=== PATIENT | female | born 1955 | race Caucasian/White ===

== ENCOUNTER 2017-05-26 09:28 | Emergency (ER) | payer MEDICARE, MEDICAID ==
--- NOTE | 2017-05-26 10:21 | XRAY Preliminary Report ---
Exam: XR Wrist 4 View LT IMPRESSION: Mild osteoarthritis without evidence of acute fracture. [facility] SITE ID: [id number]
--- NOTE | 2017-05-26 10:24 | XRAY Report ---
EXAM: LEFT WRIST RADIOGRAPHY EXAM DATE: 05/26/2017 10:06 AM. CLINICAL HISTORY: Recent fracture and re-injury. COMPARISON: None. TECHNIQUE: 4 views. FINDINGS: Bones: Normal. No fractures or bone lesions. Joints: Mild osteoarthritic changes noted. No subluxations. Soft Tissues: Normal. No soft tissue swelling. IMPRESSION: Mild osteoarthritis without evidence of acute fracture. [facility] Referring Provider Line: [phone] SITE ID: [id number]
--- NOTE | 2017-05-26 11:08 | ED Physician Documentation ---
PD HPI UPPER EXT INJURY - Stated complaint Stated Complaint: L WRIST PX - Chief complaint Chief Complaint: Ext Problem - History obtained from History obtained from: Patient - History of Present Illness Location: Left, Wrist Type of injury: Other (catching use) Where injury occurred: Home Timing - onset: How many days ago (2) Timing - duration: Days (2) Timing - details: Abrupt onset, Still present Improved by: Rest, Immobilization Worsened by: Moving, Palpating Associated symptoms: No: Weakness, Numbness Contributing factors: No: Anticoagulated Similar symptoms before: Diagnosis (wrist fracture) Recently seen: Emergency Dept - Additonal information Additional information: 62-year-old female was seen in an emergency department in [place] In the middle of March and diagnosed with a hand fracture she was in a cast for about 1 month. She took this cast off about 5 days ago because she got it wet. She was doing well with her pain until yesterday when she went to get into a truck and had to reach to grab something and pulled on her arm hard. She has since had some pain in the wrist itself.She is able to move the wrist and range of motion but with pain and it is stiff. Review of Systems Constitutional: denies: Fever Respiratory: denies: Cough GI: denies: Vomiting Skin: denies: Rash Musculoskeletal: reports: Extremity pain, Joint pain. 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 - Past Surgical History Past Surgical History: Yes /ACCOUNT RESOLUTION EXPERT: 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, Breast implants, Other - Allergies Allergies/Adverse Reactions: Allergies Allergy/AdvReac Type Severity Reaction Status Date / Time codeine Allergy Rash Verified 05/26/17 09:33 Latex, Natural Rubber Allergy Rash Verified 05/26/17 09:33 - Social History Does the pt smoke?: No Smoking Status: Never smoker Does the pt drink ETOH?: Yes Does the pt have substance abuse?: No Substance Use and Type: Marijuana - Immunizations Immunizations are current?: Yes PD ED PE NORMAL - Vitals Vital signs reviewed: Yes (Hypertension) - General General: No acute distress, Well developed/nourished - HEENT HEENT: Atraumatic, PERRL - Respiratory Respiratory: No respiratory distress - Derm Derm: Normal color, Warm and dry, No rash - Extremities Extremities: No deformity, No edema, Other (There is tenderness to the dorsal wrist on the left side. There is tenderness over the anatomic snuffbox and there is restriction to range of motion secondary to stiffness.) - Neuro Neuro: No motor deficit, No sensory deficit - Psych Psych: Normal mood, Normal affect Results - Vitals Vitals: Vital Signs - 24 hr 05/26/17 09:31 Temperature 36 C L Heart Rate 80 Respiratory 16 Rate Blood Pressure 171/78 H O2 Saturation 100 Oxygen O2 Source Room air - Rads (name of study) Left wrist Radiology: Prelim report reviewed (Impression: Mild osteoarthritis without evidence of acute fracture.), Discussed with rads, EMP read indepedently, See rad report PD MEDICAL DECISION MAKING - ED course Complexity details: reviewed results, re-evaluated patient, considered differential, d/w patient, d/w internal consultant (Dr. Bowen reviews films with me and recommends conservative treatment to include range of motion exercises. This is consistent with post cast syndrome.) ED course: 62-year-old female who is fallen and had a cast placed for about 1 month does not have any evidence of fracture on today's films. She does have some pain and stiffness in her wrist and this is consistent with post cast syndrome. The films have been reviewed by myself with both the radiologist and the orthopod. Departure - Departure Disposition: 01 Home, Self Care Clinical Impression: Wrist pain, left Condition: Stable Instructions: ED Sprain Wrist Follow-Up: [facility] [Provider Group] Comments: Today it appears the pain in your wrist is likely due to the recent immobilization of the wrist and we recommend range of motion exercises and orthopedic follow up. Today in the Emergency Department your blood pressure was elevated. This can happen from the stress of the visit itself, from a current illness or circumstance or from uncontrolled hypertension. If you take blood pressure medications take your usual mediations, have your blood pressure re-checked in an appropriate setting and follow up any elevation with your primary care doctor.
[2017-05-26 11:19] VITALS: BP 176/64
== END 2017-05-26 11:19 | disposition home or self-care (01) ==
LOC: ED 09:28
DX: M25.532 Pain in left wrist (principal); Z85.3 Personal history of malignant neoplasm of breast
CPT/HCPCS: 99283

== ENCOUNTER 2017-06-29 05:38 | Outpatient (CLI) | payer MEDICARE, MEDICAID | END 2017-06-29 05:39 | disposition critical access hospital (66) | LOC: EMS 05:38 | PROVIDERS: ATTEND Surgery | DX: R10.9 Unspecified abdominal pain (principal) | CPT/HCPCS: A0425; A0427 ==

== ENCOUNTER 2017-06-29 05:56 | Emergency (ER) | payer MEDICARE, MEDICAID ==
--- NOTE | 2017-06-29 06:01 | ED Physician Documentation ---
PD HPI ABD PAIN - History obtained from History obtained from: Patient - History of Present Illness Timing - onset: How many days ago (4-5 days of persistent mid to left abd pain, worse last night. Not affected by eating but has had less appetite.) Timing - duration: Days (4-5) Timing - details: Gradual onset, Still present, Constant Quality: Aching, Sharp, Pain Location: LUQ, Periumbilical Radiation: Lower back Improved by: No: Eating, Vomiting (had some episodes of dry-heaving the past couple days, per patient.), Position Worsened by: Position, Palpation. No: Eating, Moving, Breathing Associated symptoms: Nausea, Vomiting (just couple times), Loss of appetite. No : Fever, Hematemesis, Diarrhea (loose stool once 2 days ago, otherwise formed), Constipation, Hematochezia, Dysuria, Near syncope / syncope, Weight loss Similar symptoms before: Has not had sx before Recently seen: Not recently seen (had outpt abd U/S for concern of aneurysm, which showed normal exam (this was few months ago).) - Stated complaint Stated Complaint: LLQ PAIN Review of Systems Constitutional: reports: Myalgias. denies: Fever, Chills Nose: denies: Rhinorrhea / runny nose, Congestion Throat: denies: Sore throat Cardiac: denies: Chest pain / pressure, Palpitations Respiratory: denies: Dyspnea, Cough GI: reports: Abdominal Pain, Nausea. denies: Abdominal Swelling, Hematemesis, Bloody / black stool : denies: Dysuria, Frequency, Discharge Skin: denies: Rash, Lesions Neurologic: reports: Generalized weakness. denies: Near syncope, Altered mental status, Headache Endocrine: denies: Weight loss, Easy bruising / bleeding Immunocompromised: denies: Immunocompromised PD PAST MEDICAL HISTORY - Past Medical History Cardiovascular: None Respiratory: None Neuro: None Endocrine/Autoimmune: None - Family History Family history: reports: Non contributory. denies: Aortic aneursym - Allergies Allergies/Adverse Reactions: Allergies Allergy/AdvReac Type Severity Reaction Status Date / Time codeine Allergy Rash Verified 06/29/17 06:07 Latex, Natural Rubber Allergy Rash Verified 06/29/17 06:07 PD ED PE NORMAL - Vitals Vital signs reviewed: Yes - General General: Alert and oriented X 3, No acute distress, Well developed/nourished - HEENT HEENT: Atraumatic, Moist mucous membranes, Pharynx benign - Neck Neck: Supple, no meningeal sign, No adenopathy - Cardiac Cardiac: RRR, No murmur - Respiratory Respiratory: Clear bilaterally - Abdomen Abdomen: Normal bowel sounds, Soft, Non distended, No organomegaly, Other ( tender above umbilicus and LUQ area with some guarding and percussion tenderness. No rebound nor referred tenderness. Bowel sounds slightly decreased. ) - Female Female : Deferred - Rectal Rectal: Deferred - Back Back: No CVA TTP - Derm Derm: Normal color - Extremities Extremities: No deformity, No tenderness to palpate, Normal ROM s pain, No edema , No calf tenderness / cord - Neuro Neuro: Alert and oriented X 3, No motor deficit, Normal speech - Psych Psych: Normal mood, Normal affect - Vitals Vitals: Vital Signs - 24 hr 06/29/17 06/29/17 06/29/17 06:03 07:01 08:01 Temperature 36.3 C L Heart Rate 72 79 85 Respiratory 16 16 20 Rate Blood Pressure 170/74 H 156/60 H 144/54 H O2 Saturation 100 98 100 06/29/17 08:56 Temperature Heart Rate 61 Respiratory 18 Rate Blood Pressure 150/60 H O2 Saturation 98 Oxygen O2 Source Room air - Labs Labs: Laboratory Tests 06/29/17 06/29/17 06/29/17 06:55 06:55 06:55 WBC 6.1 RBC 3.86 L Hgb 12.1 Hct 36.5 L MCV 94.5 MCH 31.4 H MCHC 33.3 RDW 13.1 Plt Count 216 MPV 9.3 Neut # 3.8 Lymph # 1.8 [place] # 0.4 Eos # 0.1 Baso # 0.0 Absolute Nucleated RBC 0.01 Nucleated RBCs 0.1 Sodium 142 Potassium 2.6 L Chloride 114 H Carbon Dioxide 22 Anion Gap 6.0 BUN 17 Creatinine 0.6 Estimated GFR (MDRD) 101 Glucose 71 Calcium 6.8 L Total Bilirubin 0.7 AST 14 ALT 14 Alkaline Phosphatase 54 Total Protein 5.1 L Albumin 3.1 L Globulin 2.0 L Albumin/Globulin Ratio 1.6 Lipase 28 Urine Color Urine Clarity Urine pH Ur Specific [place] Urine Protein Urine Glucose (UA) Urine Ketones Urine Occult Blood Urine Nitrite Urine Bilirubin Urine Urobilinogen Ur Leukocyte Esterase Ur Microscopic Review Urine Culture Comments H. pylori IgG Antibody Negative 06/29/17 09:53 WBC RBC Hgb Hct MCV MCH MCHC RDW Plt Count MPV Neut # Lymph # [place] # Eos # Baso # Absolute Nucleated RBC Nucleated RBCs Sodium Potassium Chloride Carbon Dioxide Anion Gap BUN Creatinine Estimated GFR (MDRD) Glucose Calcium Total Bilirubin AST ALT Alkaline Phosphatase Total Protein Albumin Globulin Albumin/Globulin Ratio Lipase Urine Color YELLOW Urine Clarity CLEAR Urine pH 7.5 Ur Specific [place] 1.010 Urine Protein NEGATIVE Urine Glucose (UA) NEGATIVE Urine Ketones NEGATIVE Urine Occult Blood TRACE-INTA Urine Nitrite NEGATIVE Urine Bilirubin NEGATIVE Urine Urobilinogen 0.2 (NORMAL) Ur Leukocyte Esterase NEGATIVE Ur Microscopic Review NOT INDICATED Urine Culture Comments NOT INDICATED H. pylori IgG Antibody PD MEDICAL DECISION MAKING - ED course Complexity details: reviewed results, considered differential (not linked with eating. Pain steady for few days. Presume diverticular on left. She had had eval for AAA by abd U/S few months ago and that was normal. Will get regular CT abd, labs, urine. ), d/w patient - ED course ED course: Patient is a 62-year-old female signed out to me this morning pending results of her CAT scan. This patient tells me she has had abdominal pain on the left side off and on for 10 years but for the last week it is been a little worse than usual. She really has not had any other symptoms such as nausea, vomiting fever, chills, constipation diarrhea or lower urinary symptoms. There are no gynecologic complaints either. Her lab work showed mild hypokalemia which was replaced in the emergency department. CT scan of the abdomen and pelvis and other lab work is unremarkable. Her urine is checked and is clean. She was given fluid hydration here and I examined her abdomen is completely soft and benign there is mild increased borborygmi. At this point time I will discharge her to home with a small amount of potassium supplementation and Bentyl I will have her follow-up with her physician and return if worse. Disposition: To home Clinical impression: 1. Lower abdominal pain-cause unknown 2. Mild hypokalemia Rosalio LEIJA (Kike Santamaria) Departure - Departure Disposition: 01 Home, Self Care Clinical Impression: Abdominal pain Condition: Good Instructions: ED Abdominal Pain Unkn Cause Follow-Up: Tiana Simons ARNP [Primary Care Provider] - Prescriptions: Dicyclomine [Bentyl] 10 mg PO TID PRN #16 capsule PRN Reason: Abdominal Pain
[2017-06-29] MEDS ORDERED: MAG HYDROX/AL HYDROX/SIMETH 30 ML UDC PO STA (06:28)
[2017-06-29] MEDS ORDERED: FAMOTIDINE 20 MG/50 ML 50 ML IV ONE ×2 (06:28→06:34)
[2017-06-29] MEDS ORDERED: SODIUM CHLORIDE 0.9% 1,000 ML IV ONE (06:29)
[2017-06-29] MEDS ORDERED: MAG HYDROX/AL HYDROX/SIMETH 30 ML UDC ONE (06:35)
[2017-06-29 07:05] LABS: BASOPHILS % (AUTO) 0.5 %; EOSINOPHILS # (AUTO) 0.1 10^3/uL (0.0-0.7); EOSINOPHILS % (AUTO) 1.6 %; HCT - HEMATOCRIT 36.5 % (37.0-47.0); HGB - HEMOGLOBIN 12.1 g/dL (12.0-16.0); LYMPHOCYTES # (AUTO) 1.8 10^3/uL (1.5-3.5); LYMPHOCYTES % (AUTO) 28.9 %; MEAN CORPUSCULAR HEMOGLOBIN 31.4 pg (27.0-31.0); MEAN CORPUSCULAR HGB CONC 33.3 g/dL (32.0-36.0); MEAN CORPUSCULAR VOLUME 94.5 fL (81.0-99.0); MEAN PLATELET VOLUME 9.3 fL (7.9-10.8); MONOCYTES # (AUTO) 0.4 10^3/uL (0.0-1.0); MONOCYTES % (AUTO) 7.3 %; NEUTROPHILS # (AUTO) 3.8 10^3/uL (1.5-6.6); NEUTROPHILS % (AUTO) 61.7 %; NUCLEATED RED BLOOD CELLS AUTO 0.1 /100WBC; RED BLOOD COUNT 3.86 10^6/uL (4.20-5.40); RED CELL DISTRIBUTION WIDTH 13.1 % (12.0-15.0); UNCORRECTED WHITE BLOOD COUNT 6.1 x10^3/uL; WHITE BLOOD COUNT 6.1 x10^3/uL (4.8-10.8)
[2017-06-29 07:18] LABS: ALBUMIN/GLOBULIN RATIO 1.6 (1.0-2.2); BILIRUBIN,TOTAL 0.7 mg/dL (0.2-1.0); CALCIUM 6.8 mg/dL (8.5-10.3); CREATININE 0.6 mg/dL (0.4-1.0); POTASSIUM 2.6 mmol/L (3.5-5.0); TOTAL PROTEIN 5.1 g/dL (6.7-8.2)
[2017-06-29 07:20] LABS: H. PYLORI IGG ANTIBODY Negative (Negative); HPYLORI NEG QC Negative (Negative); HPYLORI POS QC POSITIVE (Positive)
[2017-06-29] MEDS ORDERED: POTASSIUM CHLOR 10 MEQ/100 ML 100 ML IV ONE ×2 (07:27→07:42)
[2017-06-29] MEDS ORDERED: POTASSIUM BICARB 25 MEQ TABLET PO STA (07:27)
[2017-06-29] MEDS ORDERED: POTASSIUM BICARB 25 MEQ TABLET PO ONE (07:42)
[2017-06-29] MEDS ORDERED: ONDANSETRON 4 MG/2 ML VIAL IVP STA (08:00)
[2017-06-29] MEDS ORDERED: ONDANSETRON 4 MG/2 ML VIAL ONE (08:06)
[2017-06-29] MEDS ORDERED: IOPAMIDOL-300 100 ML VIAL IVP ONE (08:30)
--- NOTE | 2017-06-29 09:37 | CT Preliminary Report ---
Exam: CT Abdomen/Pelvis W/ IMPRESSION: No acute abnormality on abdomen and pelvis CT to explain patient's abdominal pain. [facility] SITE ID: [id number]
--- NOTE | 2017-06-29 09:40 | CT Report ---
EXAM: CT ABDOMEN AND PELVIS EXAM DATE: 06/29/2017 08:37 AM. CLINICAL HISTORY: Mid/upper abd pain for few days. History of left breast cancer status post left viry ast conservation therapy in 1996 COMPARISONS: Limited comparison made with lumbar spine CT of 11/17/2016, limited correlation with abd omen ultrasound of 07/31/2016. TECHNIQUE: Routine helical CT imaging was performed through the abdomen and pelvis. IV contrast: 100 mL Isovue-300. Enteric contrast: No. Reconstructions: Coronal and sagittal. In accordance with CT protocol optimization, one or more of the following dose reduction techniques w ere utilized for this exam: automated exposure control, adjustment of mA and/or KV based on patient s ize, or use of iterative reconstructive technique. FINDINGS: Lung Bases: Bilateral breast implants, incompletely visualized. Minimal bibasilar dependent atelectasis. Heart size at upper normal. Trace pericardial effusion, stab le . Liver: Trace periportal edema, nonspecific, possibly related to hydration status. Gallbladder/Bile Ducts: Unremarkable. Spleen: Normal. Pancreas: Normal. Adrenal Glands: Normal. Kidneys: Normal Peritoneal Cavity/Bowel: Small and large bowel are normal in caliber without evidence of inflammation or obstruction. Moderate colonic stool. No ascites or pneumoperitoneum. No abdominal or pelvic lymph adenopathy. Pelvic Organs: Urinary bladder within normal limits Vasculature: Normal in caliber Bones: No significant abnormality. Other: None. IMPRESSION: No acute abnormality on abdomen and pelvis CT to explain patient's abdominal pain. [facility] Referring Provider Line: [phone] SITE ID: [id number]
[2017-06-29 10:01] LABS: BILIRUBIN,URINE NEGATIVE (NEGATIVE); PH,URINE 7.5 PH (5.0-7.5)
[2017-06-29 10:04] LABS: UA CHARGE (STRIP ONLY) YES; UR CULTURE IF IND NOT INDICATED
[2017-06-29 10:19] VITALS: BP 156/67
== END 2017-06-29 10:23 | disposition home or self-care (01) ==
LOC: EDUNIT# → EDBD → ED 05:56
DX: R10.12 Left upper quadrant pain (principal); R10.33 Periumbilical pain; E87.6 Hypokalemia
CPT/HCPCS: 36415; 74177; 80053; 81003; 83690; 85025; 87339; 96361; 96365; 96375; 99284; A9270; Q9967; 81001; 87086

== ENCOUNTER 2017-08-20 06:31 | Emergency (ER) | payer MEDICARE, MEDICAID ==
[2017-08-20] MEDS ORDERED: cefTRIAXone 1 GM VIAL IM STA (07:24)
[2017-08-20] MEDS ORDERED: DEXAMETHASONE 10 MG/ML VIAL PO STA (07:24)
--- NOTE | 2017-08-20 07:27 | ED Physician Documentation ---
PD HPI URI - Stated complaint Stated Complaint: SOA - Chief complaint Chief Complaint: Resp - History obtained from History obtained from: Patient - History of Present Illness Timing - onset: Yesterday Timing duration: Days (1) Timing details: Gradual onset, Still present Associated symptoms: Fever, Chills, Ear pain, Nasal congestion, Rhinorrhea, Sore throat, Productive cough Contributing factors: Sick contact Improves by: Rest, Medication Worsened by: Activity Similar symptoms before: Diagnosis (pneumonia and bronchitis) Recently seen: Not recently seen - Additional information Additional information: 62-year-old female with a prior history of breast cancer is come to the emergency department today with cough and congestion that began yesterday morning. She has had fever and chills she has ear pain sore throat and tightness to her chest. Review of Systems Ten Systems: 10 systems reviewed and negative Constitutional: reports: Fever, Chills, Myalgias Ears: reports: Loss of hearing, Ear pain Nose: reports: Rhinorrhea / runny nose, Congestion Throat: reports: Sore throat Cardiac: reports: Chest pain / pressure. 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 : None HEENT: None Psych: None Musculoskeletal: Osteoarthritis Derm: None - Past Surgical History Past Surgical History: Yes General: Other /TALENT ASSISTANT: 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, Breast implants, Other - Present Medications Home Medications: Ambulatory Orders Medication Instructions Recorded Confirmed Dicyclomine [Bentyl] 10 mg PO TID PRN #16 capsule 06/29/17 Potassium Citrate [Potassium 10 meq PO BID #14 tablet.er 06/29/17 Citrate ER] Amox/Clav 875/125 [Augmentin] 1 each PO Q12H #20 tablet 08/20/17 - Allergies Allergies/Adverse Reactions: Allergies Allergy/AdvReac Type Severity Reaction Status Date / Time codeine Allergy Rash Verified 08/20/17 06:41 Latex, Natural Rubber Allergy Rash Verified 08/20/17 06:41 - Social History Does the pt smoke?: No Smoking Status: Never smoker Does the pt drink ETOH?: Yes Does the pt have substance abuse?: No - Immunizations Immunizations are current?: Yes - POLST Patient has POLST: No PD ED PE NORMAL - Vitals Vital signs reviewed: Yes (Hypertensive) - General General: No acute distress, Well developed/nourished - HEENT HEENT: Atraumatic, PERRL, EOMI, Other (Both TMs are inflamed the left is more so than the right there is rounding of the landmarks.) - Neck Neck: Supple, no meningeal sign, No bony TTP - Cardiac Cardiac: RRR, No murmur - Respiratory Respiratory: No respiratory distress, Clear bilaterally - Abdomen Abdomen: Soft - Back Back: No CVA TTP, No spinal TTP - Derm Derm: Normal color, Warm and dry, No rash Results - Vitals Vitals: Vital Signs - 24 hr 08/20/17 06:38 Temperature 36.3 C L Heart Rate 92 Respiratory 18 Rate Blood Pressure 177/78 H O2 Saturation 97 Oxygen O2 Source Room air Departure - Departure Disposition: 01 Home, Self Care Clinical Impression: Otitis media Qualifiers: Otitis media type: suppurative Chronicity: acute Laterality: bilateral Recurrence: not specified as recurrent Spontaneous tympanic membrane rupture: without spontaneous rupture Qualified Code(s): H66.003 - Acute suppurative otitis media without spontaneous rupture of ear drum, bilateral Condition: Stable Instructions: ED Otitis Media Acute Adult Follow-Up: Tiana Simons ARNP [Primary Care Provider] - Prescriptions: Amox/Clav 875/125 [Augmentin] 1 each PO Q12H #20 tablet Comments: Today in the Emergency Department your blood pressure was elevated. This can happen from the stress of the visit itself, from a current illness or circumstance or from uncontrolled hypertension. If you take blood pressure medications take your usual mediations, have your blood pressure re-checked in an appropriate setting and follow up any elevation with your primary care doctor.
[2017-08-20] MEDS ORDERED: cefTRIAXone 1 GM VIAL ONE (07:40)
[2017-08-20] MEDS ORDERED: LIDOCAINE 1% 2 ML VIAL ONE (07:41)
[2017-08-20] MEDS ORDERED: DEXAMETHASONE 10 MG/ML VIAL ONE (07:41)
[2017-08-20 07:49] VITALS: BP 148/69
== END 2017-08-20 08:02 | disposition home or self-care (01) ==
LOC: ED 06:31
DX: H66.003 Acute suppurative otitis media without spontaneous rupture of ear drum, bilateral (principal); R03.0 Elevated blood-pressure reading, without diagnosis of hypertension; Z85.3 Personal history of malignant neoplasm of breast
CPT/HCPCS: 96372; 99283

== ENCOUNTER 2018-02-20 14:59 | Outpatient (CLI) | payer MEDICARE, MEDICAID ==
--- NOTE | 2018-02-21 15:00 | CT Report ---
EXAM: CT MAXILLOFACIAL WITHOUT CONTRAST EXAM DATE: 02/20/2018 03:26 PM. CLINICAL HISTORY: History of right-sided facial reconstruction. Now with right eye vision changes. Na lorne pain. COMPARISONS: None. TECHNIQUE: Thin-section axial images were acquired of the face without contrast. Post-processing: Cor onal and sagittal reformats. Other: None. In accordance with CT protocol optimization, one or more of the following dose reduction techniques w ere utilized for this exam: automated exposure control, adjustment of mA and/or KV based on patient s ize, or use of iterative reconstructive technique. FINDINGS: Soft Tissue: No abnormal muscle or fascial plane edema/fluid collection is seen. The infratemporal fo ssa, parapharyngeal spaces, visualized retropharyngeal space, and material chaser spaces are symmetric and unremarkable. Orbits: Postoperative change is seen about the orbits. On the right this involves the floor of the or bit as well as superolateral ridge. Reconstruction of the floor of the right orbit is seen as well. O n the left this involves the superomedial and inferior anterior orbital grier. The globes, optic nerve sheath complex, extraocular muscles, and orbital fat are unremarkable. Bones: Postoperative change with metallic fixation device is seen about the facial regions bilaterall y. This involves the superomedial left orbit, superolateral right orbit, anterior and medial wall of the left maxillary sinus, medial and inferolateral wall of the right maxillary sinus, floor of the ri ght orbit, midline bridge of the nose/nasal bones. No acute fracture or dislocation is seen. Temporomandibular Joints: Mild degenerative change is seen in the right TMJ. Mild cortical irregulari ty is seen in the mandibular condyle. Sinuses: Postoperative change is seen about the maxillary sinuses, greater on the right. Downward dis placement of the roof of the right maxillary sinus is seen. Focal area of bony dehiscence is seen inv olving the anterior inferior wall of the right maxillary antrum. Mild polypoid mucosal thickening is seen anteriorly and superiorly in the right maxillary sinus and circumferentially in the left maxilla ry antrum. The remainder of the paranasal sinuses are clear. The frontal sinuses are nearly aplastic. Partially visualized mastoid air cells and middle ear cavities are clear. Other: None. IMPRESSION: 1. Extensive postoperative change. Postoperative change is seen about the orbits and maxillary sinuse s bilaterally and in the midline at the bridge of the nose. 2. Deformity of the roof of the right maxillary antrum with reconstruction of the orbital floor. 3. No acute bony abnormalities. 4. The orbits are unremarkable. No muscle entrapment is seen. 5. Mucosal thickening in the maxillary antra bilaterally. [facility] Referring Provider Line: [phone] SITE ID: [id number]
== END 2018-02-20 15:00 | disposition home or self-care (01) ==
LOC: DI 14:59
PROVIDERS: ATTEND Nurse Practitioner Family
DX: H53.9 Unspecified visual disturbance (principal); H57.8 Other specified disorders of eye and adnexa; S02.8 Fractures of other specified skull and facial bones
CPT/HCPCS: 70486

== ENCOUNTER 2018-02-24 14:13 | Outpatient (CLI) | payer MEDICARE, MEDICAID ==
--- NOTE | 2018-02-24 16:12 | DEXA Report ---
DEXA SCAN: 02/24/2018 HISTORY: Osteoporosis. TECHNIQUE: Dual energy x-ray absorptiometry (DXA) was performed on a [employer] system. Regions measured are the AP spine, femoral neck, and, if needed, forearm. COMPARISON: 03/05/2016. In accordance with the International Society for Clinical Densitometry (ISCD) guidelines, data from previous exams may be reanalyzed using current recommendations and techniques. This is done to allow a more accurate basis for comparison with the current study. FINDINGS Data for the lumbar spine is as follows: REGION BMD (g/cm/cm) T-SCORE Z-SCORE L1 0.809 -2.7 -0.9 L2 0.849 -2.9 -1.2 L3 0.915 -2.4 -0.6 L4 0.933 -2.2 -0.5 L1-L4 0.879 -2.5 -0.8 NOTE: All evaluable vertebrae are used for classification. Data for the hip is as follows: REGION BMD (g/cm/cm) T-SCORE Z-SCORE Neck 0.615 -3.0 -1.5 TOTAL 0.625 -3.0 -1.7 NOTE: The femoral neck or total proximal femur, whichever is lowest, is used for classification. L1 bone mineral density 0.809 grams per square cm, T-score -2.7, Z-score -0.9. L2 0.849, T-score -2.9, Z-score -1.2. L3 0.915 T-score -2.4, Z-score -0.6. L4 0.933, T score of -2.2, Z-score -0.5. Total: 0.879, -2.5, -0.8. Femoral neck bone mineral density 0.615, T score -3, Z-score -1.5. Total: 0.625, -3, -1.7. IMPRESSION WHO CLASSIFICATION BASED ON THE INTERNATIONAL REFERENCE STANDARD IS OSTEOPOROSIS. FRACTURE RISK IS HIGH. RECOMMENDATION: Patients with diagnosis of osteoporosis or osteopenia should have regular bone mineral density assessment. For those eligible for Medicare, routine testing is allowed once every 2 years. Testing frequency can be increased for patients who have rapidly progressing disease or for those who are receiving medical therapy to restore bone mass. COMMENT World Health Organization (WHO) definitions for osteoporosis and osteopenia: NORMAL BMD: T-score at 1.0 or higher, fracture risk is low. OSTEOPENIA BMD: T-score between 1.0 and -2.5, fracture risk is increased. OSTEOPOROSIS BMD: T-score at 2.5 or lower, fracture risk high. National Osteoporosis Foundation recommends: 1. Obtain adequate dietary calcium (at least 1200 mg per day) and vitamin D (400 -800 international units per day). 2. Participate, as appropriate, in regular weightbearing and muscle- strengthening exercise. 3. Avoid tobacco use and reduce alcohol and caffeine intake. 4. For more detailed information see the website at www.NOF.org. TD: 02/24/2018 15:53 MTDD
== END 2018-02-24 14:14 | disposition home or self-care (01) ==
LOC: DI 14:13
PROVIDERS: ATTEND Nurse Practitioner Family
DX: M81.0 Age-related osteoporosis without current pathological fracture (principal)
CPT/HCPCS: 77080

== ENCOUNTER 2019-02-27 15:32 | Outpatient (CLI) | payer MEDICARE, MEDICAID | END 2019-02-27 15:33 | disposition critical access hospital (66) | LOC: EMS 15:32 | PROVIDERS: ATTEND Surgery | DX: R42 Dizziness and giddiness (principal); R06.00 Dyspnea, unspecified; F41.9 Anxiety disorder, unspecified | CPT/HCPCS: A0425; A0429 ==

== ENCOUNTER 2019-02-27 15:50 | Emergency (ER) | payer MEDICARE, MEDICAID ==
--- NOTE | 2019-02-27 16:16 | ED Physician Documentation ---
PD HPI DYSPNEA - Stated complaint Stated Complaint: DIZZY - Chief complaint Chief Complaint: Resp - History obtained from History obtained from: Patient, EMS - History of Present Illness Timing - onset: Last night Timing - onset during: Rest Timing - details: Gradual onset Pain level max: 3 Pain level now: 2 Inciting event(s): No: Out of meds, URI, Allergic rxn/anaphylaxis, Exercise, Exposure (ie smoke), FB / choking, Immobilization/travel, Emotional event Improved by: Sitting up Worsened by: Laying flat Associated symptoms: No: Fever, Cough, Hemoptysis, Wheezing, Chest pain / discomfort, Palpitations, Diaphoresis, Bilateral edema, Unilateral edema, Anxiety Recently seen: Not recently seen - Additional information Additional information: Patient states that she has chronic back pain and did smoke a little heroin last night to help with her pain. Difficulty breathing started this morning. She states that she just feels like she cannot get a deep breath. No leg swelling. No recent immobilization. No travel. 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 HEENT: None Psych: None Musculoskeletal: Osteoarthritis Derm: None - Past Surgical History Past Surgical History: Yes General: Other /OUTSEWER: 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, Breast implants, Other - Present Medications Home Medications: Ambulatory Orders Medication Instructions Recorded Confirmed Dicyclomine [Bentyl] 10 mg PO TID PRN #16 capsule 06/29/17 Potassium Citrate [Potassium 10 meq PO BID #14 tablet.er 06/29/17 Citrate ER] Amox/Clav 875/125 [Augmentin] 1 each PO Q12H #20 tablet 08/20/17 - Allergies Allergies/Adverse Reactions: Allergies Allergy/AdvReac Type Severity Reaction Status Date / Time codeine Allergy Rash Verified 02/27/19 15:57 Latex, Natural Rubber Allergy Rash Verified 02/27/19 15:57 - Social History Does the pt smoke?: No Smoking Status: Never smoker Does the pt drink ETOH?: Yes Does the pt have substance abuse?: Yes Substance Use and Type: Heroin - Immunizations Immunizations are current?: Yes - POLST Patient has POLST: No PD ED PE NORMAL - Vitals Vital signs reviewed: Yes - General General: Alert and oriented X 3, No acute distress - HEENT HEENT: Moist mucous membranes - Neck Neck: Supple, no meningeal sign - Cardiac Cardiac: RRR - Respiratory Respiratory: No respiratory distress, Clear bilaterally - Abdomen Abdomen: Soft, Other (Tender palpation right upper quadrant. Positive Sarah sign.) - Back Back: No CVA TTP, No spinal TTP - Derm Derm: Warm and dry - Extremities Extremities: No edema, No calf tenderness / cord - Neuro Neuro: Alert and oriented X 3 Results - Vitals Vitals: Vital Signs - 24 hr 02/27/19 02/27/19 02/27/19 15:58 16:01 18:01 Temperature 36.8 C Heart Rate 70 70 70 Respiratory 16 16 16 Rate Blood Pressure 124/106 H 179/82 H 144/67 H O2 Saturation 100 100 98 02/27/19 19:06 Temperature 36.5 C Heart Rate 75 Respiratory 18 Rate Blood Pressure 182/76 H O2 Saturation 99 Oxygen O2 Source Room air - EKG (time done) 1600 Rate: Rate (enter#) (70) Rhythm: NSR Foley: Normal Intervals: Normal TX QRS: Normal, LVH Ischemia: Normal ST segments - Labs Labs: Laboratory Tests 02/27/19 02/27/19 02/27/19 16:25 16:25 16:25 WBC 4.6 L RBC 4.37 Hgb 13.7 Hct 41.0 MCV 93.7 MCH 31.2 H MCHC 33.3 RDW 12.4 Plt Count 243 MPV 8.9 Neut # (Auto) 2.7 Lymph # (Auto) 1.4 L Barnes # (Auto) 0.3 Eos # (Auto) 0.1 Baso # (Auto) 0.0 Absolute Nucleated RBC 0.00 Nucleated RBC % 0.1 Sodium 136 Potassium 3.8 Chloride 98 L Carbon Dioxide 28 Anion Gap 10.0 BUN 14 Creatinine 0.7 Estimated GFR (MDRD) 84 L Glucose 101 H Calcium 9.0 Total Bilirubin 0.6 AST 19 ALT 17 Alkaline Phosphatase 75 Troponin I < 0.04 Total Protein 7.0 Albumin 4.2 Globulin 2.8 Albumin/Globulin Ratio 1.5 Lipase 35 - Rads (name of study) RUQ US Radiology: Prelim report reviewed, EMP read contemporaneously, See rad report (No clear findings to explain right upper quadrant pain. No gallstones. 2. Possible small right pleural effusion. ) cxr Radiology: Prelim report reviewed, EMP read contemporaneously, See rad report (No acute cardiopulmonary process. ) PD MEDICAL DECISION MAKING - ED course Complexity details: reviewed results, re-evaluated patient, considered differential, d/w patient ED course: 64-year-old female with dyspnea today. Symptoms resolved in the emergency department. She is not hypoxic. Not tachycardic. No evidence of pulmonary embolus. No acute findings on chest x-ray. Did have right upper quadrant pain and tenderness, but ultrasound is normal except for a possible small right pleural effusion. No evidence of acute coronary syndrome. No pneumothorax. Patient counseled regarding signs and symptoms for which I believe and urgent re-evaluation would be necessary. Patient with good understanding of and agreement to plan and is comfortable going home at this time This document was made in part using voice recognition software. While efforts are made to proofread this document, sound alike and grammatical errors may occur. Departure - Departure Disposition: 01 Home, Self Care Clinical Impression: Dyspnea Qualifiers: Dyspnea type: unspecified Qualified Code(s): R06.00 - Dyspnea, unspecified Condition: Good Instructions: ED Dyspnea Shortness of Breath Follow-Up: Mirtha Brown DNP [Primary Care Provider] - Within 1 week Comments: The cause of your symptoms is unclear today. Follow-up with your doctor for further care. You may have a small pleural effusion on the right side that may be contributing to her symptoms. Discharge Date/Time: 02/27/19 19:06
[2019-02-27 16:35] LABS: BASOPHILS % (AUTO) 0.5 %; EOSINOPHILS # (AUTO) 0.1 10^3/uL (0.0-0.7); EOSINOPHILS % (AUTO) 1.8 %; HGB - HEMOGLOBIN 13.7 g/dL (12.0-16.0); LYMPHOCYTES # (AUTO) 1.4 10^3/uL (1.5-3.5); LYMPHOCYTES % (AUTO) 31.5 %; MEAN CORPUSCULAR HEMOGLOBIN 31.2 pg (27.0-31.0); MEAN CORPUSCULAR HGB CONC 33.3 g/dL (32.0-36.0); MEAN CORPUSCULAR VOLUME 93.7 fL (81.0-99.0); MEAN PLATELET VOLUME 8.9 fL (7.9-10.8); MONOCYTES # (AUTO) 0.3 10^3/uL (0.0-1.0); MONOCYTES % (AUTO) 6.6 %; NEUTROPHILS # (AUTO) 2.7 10^3/uL (1.5-6.6); NEUTROPHILS % (AUTO) 59.6 %; PLT - PLATELET COUNT 243 10^3/uL (130-450); RED BLOOD COUNT 4.37 10^6/uL (4.20-5.40); RED CELL DISTRIBUTION WIDTH 12.4 % (12.0-15.0); WHITE BLOOD COUNT 4.6 x10^3/uL (4.8-10.8)
[2019-02-27 16:47] LABS: ALBUMIN 4.2 g/dL (3.2-5.5); ALBUMIN/GLOBULIN RATIO 1.5 (1.0-2.2); BILIRUBIN,TOTAL 0.6 mg/dL (0.2-1.0); CREATININE 0.7 mg/dL (0.4-1.0)
--- NOTE | 2019-02-27 16:48 | XRAY Report ---
Reason: Chest Pain Procedure Date: 02/27/2019 Accession Number: [id number] / [id number] Procedure: XR - Chest 1 View X-Ray CPT Code: 50951 FULL RESULT: EXAM:CHEST RADIOGRAPHY EXAM DATE: 02/27/2019 04:21 PM. CLINICAL HISTORY: Chest Pain. COMPARISON: XR CHEST PA AND LAT 06/17/2012 1:44 PM. TECHNIQUE: 1 view. FINDINGS: Lungs/Pleura: There is mild biapical pleural parenchymal scarring. No focal opacities evident. No pleural effusion. No pneumothorax. Mediastinum: Within exam limitations, the cardiomediastinal contour is normal. Other: None. IMPRESSION: No acute cardiopulmonary process. RADIA
--- NOTE | 2019-02-27 18:40 | Ultrasound Report ---
Reason: RUQ abd pain Procedure Date: 02/27/2019 Accession Number: [id number] / [id number] Procedure: US - Abdomen Limited CPT Code: FULL RESULT: EXAM: ABDOMEN ULTRASOUND LIMITED, RUQ EXAM DATE: 02/27/2019 06:23 PM. CLINICAL HISTORY: RUQ abd pain. COMPARISON: CT abdomen and pelvis 06/29/2017. TECHNIQUE: Real-time scanning was performed with static images obtained. FINDINGS: Liver: Normal in size and echotexture. 13.2 cm. Main portal vein flow: Hepatopetal. Gallbladder: Normal. No stones, wall thickening, or sonographic Saarh's sign. Biliary System: CBD measures 6 mm. No intrahepatic or extrahepatic ductal dilatation. Other: Normal sized right kidney without hydronephrosis. Small 0.5 cm hyperechoic cortical focus of the upper pole of the right kidney which is nonspecific, possibly a small angiomyolipoma. Possible small right pleural effusion. IMPRESSION: 1. No clear findings to explain right upper quadrant pain. No gallstones. 2. Possible small right pleural effusion. RADIA
[2019-02-27 19:07] VITALS: BP 182/76
== END 2019-02-27 19:06 | disposition home or self-care (01) ==
LOC: EDUNIT# → ED 15:50
DX: R06.00 Dyspnea, unspecified (principal); R10.11 Right upper quadrant pain; G89.29 Other chronic pain
CPT/HCPCS: 36415; 71045; 76705; 80053; 83690; 84484; 85025; 93005; 99283

== ENCOUNTER 2019-07-24 14:07 | Outpatient (CLI) | payer MEDICARE, MEDICAID ==
--- NOTE | 2019-07-27 00:13 | XRAY Report ---
Reason: JOINT PAIN Procedure Date: 07/24/2019 Accession Number: [id number] / [id number] Procedure: XR - Knee 2 View LT CPT Code: FULL RESULT: EXAM: LEFT KNEE RADIOGRAPHY EXAM DATE: 07/24/2019 02:28 PM. CLINICAL HISTORY: JOINT PAIN. COMPARISON: None. TECHNIQUE: 2 views. FINDINGS: Bones: Normal. No fractures or bone lesions. Joints: Normal. No effusion. No subluxations. Soft Tissues: Normal. No soft tissue swelling. IMPRESSION: Normal knee radiography. RADIA
== END 2019-07-24 14:08 | disposition home or self-care (01) ==
LOC: DI 14:07
PROVIDERS: ATTEND Registered Nurse
DX: M25.50 Pain in unspecified joint (principal)

== ENCOUNTER 2019-09-11 16:41 | Outpatient (CLI) | payer MEDICARE, MEDICAID ==
--- NOTE | 2019-09-13 05:58 | XRAY Report ---
Reason: JOINT PAIN Procedure Date: 09/11/2019 Accession Number: [id number] / [id number] Procedure: XR - Elbow 2 View RT CPT Code: FULL RESULT: EXAM: RIGHT ELBOW RADIOGRAPHY EXAM DATE: 09/11/2019 05:15 PM. CLINICAL HISTORY: Joint pain and swelling. COMPARISON: None. TECHNIQUE: 2 views. FINDINGS: Bones: No fracture seen. No acute osseous abnormality. Joints: No dislocation seen. Joint spaces appear preserved. No joint effusion identified. Soft Tissues: Mild soft tissue swelling. IMPRESSION: 1. No acute osseous abnormality seen. RADIA
--- NOTE | 2019-09-13 06:08 | XRAY Report ---
Reason: JOINT PAIN Procedure Date: 09/11/2019 Accession Number: [id number] / [id number] Procedure: XR - Shoulder 2 View RT CPT Code: FULL RESULT: EXAM: RIGHT SHOULDER RADIOGRAPHY EXAM DATE: 09/11/2019 05:15 PM. CLINICAL HISTORY: Shoulder pain for 3-4 months, increasing pain. COMPARISON: None. TECHNIQUE: 2 views. FINDINGS: Bones: No acute displaced fractures or suspicious bony lesion. Joints: No dislocation. Moderate degenerative change of the shoulder. Soft Tissues: No significant soft tissue swelling. IMPRESSION: Moderate degenerative change. No acute bony abnormality. RADIA
== END 2019-09-11 16:42 | disposition home or self-care (01) ==
LOC: DI 16:41
PROVIDERS: ATTEND Family Medicine
DX: M25.521 Pain in right elbow (principal); M19.011 Primary osteoarthritis, right shoulder

== ENCOUNTER 2019-10-11 16:02 | Outpatient (CLI) | payer MEDICARE, MEDICAID ==
--- NOTE | 2019-10-11 16:41 | XRAY Report ---
Reason: JOINT PAIN Procedure Date: 10/11/2019 Accession Number: [id number] / [id number] Procedure: XR - Hip w/Pelvis 2-3V LT CPT Code: Final Report FULL RESULT: EXAM: LEFT HIP RADIOGRAPHY EXAM DATE: 10/11/2019 04:30 PM. CLINICAL HISTORY: JOINT PAIN. COMPARISON: None. TECHNIQUE: 2 views. FINDINGS: Bones: No fractures or bone lesions. Bones appear osteopenic. Joints: Hip joints are relatively preserved. Mild pubic symphyseal and SI joint degeneration. Mild lower lumbar spinal degeneration. Soft Tissues: Above average volume of stool in the colon. Otherwise unremarkable. IMPRESSION: 1. No acute osseous abnormality. RADIA
== END 2019-10-11 16:03 | disposition home or self-care (01) ==
LOC: DI 16:02
PROVIDERS: ATTEND Family Medicine
DX: M25.552 Pain in left hip (principal)

== ENCOUNTER 2019-10-28 04:48 | Emergency (ER) | payer MEDICAID, MEDICARE ==
[2019-10-28 04:58] VITALS: BP 175/84
--- NOTE | 2019-10-28 05:06 | ED Physician Documentation ---
PD HPI SKIN - Stated complaint Stated Complaint: LEG PX - Chief complaint Chief Complaint: Wound - History obtained from History obtained from: Patient - History of Present Illness Timing - onset: How many days ago (2) Timing - duration: Days (2) Timing - details: Gradual onset (Noted a red spot that looked like a pimple and then it started draining purulence. Its more red and a bit bigger today and is becoming more tender. 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 HEENT: None Psych: None Musculoskeletal: Osteoarthritis Derm: None - Past Surgical History Past Surgical History: Yes General: 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: 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, Breast implants, Other - Present Medications Home Medications: Ambulatory Orders Medication Instructions Recorded Confirmed Dicyclomine [Bentyl] 10 mg PO TID PRN #16 capsule 06/29/17 Potassium Citrate [Potassium 10 meq PO BID #14 tablet.er 06/29/17 Citrate ER] Amox/Clav 875/125 [Augmentin] 1 each PO Q12H #20 tablet 08/20/17 Mupirocin 1 applic TP TID #15 g 10/28/19 Sulfamethox/Trimeth 800/160 1 each PO BID #14 tablet 10/28/19 [Bactrim Ds 800/160] - Allergies Allergies/Adverse Reactions: Allergies Allergy/AdvReac Type Severity Reaction Status Date / Time codeine Allergy Rash Verified 10/28/19 04:58 Latex, Natural Rubber Allergy Rash Verified 10/28/19 04:58 - Social History Does the pt smoke?: No Smoking Status: Never smoker Does the pt drink ETOH?: Yes Does the pt have substance abuse?: Yes - Immunizations Immunizations are current?: Yes - POLST Patient has POLST: No PD ED PE NORMAL - Vitals Vital signs reviewed: Yes - General General: Alert and oriented X 3, No acute distress, Well developed/nourished - Derm Derm: Normal color, Warm and dry, Other (The lower aspect of the posterior thigh shows a 2 cm rounded area of redness with tenderness. There is some spontaneous drainage of purulent material which is cultured. There is no fluctuance felt. There is some mild induration.) - Neuro Neuro: No motor deficit, No sensory deficit Results - Vitals Vitals: Vital Signs - 24 hr 10/28/19 04:50 Temperature 36.5 C Heart Rate 90 Respiratory 16 Rate Blood Pressure 175/84 H O2 Saturation 100 Oxygen O2 Source Room air PD MEDICAL DECISION MAKING - ED course Complexity details: considered differential (This looks like a small draining abscess. There is no residual fluctuance at this point so no further I&D is needed. We will treated with antibiotics.), d/w patient Departure - Departure Disposition: 01 Home, Self Care Clinical Impression: Abscess of thigh Condition: Stable Record reviewed to determine appropriate education?: Yes Instructions: ED Staph Infec Abx Tx Only Follow-Up: KELSY LOJA MD [Primary Care Provider] - Prescriptions: Mupirocin 1 applic TP TID #15 g Sulfamethox/Trimeth 800/160 [Bactrim Ds 800/160] 1 each PO BID #14 tablet Comments: Warm ice compresses or soaks to continue to promote drainage from the site. It does look to be an infection in that area. Hard to tell what the initial injury was: An abrasion or puncture or pimple or potentially bug bite. Mupirocin antibiotic ointment 2-3 times daily to the area. Bactrim antibiotic twice daily for a week. Recheck if not improving well over the next few days and all resolved by 4 to 5 days. Ibuprofen or naproxen or Tylenol as needed for pains.
[2019-10-28] MEDS ORDERED: IBUPROFEN 600 MG TABLET PO STA (05:15)
[2019-10-28] MEDS ORDERED: MUPIROCIN 2% OINT 1 GM TOP STA (05:16)
[2019-10-28] MEDS ORDERED: SULFAMETH/TRIMETH DS 800/160 MG TABLET PO STA (05:16)
== END 2019-10-28 05:30 | disposition home or self-care (01) ==
LOC: ED 04:48
DX: L02.415 Cutaneous abscess of right lower limb (principal)
CPT/HCPCS: 87070; 87181; 87205; 99283; A9270

== ENCOUNTER 2019-10-31 13:06 | Emergency (ER) | payer MEDICARE ==
[2019-10-31 13:59] VITALS: BP 164/66
--- NOTE | 2019-10-31 14:10 | ED Physician Documentation ---
PD HPI SKIN - Stated complaint Stated Complaint: REACTION TO MEDICATION - Chief complaint Chief Complaint: General - History obtained from History obtained from: Patient - History of Present Illness Timing - onset: How many days ago (1-2) Timing - duration: Days Timing - details: Gradual onset (The patient was seen 3 days ago for a thigh abscess with treatment with antibiotics topical and oral. She states she is getting nauseous when she takes the Bactrim. She states the infection is improved quite a bit but not completely resolved as yet.) Location: RLE (thigh) Associated symptoms: N/V/D (She has had nausea when taking medications but only one episode of vomiting. No diarrhea.). No: Fever Recently seen: Emergency Dept Review of Systems Constitutional: denies: Fever, Chills, Myalgias GI: reports: Nausea, Vomiting. 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 TECHNICIAN: 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, Breast implants, Other - Present Medications Home Medications: Ambulatory Orders Medication Instructions Recorded Confirmed Dicyclomine [Bentyl] 10 mg PO TID PRN #16 capsule 06/29/17 Potassium Citrate [Potassium 10 meq PO BID #14 tablet.er 06/29/17 Citrate ER] Amox/Clav 875/125 [Augmentin] 1 each PO Q12H #20 tablet 08/20/17 Mupirocin 1 applic TP TID #15 g 10/28/19 Sulfamethox/Trimeth 800/160 1 each PO BID #14 tablet 10/28/19 [Bactrim Ds 800/160] Doxycycline Monohydrate 100 mg PO BID #14 tablet 10/31/19 Ondansetron Odt [Zofran] 4 mg TL Q6H PRN #15 tablet 10/31/19 - Allergies Allergies/Adverse Reactions: Allergies Allergy/AdvReac Type Severity Reaction Status Date / Time codeine Allergy Rash Verified 10/31/19 13:22 Latex, Natural Rubber Allergy Rash Verified 10/31/19 13:22 - Social History Does the pt smoke?: No Smoking Status: Never smoker Does the pt drink ETOH?: Yes Does the pt have substance abuse?: Yes Substance Use and Type: Marijuana - Immunizations Immunizations are current?: Yes - POLST Patient has POLST: No PD ED PE NORMAL - Vitals Vital signs reviewed: Yes - General General: Alert and oriented X 3, Well developed/nourished - Derm Derm: Normal color, Warm and dry - Extremities Extremities: Other (The right posterior lateral thigh shows a improved area of redness and swelling to just a 1 cm diameter area. There is slight tenderness still. It looks much improved but still not completely resolved.) - Neuro Neuro: No motor deficit, No sensory deficit Results - Vitals Vitals: Vital Signs - 24 hr 10/31/19 10/31/19 13:20 13:58 Temperature 36.7 C 36.8 C Heart Rate 100 90 Respiratory 20 14 Rate Blood Pressure 173/71 H 164/66 H O2 Saturation 100 100 Oxygen O2 Source Room air PD MEDICAL DECISION MAKING - ED course Complexity details: considered differential (Her abscess and infection is improving though still with some redness. She is having upset stomach from the Bactrim so we can switch to doxycycline based on the wound culture from the other day. Can add ondansetron if needed.), d/w patient Departure - Departure Disposition: 01 Home, Self Care Clinical Impression: Drug-induced nausea and vomiting, Abscess re-check Condition: Stable Record reviewed to determine appropriate education?: Yes Follow-Up: KELSY LOJA MD [Primary Care Provider] - Prescriptions: Doxycycline Monohydrate 100 mg PO BID #14 tablet Ondansetron Odt [Zofran] 4 mg TL Q6H PRN #15 tablet PRN Reason: Nausea / Vomiting Comments: Your infection/abscess is looking much better but still has a little bit of redness so we can change from your current antibiotic to doxycycline. Add ondansetron if needed for nausea. Be sure to take the medicines with foods. Continue the topical ointment as well. This should continue to keep improving and the fully improved over another several more days.
[2019-10-31] MEDS ORDERED: ONDANSETRON ODT 4 MG TABLET TL STA (14:18)
[2019-10-31] MEDS ORDERED: DOXYCYCLINE 100 MG TABLET PO STA (14:18)
== END 2019-10-31 14:50 | disposition home or self-care (01) ==
LOC: ED 13:06
DX: R11.2 Nausea with vomiting, unspecified (principal); T36.8X5A Adverse effect of other systemic antibiotics, initial encounter; Z48.00 Encounter for change or removal of nonsurgical wound dressing
CPT/HCPCS: 99282; 99283; A9270; Q0162

== ENCOUNTER 2019-11-18 03:29 | Emergency (ER) | payer MEDICARE, MEDICAID ==
[2019-11-18 03:40] VITALS: BP 153/84
--- NOTE | 2019-11-18 04:43 | ED Physician Documentation ---
History of Present Illness - Stated complaint Stated Complaint: LEFT LEG PX - Chief complaint Chief Complaint: General - History obtained from History obtained from: Patient - History of Present Illness Timing: How many weeks ago (3-4 weeks) Pain level now: 4 Improved by: nothing Worsened by: no apparent exacerbating factors - Additonal information Additional information: patient states "my infection is not going away", "I had a spider bite that turned into MRSA". Patient was T+R earlier this month for cellulitis with bactrim, returned for n/v and antibiotic was changed to doxycycline (culture had grown MRSA by return visit) and she says she improved with this medication. She says she subsequently dropped a heavy object on her left solorio, causing right shoulder pain (from lifting) and left leg pain. She was evaluated in [facility] for this; she says xrays were performed on her shoulder and left leg and these were unremarkable. She says the left leg is red and painful and she is worried she has another skin infection. She presents with a friend who is also registered in ED as a patient. 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, Breast implants, Other - Present Medications Home Medications: Ambulatory Orders Medication Instructions Recorded Confirmed Dicyclomine [Bentyl] 10 mg PO TID PRN #16 capsule 06/29/17 Potassium Citrate [Potassium 10 meq PO BID #14 tablet.er 06/29/17 Citrate ER] Amox/Clav 875/125 [Augmentin] 1 each PO Q12H #20 tablet 08/20/17 Mupirocin 1 applic TP TID #15 g 10/28/19 Sulfamethox/Trimeth 800/160 1 each PO BID #14 tablet 10/28/19 [Bactrim Ds 800/160] Doxycycline Monohydrate 100 mg PO BID #14 tablet 10/31/19 Ondansetron Odt [Zofran] 4 mg TL Q6H PRN #15 tablet 10/31/19 Clindamycin HCl [Clindamycin 300MG 300 mg PO Q6H #20 capsule 11/18/19 CAP] traMADol [Ultram] 50 mg PO Q4-6H PRN #14 tablet 11/18/19 - Allergies Allergies/Adverse Reactions: Allergies Allergy/AdvReac Type Severity Reaction Status Date / Time codeine Allergy Rash Verified 10/31/19 13:22 Latex, Natural Rubber Allergy Rash Verified 10/31/19 13:22 - Social History Does the pt smoke?: No Smoking Status: Never smoker Does the pt drink ETOH?: Yes Does the pt have substance abuse?: Yes - Immunizations Immunizations are current?: Yes - POLST Patient has POLST: No PD ED PE NORMAL - Vitals Vital signs reviewed: Yes - General General: Alert and oriented X 3, No acute distress, Well developed/nourished - Extremities Extremities: No deformity, No tenderness to palpate, Normal ROM s pain, No edema, Other (right posterior proximal thigh: no erythema, minimal tenderness, no fluctuance in area of recent abscess that spontaneously drained (per ED record) . LLE anterior lower leg (mid/lower pretibial surface): superficial abrasion with trace surrounding erythema, no deformity, mild tenderness) PD ED PE EXPANDED - Psych Psych: Anxious, Other (anxoius and then tearful during HPI, needs to be refocussed at times on question asked due to tangential thinking/answers) Results - Vitals Vitals: Oxygen O2 Source Room air PD MEDICAL DECISION MAKING - ED course Complexity details: reviewed old records, considered differential, d/w patient ED course: there is mild erythema surrounding superficial linear abrasion to LLE, and both this area as well as the area of recent RLE abscess/cellulitis are tender. The tenderness, as gauged by her reaction to palpation, appears to be out of proportion to the appearance of these areas, and she repeatedly says that she feels that the right thigh feels as if there is swelling under the skin; she insists this is how it felt just as she developed the previous infection. She also says tylenol and ibuprofen have not been adequately controlling her pain. Will rx short course of PO clindamycin and tramadol. Departure - Departure Disposition: 01 Home, Self Care Clinical Impression: Leg pain Qualifiers: Laterality: bilateral Qualified Code(s): M79.604 - Pain in right leg Condition: Good Instructions: ED Infec Skin Cellulitis, ED Contusion Lower Ext Follow-Up: Sharon Ashton MD [Primary Care Provider] - (Call to arrange for next available appointment) Prescriptions: Clindamycin HCl [Clindamycin 300MG CAP] 300 mg PO Q6H #20 capsule traMADol [Ultram] 50 mg PO Q4-6H PRN #14 tablet PRN Reason: Pain Discharge Date/Time: 11/18/19 05:26
[2019-11-18] MEDS ORDERED: traMADol 50 MG TABLET PO STA (05:04)
[2019-11-18] MEDS ORDERED: CLINDAMYCIN 150 MG CAPSULE PO STA (05:06)
== END 2019-11-18 05:26 | disposition home or self-care (01) ==
LOC: ED 03:29
DX: M79.604 Pain in right leg (principal); M79.605 Pain in left leg; S80.812A Abrasion, left lower leg, initial encounter; W20.8XXA Other cause of strike by thrown, projected or falling object, initial encounter
CPT/HCPCS: 99282; 99283; A9270

== ENCOUNTER 2020-08-23 12:45 | Emergency (ER) | payer MEDICARE, MEDICAID ==
[2020-08-23] MEDS ORDERED: KETOROLAC 60 MG/2 ML VIAL IM STA (15:07)
[2020-08-23] MEDS ORDERED: HYDROmorphone 1 MG/ML CARPUJECT IM STA (15:07)
--- NOTE | 2020-08-23 15:36 | XRAY Report ---
PROCEDURE: Sacrum/Coccyx INDICATIONS: pain, possible fx TECHNIQUE: 3 views of the sacrum and coccyx acquired. COMPARISON: None FINDINGS: Bones: No fractures or dislocations. No suspicious bony lesions. Mild bilateral sacroiliac joint o steoarthritic degenerative changes. Soft tissues: Visualized bowel gas pattern is normal. No suspicious soft tissue densities. IMPRESSION: No fracture. No acute osseous lesion. If there is continued clinical concern for pathology, then repe at plain film radiographs (7-10 days) or advanced imaging (CT, MR, bone scan) should be considered fo r further evaluation. Reviewed by: Zenaida Casas MD, PhD on 08/23/2020 3:34 PM PDT Approved by: Zenaida Casas MD, PhD on 08/23/2020 3:34 PM PDT Station ID: [id number]
--- NOTE | 2020-08-23 16:00 | ED Physician Documentation ---
History of Present Illness - Stated complaint Stated Complaint: LOWER BACK PX - Chief complaint Chief Complaint: Back Pain - History obtained from History obtained from: Patient - Additonal information Additional information: Patient comes emergency department complaining of low back pain that radiates from her sacrum through her left buttock and down her leg. Patient denies any specific trauma. She states she has a history of low back problems and that she woke up this morning feeling the pain. Patient states she has had some intermittent numbness in the leg for some time but denies worsening of this. No weakness. No loss of bowel or bladder function. Patient denies any fevers or chills. No abdominal pain. No other complaints at this time. Review of Systems Ten Systems: 10 systems reviewed and negative Constitutional: denies: Fever, Chills Eyes: reports: Reviewed and negative Ears: reports: Reviewed and negative Nose: reports: Reviewed and negative Throat: reports: Reviewed and negative Cardiac: reports: Reviewed and negative Respiratory: reports: Reviewed and negative GI: denies: Abdominal Pain, Constipation : denies: Unable to Void, Incontinent Skin: reports: Reviewed and negative Musculoskeletal: reports: Back pain, Extremity pain Neurologic: reports: Numbness. 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: 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, Breast implants, Other - Present Medications Home Medications: Ambulatory Orders Medication Instructions Recorded Confirmed Dicyclomine [Bentyl] 10 mg PO TID PRN #16 capsule 06/29/17 Potassium Citrate [Potassium 10 meq PO BID #14 tablet.er 06/29/17 Citrate ER] Amox/Clav 875/125 [Augmentin] 1 each PO Q12H #20 tablet 08/20/17 Mupirocin 1 applic TP TID #15 g 10/28/19 Sulfamethox/Trimeth 800/160 1 each PO BID #14 tablet 10/28/19 [Bactrim Ds 800/160] Doxycycline Monohydrate 100 mg PO BID #14 tablet 10/31/19 Ondansetron Odt [Zofran] 4 mg TL Q6H PRN #15 tablet 10/31/19 Clindamycin HCl [Clindamycin 300MG 300 mg PO Q6H #20 capsule 11/18/19 CAP] traMADol [Ultram] 50 mg PO Q4-6H PRN #14 tablet 11/18/19 HYDROcod/ACETAM 5/325 [Felda 5/325] 1 - 2 ea PO Q6H PRN #10 tablet 08/23/20 Ibuprofen [Motrin] 800 mg PO Q8H PRN #30 tablet 08/23/20 - Allergies Allergies/Adverse Reactions: Allergies Allergy/AdvReac Type Severity Reaction Status Date / Time codeine Allergy Rash Verified 08/23/20 12:51 Latex, Natural Rubber Allergy Rash Verified 08/23/20 12:51 - Social History Does the pt smoke?: No Smoking Status: Never smoker Does the pt drink ETOH?: Yes Does the pt have substance abuse?: Yes - Immunizations Immunizations are current?: Yes - POLST Patient has POLST: No PD ED PE NORMAL - Vitals Vital signs reviewed: Yes - General General: Alert and oriented X 3, No acute distress - HEENT HEENT: Atraumatic, PERRL, EOMI, Moist mucous membranes - Neck Neck: Supple, no meningeal sign - Respiratory Respiratory: No respiratory distress - Back Back: Other (Diffuse sacral tenderness and L paraspinal muscular tenderness. SI joint tenderness.) - Derm Derm: Warm and dry - Extremities Extremities: No deformity - Neuro Neuro: Alert and oriented X 3 - Psych Psych: Normal mood, Normal affect Results - Vitals Vitals: Vital Signs - 24 hr 08/23/20 08/23/20 12:52 16:11 Temperature 37.4 C 36.8 C Heart Rate 97 95 Respiratory 20 16 Rate Blood Pressure 130/61 129/65 O2 Saturation 97 97 Oxygen O2 Source Room air - Rads (name of study) sacral XR Radiology: Final report received, EMP read indepedently, See rad report (neg) PD MEDICAL DECISION MAKING - ED course Complexity details: reviewed results, re-evaluated patient, considered differential, d/w patient ED course: Pt was treated symptomatically in the ED. XR was negative. We have discussed home management of sx, as well as the usual indications for return. Departure - Departure Disposition: 01 Home, Self Care Clinical Impression: Back pain Qualifiers: Back pain location: low back pain Chronicity: acute Back pain laterality: left Sciatica presence: with sciatica Sciatica laterality: sciatica of left side Qualified Code(s): M54.42 - Lumbago with sciatica, left side Condition: Stable Instructions: ED Neck Back Pain General, ED Sciatica Prescriptions: Ibuprofen [Motrin] 800 mg PO Q8H PRN #30 tablet PRN Reason: PAIN &/OR FEVER HYDROcod/ACETAM 5/325 [Felda 5/325] 1 - 2 ea PO Q6H PRN #10 tablet PRN Reason: Pain Comments: Your x-ray looks good. There is no evidence of a broken bone. However, you do have some arthritis in your low back and this is most likely the cause of your ongoing pain. Please take the medications prescribed, as needed. Follow-up with your primary care physician for further concerns. Discharge Date/Time: 08/23/20 16:11
[2020-08-23 16:12] VITALS: BP 129/65
== END 2020-08-23 16:11 | disposition home or self-care (01) ==
LOC: ED 12:45
DX: M54.42 Lumbago with sciatica, left side (principal); M47.898 Other spondylosis, sacral and sacrococcygeal region
CPT/HCPCS: 72220; 96372; 99283; 99284; J1170

== ENCOUNTER 2021-04-07 08:00 | Outpatient (CLI) | payer MEDICARE, MEDICAID | END 2021-04-07 23:59 | disposition home or self-care (01) | LOC: LAB.S 08:00 | PROVIDERS: ATTEND Physician Assistant | DX: N39.0 Urinary tract infection, site not specified (principal); R30.0 Dysuria | CPT/HCPCS: 87077; 87086; 87181 ==

== ENCOUNTER 2021-04-15 08:00 | Outpatient (CLI) | payer MEDICARE, MEDICAID | END 2021-04-15 23:59 | disposition home or self-care (01) | LOC: LAB.S 08:00 | PROVIDERS: ATTEND Physician Assistant | DX: R30.0 Dysuria (principal); N39.0 Urinary tract infection, site not specified | CPT/HCPCS: 87086 ==

== ENCOUNTER 2021-11-11 14:23 | Outpatient (CLI) | payer MEDICARE, MEDICAID ==
--- NOTE | 2021-11-11 15:25 | XRAY Report ---
PROCEDURE: Shoulder 3 View RT INDICATIONS: SHOULDER JOINT PAIN, RIGHT TECHNIQUE: Views of the right shoulderwere acquired. COMPARISON: None. FINDINGS: Bones: No fractures or dislocations. No suspicious bony lesions. The right acromioclavicular join t has degenerative changes. Soft tissues: No suspicious soft tissue calcifications. IMPRESSION: 1. No acute abnormality of the right shoulder. 2. Degenerative changes of the right acromioclavicular joint. Reviewed by: Piter Macdonald on 11/11/2021 2:24 PM [facility] Approved by: Piter Macdonald on 11/11/2021 2:24 PM [facility] Station ID: [id number]
== END 2021-11-11 14:24 | disposition home or self-care (01) ==
LOC: DI 14:23
PROVIDERS: ATTEND Internal Medicine
DX: M25.511 Pain in right shoulder (principal); M19.011 Primary osteoarthritis, right shoulder

== ENCOUNTER 2021-12-04 14:59 | Outpatient (CLI) | payer MEDICARE, MEDICAID ==
--- NOTE | 2021-12-04 18:27 | XRAY Report ---
PROCEDURE: Shoulder 2 View RT INDICATIONS: RIGHT SHOULDER PAIN TECHNIQUE: 2 views of the shoulder were acquired. COMPARISON: November 11, 2021. FINDINGS: BONES: No acute, displaced fracture. Moderate arthrosis with joint space narrowing of the AC joint. Osteophytosis of the inferior glenoid. SOFT TISSUES: No focal abnormality or appreciable pneumothorax. IMPRESSION: 1.No acute osseous abnormality. Reviewed by: Abe Alex MD on 12/04/2021 6:26 PM PST Approved by: Abe Alex MD on 12/04/2021 6:26 PM PST Station ID: [id number]
== END 2021-12-04 15:00 | disposition home or self-care (01) ==
LOC: DI.WOS 14:59
PROVIDERS: ATTEND Physician Assistant
DX: M75.01 Adhesive capsulitis of right shoulder (principal); M19.011 Primary osteoarthritis, right shoulder

== ENCOUNTER 2022-01-28 16:09 | Emergency (ER) | payer MEDICARE ==
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
[2022-01-28] MEDS ORDERED: IOVERSOL 320 100 ML VIAL IVP ONE ×2 (16:42→17:16)
[2022-01-28 16:43] LABS: BASOPHILS % (AUTO) 0.4 %; EOSINOPHILS # (AUTO) 0.1 10^3/uL (0.0-0.7); EOSINOPHILS % (AUTO) 1.1 %; HCT - HEMATOCRIT 38.4 % (37.0-47.0); HGB - HEMOGLOBIN 12.6 g/dL (12.0-16.0); LYMPHOCYTES # (AUTO) 1.4 10^3/uL (1.5-3.5); MEAN CORPUSCULAR HEMOGLOBIN 31.6 pg (27.0-31.0); MEAN CORPUSCULAR HGB CONC 32.8 g/dL (32.0-36.0); MEAN CORPUSCULAR VOLUME 96.2 fL (81.0-99.0); MEAN PLATELET VOLUME 10.3 fL (7.9-10.8); MONOCYTES # (AUTO) 0.4 10^3/uL (0.0-1.0); MONOCYTES % (AUTO) 7.6 %; NEUTROPHILS # (AUTO) 3.5 10^3/uL (1.5-6.6); NEUTROPHILS % (AUTO) 64.7 %; PLT - PLATELET COUNT 256 10^3/uL (130-450); RED BLOOD COUNT 3.99 10^6/uL (4.20-5.40); RED CELL DISTRIBUTION WIDTH 11.7 % (12.0-15.0); WHITE BLOOD COUNT 5.4 x10^3/uL (4.8-10.8)
[2022-01-28 16:54] LABS: MUDS CUTOFF CONCENTRATIONS CUTOFF CONC BELOW:
[2022-01-28 16:54] LABS: ALBUMIN 4.1 g/dL (3.2-5.5); ALBUMIN/GLOBULIN RATIO 1.5 (1.0-2.2); BILIRUBIN,TOTAL 0.8 mg/dL (0.2-1.0); CALCIUM 8.9 mg/dL (8.5-10.3); CREATININE 0.8 mg/dL (0.4-1.0); POTASSIUM 3.7 mmol/L (3.5-5.0); TOTAL PROTEIN 6.9 g/dL (6.7-8.2)
[2022-01-28 16:56] LABS: BILIRUBIN,URINE NEGATIVE (NEGATIVE); GLUCOSE, URINE (UA) NEGATIVE (NEGATIVE); KETONES,URINE (UA) NEGATIVE (NEGATIVE); LEUKOCYTE ESTERASE, URINE NEGATIVE (NEGATIVE); NITRITE,URINE NEGATIVE (NEGATIVE); OCCULT BLOOD,URINE NEGATIVE (NEGATIVE); PH,URINE 6.5 PH (5.0-7.5); PROTEIN,URINE NEGATIVE (NEGATIVE); UROBILINOGEN,URINE 0.2 (NORMAL) E.U./dL (NORMAL)
[2022-01-28 17:03] LABS: CLARITY,URINE CLEAR (CLEAR)
[2022-01-28 17:07] LABS: AMPHETAMINE SCREEN,URINE POSITIVE (NEGATIVE); BARBITURATE SCREEN,UR NEGATIVE (NEGATIVE); BENZODIAZEPINES SCREEN, URINE NEGATIVE (NEGATIVE); COCAINE SCREEN URINE NEGATIVE (NEGATIVE); METHADONE SCREEN, URINE NEGATIVE (NEGATIVE); METHAMPHETAMINES SCREEN, URINE POSITIVE (NEGATIVE); OPIATE SCREEN, URINE POSITIVE (NEGATIVE); OXYCODONE SCREEN, URINE NEGATIVE (NEGATIVE); PROPOXYPHENE SCREEN, URINE NEGATIVE (NEGATIVE); THC CANNABINOID SCREEN, URINE POSITIVE (NEGATIVE); TRICYCLIC ANTIDEPRESSANT,URINE NEGATIVE (NEGATIVE)
--- NOTE | 2022-01-28 18:11 | CT Report ---
PROCEDURE: Abdomen/Pelvis W INDICATIONS: IV only, abd pain CONTRAST: IV CONTRAST: Optiray 320 ml: 100 PO CONTRAST: *NO PO CONTRAST TECHNIQUE: After the administration of intravenous contrast, 5 mm thick sections acquired from the diaphragms to the symphysis. 5 mm thick coronal and sagittal reformats were acquired. For radiation dose reducti on, the following was used: automated exposure control, adjustment of mA and/or kV according to chante ent size. COMPARISON: 06/29/2017 FINDINGS: Image quality: Excellent. ABDOMEN: Lung bases: Lung bases are clear. Heart size is normal. Bilateral mammoplasties. Solid organs: Liver and spleen are normal in size and enhancement. Gallbladder is unremarkable. Bi liary system is non dilated. Pancreas enhances normally. No adrenal nodules. Kidneys demonstrate n ormal size and enhancement, without hydronephrosis. Peritoneum and bowel: Bowel loops demonstrate normal wall thickness and caliber. Large fecal load. M ild sigmoid diverticulosis without evidence of diverticulitis. No free fluid or air. Nodes and vessels: No retroperitoneal or mesenteric adenopathy by size criteria. Aorta and inferior vena cava are normal in size. Miscellaneous: No ventral hernias. PELVIS: Genitourinary: Bladder wall thickness is normal. Miscellaneous: No inguinal hernias or adenopathy. Bones: No suspicious bony lesions. No vertebral body compression fractures. Lumbar degenerative adela nge. Canal stenosis at L4-L5. IMPRESSION: 1. Constipation. 2. Mild sigmoid diverticulosis. 3. Incidental note made of canal stenosis at L4-L5. Reviewed by: Wili Dennis MD on 01/28/2022 5:09 PM [place] Approved by: Wili Dennis MD on 01/28/2022 5:09 PM [place] Station ID: [id number]
[2022-01-28] MEDS ORDERED: MAGNESIUM CITRATE 296 ML BOTTLE PO STA (18:18)
[2022-01-28] MEDS ORDERED: NALOXONE HCL NASAL SPRAY KIT NAS STA (18:18)
--- NOTE | 2022-01-28 18:28 | Ultrasound Report ---
PROCEDURE: Abdomen Limited INDICATIONS: RUQ pain TECHNIQUE: Real-time focused scanning was performed of the right upper quadrant, with image documentation. COMPARISON: CT abdomen pelvis 01/28/2022, ultrasound abdomen 02/27/2019 FINDINGS: The liver is normal in size with mildly increased echogenicity and coarse sonographic echotexture sug gestive of fatty infiltration. The gallbladder demonstrates no gallstones, wall thickening, or pericholecystic fluid. No intrahepatic biliary ductal dilatation. The extrahepatic duct is at upper limits of normal, measur ing up to 0.7 cm. The visualized pancreas appears unremarkable sonographically. The right kidney measures up to 8.8 cm. No hydronephrosis. IMPRESSION: 1. Increased hepatic echogenicity and coarse echotexture suggestive of steatosis. 2. No evidence of cholelithiasis or cholecystitis. 3. Common bile duct caliber at the upper limits of normal. Recommend correlation with laboratory valu es. Reviewed by: Michael Gomez MD on 01/28/2022 6:27 PM PST Approved by: Michael Gomez MD on 01/28/2022 6:27 PM PST Station ID: [id number]
[2022-01-28 18:30] VITALS: BP 150/71
== END 2022-01-28 18:40 | disposition home or self-care (01) ==
LOC: ED 16:09
DX: F15.10 Other stimulant abuse, uncomplicated (principal); F11.10 Opioid abuse, uncomplicated; K59.01 Slow transit constipation
CPT/HCPCS: 36415; 74177; 76705; 80053; 80306; 81003; 83690; 85025; 99284; A9270; G2215; Q9967; 81001; 87086

== ENCOUNTER 2022-03-16 08:44 | Outpatient (CLI) | payer MEDICARE ==
[2022-03-16] MEDS ORDERED: IOTHALAMATE MEGLUMINE 50 ML VIAL ONE (09:24)
[2022-03-16] MEDS ORDERED: ROPIVACAINE 0.5% PF 30 ML VIAL ONE (09:24)
[2022-03-16] MEDS ORDERED: LIDOCAINE-MPF 1% 10 ML AMP ONE (09:25)
[2022-03-16] MEDS ORDERED: TRIAMCINOLONE 40 MG/ML VIAL ONE (09:25)
[2022-03-16] MEDS ORDERED: TRIAMCINOLONE 40 MG/ML VIAL IM ONE (10:09)
[2022-03-16] MEDS ORDERED: ROPIVACAINE 0.5% PF 30 ML VIAL EPI ONE (10:10)
[2022-03-16] MEDS ORDERED: IOTHALAMATE MEGLUMINE 50 ML VIAL IVP ONE (10:11)
[2022-03-16] MEDS ORDERED: LIDOCAINE-MPF 1% 10 ML AMP IM ONE (10:14)
--- NOTE | 2022-03-16 11:50 | XRAY Report ---
PROCEDURE: Inj/Aspiration Major Joint INDICATIONS: FROZEN RIGHT SHOULDER CONTRAST: CONTRAST: conray FLUORO DOSAGE: 66.4 uGym2 FLUORO TIME: FLUORO TIME: 0.3 min and NUMBER IMAGES: 2 TECHNIQUE: The indications, alternatives, benefits, risks, and complications of the procedure were explained to the patient. Written informed consent was obtained and placed in the chart. The patient was placed in an appropriate position on the fluoroscopy table, and a site was chosen for percutaneous access un alfa fluoroscopic guidance. Local anesthetic was administered using a 1% lidocaine solution. A hypod ermic or spinal needle was then used to access the symptomatic joint. Intra-articular location of th e needle tip was confirmed by injecting a small amount of contrast, followed by steroid administratio n. The needle was then withdrawn, and a bandage applied to the puncture site. FINDINGS: Joint injected: Right shoulder Medications injected: 1 mL of 40 mg/mL Kenalog and 4 0.5% Ropivacaine mixture. Complications: None. Pain prior to injection: 9 Pain post injection: 2 IMPRESSION: Successful fluoroscopically guided administration of steroid and anaesthetic solution into the right shoulder joint. Reviewed by: Grace Jimenez MD on 03/16/2022 11:49 AM PDT Approved by: Grace Jimenez MD on 03/16/2022 11:49 AM PDT Station ID: [id number]
== END 2022-03-16 08:45 | disposition home or self-care (01) ==
LOC: DI 08:44
PROVIDERS: ATTEND Physician Assistant
DX: M75.01 Adhesive capsulitis of right shoulder (principal)
CPT/HCPCS: 20610; 77002; Q9961

== ENCOUNTER 2022-08-24 13:28 | Outpatient (CLI) | payer MEDICARE, MEDICAID ==
[2022-08-24 13:42] LABS: BASOPHILS % (AUTO) 0.5 %; EOSINOPHILS # (AUTO) 0.2 10^3/uL (0.0-0.7); EOSINOPHILS % (AUTO) 3.4 %; HCT - HEMATOCRIT 37.9 % (37.0-47.0); HGB - HEMOGLOBIN 12.8 g/dL (12.0-16.0); LYMPHOCYTES # (AUTO) 2.1 10^3/uL (1.5-3.5); MEAN CORPUSCULAR HEMOGLOBIN 31.5 pg (27.0-31.0); MEAN CORPUSCULAR HGB CONC 33.8 g/dL (32.0-36.0); MEAN CORPUSCULAR VOLUME 93.3 fL (81.0-99.0); MEAN PLATELET VOLUME 10.3 fL (7.9-10.8); MONOCYTES # (AUTO) 0.5 10^3/uL (0.0-1.0); MONOCYTES % (AUTO) 9.2 %; NEUTROPHILS # (AUTO) 2.8 10^3/uL (1.5-6.6); NEUTROPHILS % (AUTO) 49.7 %; PLT - PLATELET COUNT 375 10^3/uL (130-450); RED BLOOD COUNT 4.06 10^6/uL (4.20-5.40); RED CELL DISTRIBUTION WIDTH 11.9 % (12.0-15.0); WHITE BLOOD COUNT 5.7 x10^3/uL (4.8-10.8)
[2022-08-24 14:12] LABS: ALBUMIN 4.4 g/dL (3.2-5.5); ALBUMIN/GLOBULIN RATIO 1.5 (1.0-2.2); ALKALINE PHOSPHATASE 80 IU/L (42-121); ALT ALANINE AMINOTRANSFERASE 20 IU/L (10-60); AST ASPARTATE AMINOTRANSFERASE 22 IU/L (10-42); BILIRUBIN,TOTAL 0.3 mg/dL (0.2-1.0); BUN - BLOOD UREA NITROGEN 23 mg/dL (6-20); CALCIUM 9.6 mg/dL (8.5-10.3); CARBON DIOXIDE - CO2 32 mmol/L (21-32); CHLORIDE 100 mmol/L (101-111); CHOL/HDL RATIO 3.5 (<4.4); CHOLESTEROL 221 mg/dL; CREATININE 0.8 mg/dL (0.4-1.0); GFR - MDRD 72 (>89); GLUCOSE 96 mg/dL (70-100); HDL CHOLESTEROL 64 mg/dL; LDL CHOLESTEROL,CALCULATED 136 mg/dL; LDL/HDL RATIO 2.1 (<4.4); SODIUM 142 mmol/L (135-145); TOTAL PROTEIN 7.4 g/dL (6.7-8.2); TRIGLYCERIDES 103 mg/dL; VLDL CHOLESTEROL 21 mg/dL
[2022-08-24 14:18] LABS: THYROID STIMULATING HORMONE 3.06 uIU/mL (0.34-5.60)
[2022-08-25 00:01] LABS: NEISSERIA GONORRHOEAE DNA NEGATIVE (NEGATIVE); TRICHOMONAS VAGINALIS DNA NEGATIVE (NEGATIVE)
[2022-08-25 00:22] LABS: CHLAMYDIA TRACHOMATIS DNA POSITIVE (NEGATIVE)
== END 2022-08-24 13:29 | disposition home or self-care (01) ==
LOC: LAB 13:28
PROVIDERS: ATTEND Registered Nurse
DX: Z79.899 Other long term (current) drug therapy (principal); Z13.220 Encounter for screening for lipoid disorders; Z13.29 Encounter for screening for other suspected endocrine disorder; Z72.51 High risk heterosexual behavior
CPT/HCPCS: 36415; 80053; 80061; 83721; 84443; 85025; 87491; 87591; 87661

== ENCOUNTER 2022-09-11 15:45 | Outpatient (CLI) | payer MEDICARE, MEDICAID ==
[2022-09-13 07:10] LABS: RPR Non Reactive (Non Reactive)
[2022-09-14 00:07] LABS: HIV SCREEN 4TH GENERATION Non Reactive (Non Reactive)
== END 2022-09-11 15:46 | disposition home or self-care (01) ==
LOC: LAB 15:45
PROVIDERS: ATTEND Registered Nurse
DX: Z72.51 High risk heterosexual behavior (principal)
CPT/HCPCS: 36415; 86592; G0475; 87389

== ENCOUNTER 2022-09-18 08:00 | Outpatient (CLI) | payer MEDICARE, MEDICAID ==
--- NOTE | 2022-09-18 16:11 | XRAY Report ---
PROCEDURE: Shoulder 3 View RT INDICATIONS: RIGHT SHOULDER PAIN TECHNIQUE: 3 views of the shoulder were acquired. COMPARISON: None. FINDINGS: Bones: No fractures or dislocations. No suspicious bony lesions. Visualized ribs appear intact. M oderate to severe acromioclavicular as well as glenohumeral degenerative narrowing. Soft tissues: No suspicious soft tissue calcifications. IMPRESSION: Glenohumeral and acromioclavicular degenerative narrowing. Reviewed by: Khushbu Cruz MD on 09/18/2022 4:10 PM PDT Approved by: Khushbu Cruz MD on 09/18/2022 4:10 PM PDT Station ID: [id number]
== END 2022-09-18 23:59 | disposition home or self-care (01) ==
LOC: DI.WOS 08:00
PROVIDERS: ATTEND Physician Assistant Surgical
DX: M19.011 Primary osteoarthritis, right shoulder (principal)

== ENCOUNTER 2022-10-04 13:40 | Outpatient (CLI) | payer MEDICARE, MEDICAID ==
[2022-10-04] MEDS ORDERED: lidocaine 1% 20 ML MDV ONE (13:48)
[2022-10-04] MEDS ORDERED: TRIAMCINOLONE 40 MG/ML VIAL ONE (13:49)
[2022-10-04] MEDS ORDERED: iohexoL-240 10 ML VIAL IVP ONE ×2 (13:49→14:37)
[2022-10-04] MEDS ORDERED: lidocaine 1% 20 ML MDV SUBQ ONE (14:36)
[2022-10-04] MEDS ORDERED: TRIAMCINOLONE 40 MG/ML VIAL IM ONE (14:37)
--- NOTE | 2022-10-05 08:48 | XRAY Report ---
PROCEDURE: Inj/Aspiration Major Joint INDICATIONS: DJD RIGHT SHOULDER CONTRAST: 3 cc Isovue 240 FLUORO DOSAGE: 12.9 mGy FLUORO TIME: 0.7 TECHNIQUE: The indications, alternatives, benefits, risks, and complications of the procedure were explained to the patient. Written informed consent was obtained and placed in the chart. The patient was placed in an appropriate position on the fluoroscopy table, and a site was chosen for percutaneous access un alfa fluoroscopic guidance. Local anesthetic was administered using a 1% lidocaine solution. A hypod ermic or spinal needle was then used to access the symptomatic joint. Intra-articular location of th e needle tip was confirmed by injecting a small amount of contrast, followed by steroid administratio n. The needle was then withdrawn, and a bandage applied to the puncture site. FINDINGS: Joint injected: Right shoulder Medications injected: 1 cc mL of 40 mg/mL Kenalog and 5 cc 1% lidocaine mixture. Complications: None. IMPRESSION: Successful fluoroscopically guided administration of steroid and anaesthetic solution into the right glenohumeral joint. Reviewed by: Luis Hazel MD on 10/05/2022 8:47 AM PST Approved by: Luis Hazel MD on 10/05/2022 8:47 AM PST Station ID: [id number]
== END 2022-10-04 13:41 | disposition home or self-care (01) ==
LOC: DI 13:40
PROVIDERS: ATTEND Physician Assistant Surgical
DX: M19.011 Primary osteoarthritis, right shoulder (principal)
CPT/HCPCS: 20610; 77002; Q9966

== ENCOUNTER 2023-01-23 16:38 | Emergency (ER) | payer MEDICARE, MEDICAID ==
--- OUTSIDE RECORDS SUMMARY | 2023-01-23 17:26 | EXTERNAL MEDICAL SUMMARY RPT | Continuity of Care Document ---
:1955 Author Organization [place] Address [address] [place] [address] Phone Care Team Providers Name Role Phone Sydni Saturnino Velazquezson Unavailable Unavailable Allergies No information. Encounters No information. Functional Status No information. Immunizations No information. Medications No information. Problems date description facility 2022-12-20 00:00 Malignant neoplasm of breast [facility] & (female), unspecified [facility] [place] 2022-12-20 00:00 Menopause present [facility] 2022-12-20 00:00 Other, mixed, or unspecified drug [facility] & abuse, unspecified use [facility] Service [facility] [place] 2022-12-20 00:00 Depressive disorder, not elsewhere [facility] & classified [facility] 2022-12-20 00:00 Depressive disorder [facility] Care & [facility] Services [facility] 2022-12-20 00:00 Intervertebral disc disorder [facility] & [facility] 2022-12-20 00:00 Low blood pressure [facility] 2022-12-20 00:00 Opioid abuse [facility] 2022-12-20 00:00 Symptomatic menopausal or female [facility] & climacteric states [facility] 2022-12-20 00:00 Osteoporosis [facility] & [facility] 2022-12-20 00:00 Other and unspecified disc disorder [facility] & of unspecified region [facility] [place] 2022-12-20 00:00 Osteoporosis, unspecified [facility] 2022-12-20 00:00 Primary malignant neoplasm of [facility] & female breast [facility] 2022-12-20 00:00 Malignant neoplasm of unspecified [facility] & site of left female breast Anc[facility] Ser v[facility] [place] 2022-12-20 00:00 Opioid abuse, uncomplicated [facility] & [facility] [place] 2022-12-20 00:00 Major depressive disorder, single [facility] & episode, unspecified [facility] [place] 2022-12-20 00:00 Hypotension, unspecified [facility] & [facility] 2022-12-20 00:00 Unspecified thoracic, thoracolumbar [facility] & and lumbosacral intervertebral disc Anci ll[facility] [place] disorder 2022-12-20 00:00 Age-related osteoporosis without [facility] & current pathological fracture [facility] [place] 2022-12-20 00:00 Asymptomatic menopausal state [facility] & [facility] Procedures No information. Results/Labs No information. Social History No information. Vital Signs No information.
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
[2023-01-23] MEDS: ACETAMINOPHEN 325 MG TABLET PO STA (18:59)
[2023-01-23] MEDS: HYDROmorphone 0.5 MG/0.5 ML SYRINGE IVP STA (19:00)
[2023-01-23] MEDS: KETOROLAC 15 MG/ML VIAL IVP STA (19:00)
[2023-01-23 19:15] VITALS: BP 150/69
[2023-01-23] MEDS: HYDROcod/ACET 5/325 Prepack 4 PO STA (19:15)
== END 2023-01-23 19:27 | disposition home or self-care (01) ==
LOC: EDUNIT# → ED 16:38
DX: S39.012A Strain of muscle, fascia and tendon of lower back, initial encounter (principal); S16.1XXA Strain of muscle, fascia and tendon at neck level, initial encounter; S00.83XA Contusion of other part of head, initial encounter; V43.62XA Car passenger injured in collision with other type car in traffic accident, initial encounter
CPT/HCPCS: 36415; 70450; 70486; 72125; 72131; 96374; 99284; A9270; J1170

== ENCOUNTER 2023-02-06 10:56 | Outpatient (CLI) | payer MEDICARE, MEDICAID | END 2023-02-06 10:57 | disposition critical access hospital (66) | LOC: EMS 10:56 | DX: R47.81 Slurred speech (principal); R41.89 Other symptoms and signs involving cognitive functions and awareness; R27.9 Unspecified lack of coordination; R26.2 Difficulty in walking, not elsewhere classified; R00.0 Tachycardia, unspecified | CPT/HCPCS: A0425; A0429 ==

== ENCOUNTER 2023-02-06 11:13 | Inpatient (IN) | payer MEDICARE, MEDICAID ==
[2023-02-06] MEDS ORDERED: SODIUM CHLORIDE 0.9% 1,000 ML IV STA ×2 (11:24→14:03)
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
[2023-02-06 11:36] LABS: BASOPHILS % (AUTO) 0.4 %; HCT - HEMATOCRIT 41.5 % (37.0-47.0); HGB - HEMOGLOBIN 13.7 g/dL (12.0-16.0); LYMPHOCYTES % (AUTO) 1.8 %; MEAN CORPUSCULAR HEMOGLOBIN 30.9 pg (27.0-31.0); MEAN CORPUSCULAR VOLUME 93.7 fL (81.0-99.0); MEAN PLATELET VOLUME 10.4 fL (7.9-10.8); MONOCYTES % (AUTO) 2.7 %; NEUTROPHILS % (AUTO) 94.6 %; PLT - PLATELET COUNT 313 10^3/uL (130-450); RED BLOOD COUNT 4.43 10^6/uL (4.20-5.40); WHITE BLOOD COUNT 22.2 x10^3/uL (4.8-10.8)
[2023-02-06 11:37] LABS: SLIDE REVIEW? Indicated
[2023-02-06 11:46] LABS: ALBUMIN 4.2 g/dL (3.2-5.5); ALBUMIN/GLOBULIN RATIO 1.2 (1.0-2.2); ALKALINE PHOSPHATASE 72 IU/L (42-121); ALT ALANINE AMINOTRANSFERASE 21 IU/L (10-60); AST ASPARTATE AMINOTRANSFERASE 35 IU/L (10-42); BILIRUBIN,TOTAL 0.7 mg/dL (0.2-1.0); BUN - BLOOD UREA NITROGEN 18 mg/dL (6-20); CALCIUM 9.2 mg/dL (8.5-10.3); CARBON DIOXIDE - CO2 25 mmol/L (21-32); CHLORIDE 98 mmol/L (101-111); CREATININE 0.9 mg/dL (0.4-1.0); ETOH - ETHANOL < 5.0 mg/dL; GFR - MDRD 62 (>89); GLUCOSE 177 mg/dL (70-100); LIPASE 34 U/L (22-51); POTASSIUM 2.9 mmol/L (3.5-5.0); SODIUM 137 mmol/L (135-145); TOTAL PROTEIN 7.7 g/dL (6.7-8.2)
[2023-02-06 11:51] LABS: ABNORMAL LYMPHS % (MANUAL) 0 %; LYMPHOCYTES % (MANUAL) 0 %
[2023-02-06 11:54] LABS: BAND NEUTROPHILS % (MANUAL) 24 %; METAMYELOCYTES % (MANUAL) 7 %; MONOCYTES # (MANUAL) 1.1 10^3/uL (0.0-1.0); NEUTROPHILS # (MANUAL) 19.5 10^3/uL (1.5-6.6)
[2023-02-06 11:55] LABS: DIFFERENTIAL COMMENT MANUAL DIFFERENTIAL
[2023-02-06 11:57] LABS: MUDS CUTOFF CONCENTRATIONS CUTOFF CONC BELOW:
[2023-02-06 12:01] LABS: BILIRUBIN,URINE NEGATIVE (NEGATIVE); GLUCOSE, URINE (UA) NEGATIVE (NEGATIVE); KETONES,URINE (UA) NEGATIVE (NEGATIVE); LEUKOCYTE ESTERASE, URINE NEGATIVE (NEGATIVE); NITRITE,URINE NEGATIVE (NEGATIVE); OCCULT BLOOD,URINE TRACE-INTA (NEGATIVE); PH,URINE 7.5 PH (5.0-7.5); PROTEIN,URINE NEGATIVE (NEGATIVE); UROBILINOGEN,URINE 0.2 (NORMAL) E.U./dL (NORMAL)
[2023-02-06 12:06] LABS: CLARITY,URINE CLEAR (CLEAR)
[2023-02-06 12:13] LABS: METHAMPHETAMINES SCREEN, URINE POSITIVE (NEGATIVE); OPIATE SCREEN, URINE POSITIVE (NEGATIVE)
[2023-02-06 12:14] LABS: AMPHETAMINE SCREEN,URINE POSITIVE (NEGATIVE); BARBITURATE SCREEN,UR NEGATIVE (NEGATIVE); BENZODIAZEPINES SCREEN, URINE NEGATIVE (NEGATIVE); COCAINE SCREEN URINE NEGATIVE (NEGATIVE); METHADONE SCREEN, URINE NEGATIVE (NEGATIVE); OXYCODONE SCREEN, URINE NEGATIVE (NEGATIVE); PROPOXYPHENE SCREEN, URINE NEGATIVE (NEGATIVE); THC CANNABINOID SCREEN, URINE NEGATIVE (NEGATIVE); TRICYCLIC ANTIDEPRESSANT,URINE NEGATIVE (NEGATIVE)
--- NOTE | 2023-02-06 12:16 | CT Report ---
PROCEDURE: HEAD WO INDICATIONS: altered LOC, eyes deviated to L TECHNIQUE: Noncontrast 4.5 mm thick angled axial sections acquired from the foramen magnum to the vertex. For r adiation dose reduction, the following was used: automated exposure control, adjustment of mA and/or kV according to patient size. COMPARISON: CT head without, 01/23/2023.. CT maxillofacial bone, 01/23/2023 FINDINGS: Image quality: Motion artifacts at skull base.. CSF spaces: Basal cisterns are patent. No extra-axial fluid collections. Ventricles are normal in size and shape. Brain: No midline shift. No intracranial masses or hemorrhage. Bryson-white matter interface is norm al. Skull and face: Remote fractures are noted with internal fixation and facial bones bilaterally. Calv arium and visualized facial bones are intact, without suspicious lesions. There is a 1.3 cm subcutan eous nodule in the left frontal scalp with partial calcification, unchanged. Sinuses: There is mucosal thickening and near opacification of the right maxillary sinus. Mastoids ar e clear. IMPRESSION: 1. No acute intracranial abnormality. 2. Old facial bone fractures with internal fixation. 3. Right mastoid sinusitis. 4. Limited examination due to motion artifacts. Reviewed by: Yris Mantilla MD on 02/06/2023 11:15 AM SETH Approved by: Yris Mantilla MD on 02/06/2023 11:15 AM MSTITA Station ID: [id number]
--- NOTE | 2023-02-06 12:21 | CT Report ---
PROCEDURE: CERVICAL SPINE WO INDICATIONS: found down/GLF/ALOC TECHNIQUE: Noncontrast 3 mm thick sections acquired from the skull base to the T4 level. Sagittal and coronal r eformats were then constructed. For radiation dose reduction, the following was used: automated exp osure control, adjustment of mA and/or kV according to patient size. COMPARISON: CT cervical spine, 01/23/2023. FINDINGS: Image quality: Excellent. Bones: No fractures or dislocations. Grade 1 anterolisthesis of C4 on C5. Degenerative disc disease is present, [id number] at C5-C6 and C6-C7. Bilateral facet arthropathy, most pronounced and s evere at C2-C3 on the left, C3-C4 bilaterally and C4-C5 on the left. Visualized superior ribs are int act. Soft tissues: Prevertebral soft tissues are normal in thickness. No paravertebral hematomas. No ap ical pneumothoraces. IMPRESSION: 1. No acute cervical spine fractures. 2. Degenerative changes as described. Reviewed by: Yris Mantilla MD on 02/06/2023 11:20 AM SETH Approved by: Yris Mantilla MD on 02/06/2023 11:20 AM AKTITA Station ID: [id number]
[2023-02-06] MEDS ORDERED: LORazepam 2 MG/ML VIAL IVP STA (12:39)
[2023-02-06] MEDS ORDERED: POTASSIUM CHLOR 10 MEQ/100 ML 10 MEQ/100 ML BAG IV STA (13:04)
[2023-02-06] MEDS ORDERED: iohexoL-300 100 ML VIAL IVP ONE (13:14)
--- NOTE | 2023-02-06 13:27 | CT Report ---
PROCEDURE: ANGIO NECK W INDICATIONS: ALOC, eyes deviated L CONTRAST: 80ml Omnipaque 300 TECHNIQUE: After the administration of intravenous contrast, 1.5 mm axial sections acquired from the aortic arch to the [place] of [place]. Coronal 3-D maximum intensity projection (MIP) and/or volume rendering ref ormats were then performed. For radiation dose reduction, the following was used: automated exposur e control, adjustment of mA and/or kV according to patient size. COMPARISON: None. FINDINGS: Image quality: Excellent. Carotid system: The great vessels demonstrate a conventional anatomy as they arise from the aortic a rch. The origins of the common carotid arteries appear patent. The common carotid arteries demonstr ate normal calibers and courses. The bifurcation regions appear normal bilaterally. The internal ca rotid arteries demonstrate normal caliber and course. Posterior circulation: The origins of the vertebral arteries appear patent. The more superior porti ons of the vertebral arteries demonstrate normal course and caliber. They join to form a normal appe aring basilar artery. Soft tissues: Visualized neck soft tissues demonstrate no suspicious abnormalities. The thyroid is normal in size and there are no incidental findings. Bones: No suspicious bony lesions. Visualized cervical spine appears normally aligned. Moderate d egenerative disc disease throughout cervical spine is seen. IMPRESSION: No hemodynamically significant stenosis is seen in bilateral carotid arteries. No hemodynamically significant stenosis or noted in bilateral vertebral arteries. Degenerative disc disease throughout cervical spine most notably at C5-6 and C6-7 levels. The estimate of stenosis included in the report of the imaging study was calculated using the NASCET method CLINICAL RECOMMENDATION STATEMENTS: In patients <35 years with an ITN detected on CT, MRI, or extrathyroidal ultrasound, the Committee re commends further evaluation with dedicated thyroid ultrasound if the nodule is "e1 cm and has no susp icious imaging features, and if the patient has normal life expectancy. In patients "e35 years with an ITN detected on CT, MRI, or extrathyroidal ultrasound, the Committee r ecommends further evaluation with dedicated thyroid ultrasound if the nodule is "e1.5 cm and has no s uspicious imaging features, and if the patient has normal life expectancy. (ACR, 2014) Reviewed by: Jet Monroe MD on 02/06/2023 1:26 PM PDT Approved by: Jet Monroe MD on 02/06/2023 1:26 PM PDT Station ID: [id number]
[2023-02-06] MEDS ORDERED: diazePAM INJ 5 MG/ML SYRINGE IVP STA ×2 (13:29→16:10)
--- NOTE | 2023-02-06 13:29 | CT Report ---
PROCEDURE: ANGIO HEAD W/WO INDICATIONS: ALOC, eyes dev L CONTRAST: 80ml Omnipaque 300 TECHNIQUE: Precontrast 4.5 mm thick angled axial sections acquired from the foramen magnum to the vertex. Afte r the administration of intravenous contrast, 1 mm thick sections acquired through the [place] of [place] is. Postcontrast 4.5 mm thick sections then re-acquired from the foramen magnum to the vertex. 3-di mensional jpaxhss-eyhysustq-acqswyhoif (MIP) and/or volume rendering reformats were acquired of the c entral intracranial vasculature. For radiation dose reduction, the following was used: automated ex posure control, adjustment of mA and/or kV according to patient size. COMPARISON: 02/07/2020 and 2122 FINDINGS: Image quality: Excellent. Anterior circulation: Intracranial internal carotid arteries are normal in size and flow. The flow within the paired anterior cerebral arteries is normal and symmetric. The flow within the middle cer ebral arteries is normal and symmetric. The anterior communicating artery is seen. No aneurysms are seen. Posterior circulation: Visualized portions of the vertebral arteries demonstrate normal caliber, and join to form a normal appearing basilar artery. Flow within the posterior cerebral arteries is norm al and symmetric. No aneurysms are seen. CSF spaces: Ventricles are normal in size and shape. Basal cisterns are patent. No extra-axial flu id collections. Brain: No midline shift. No intracranial bleeds or masses. Bryson-white matter interface appears int act. No area of abnormal intracranial enhancement is seen. Skull and face: No acute skull fracture. Postsurgical changes are again noted in bilateral facial bon e unchanged from prior studies. No acute facial bone fracture. Sinuses: Chronic mucosal thickening in right maxillary sinus is unchanged. IMPRESSION: 1. No hemodynamically significant stenosis or aneurysm is seen in intracranial circulation. 2. No CT evidence of acute intracranial bleed, midline shift or mass effect. No area of abnormal intr acranial enhancement. 3. No acute skull fracture or facial bone fracture. Prior internal fixation of bilateral facial bones with postsurgical changes. Chronic mucosal thickening in right maxillary sinus. Reviewed by: Jet Monroe MD on 02/06/2023 1:28 PM PDT Approved by: Jet Monroe MD on 02/06/2023 1:28 PM PDT Station ID: [id number]
[2023-02-06 13:33] LABS: B. PARAPERTUSSIS- RESP PCR PAN NOT DETECTED; B. PERTUSSIS- RESP PCR PANEL NOT DETECTED; C. PNEUMONIAE- RESP PCR PANEL NOT DETECTED; CORONAVIRUS 229E-RESP PCR NOT DETECTED; CORONAVIRUS HKU1-RESP PCR NOT DETECTED; CORONAVIRUS NL63-RESP PCR NOT DETECTED; CORONAVIRUS OC43-RESP PCR NOT DETECTED; HUMAN METAPNEUMOVIRUS NOT DETECTED; INFLUENZA A- RESP PCR PANEL NOT DETECTED; INFLUENZA B - RESP PCR PANEL NOT DETECTED; M. PNEUMONIAE- RESP PCR PANEL NOT DETECTED; PARAINFLUENZA VIRUS 1 NOT DETECTED; PARAINFLUENZA VIRUS 2 NOT DETECTED; PARAINFLUENZA VIRUS 3 NOT DETECTED; PARAINFLUENZA VIRUS 4 NOT DETECTED; RHINOVIRUS/ENTEROVIRUS NOT DETECTED; RSV- RESP PCR PANEL NOT DETECTED; SARS-CoV-2 -RESP PCR PANEL NOT DETECTED
[2023-02-06] MEDS ORDERED: AMPICILLIN/SULBACTAM 3 GM in SODIUM CHLORIDE 0.9% MINIBAG 100 ML IV STA (14:05)
[2023-02-06] MEDS ORDERED: cefTRIAXone 2 GM in SODIUM CHLORIDE 0.9% MINIBAG 100 ML IV STA (14:05)
[2023-02-06] MEDS ORDERED: VANCOMYCIN INJ 1.25 GM in SODIUM CHLORIDE 0.9% 500 ML IV STA (14:05)
--- OUTSIDE RECORDS SUMMARY | 2023-02-06 14:14 | EXTERNAL MEDICAL SUMMARY RPT | Continuity of Care Document ---
:1955 Author Organization [facility] Address [address] [place] [address] Phone Care Team Providers Name Role Phone Unavailable Unavailable Unavailable Fanta Ramirez Unavailable Unavailable Allergies No information. Encounters No information. Functional Status No information. Immunizations No information. Medications No information. Problems date description facility 2022-12-20 00:00 Malignant neoplasm of breast Walk-In [facility] Primary Care & (female), unspecified Ancillary Services [place] 2022-12-20 00:00 Menopause present [facility] & [facility] 2022-12-20 00:00 Other, mixed, or unspecified drug Walk -In [facility] Primary Care & abuse, unspecified use Ancillary Service [facility] [place] 2022-12-20 00:00 Depressive disorder, not elsewhere [facility] Care & classified Ancillary Services [facility] 2022-12-20 00:00 Depressive disorder Walk[facility]In [facility] Care & Ancillary Services [facility] 2022-12-20 00:00 Intervertebral disc disorder Walk-In [facility] Primary Care & Ancillary Services [facility] 2022-12-20 00:00 Low blood pressure [facility] 2022-12-20 00:00 Opioid abuse [facility] 2022-12-20 00:00 Symptomatic menopausal or female Walk- In Clinic Primary Care & climacteric states Ancillary Services [facility] 2022-12-20 00:00 Osteoporosis [facility] 2022-12-20 00:00 Other and unspecified disc disorder [facility] Primary Care & of unspecified region [facility] [place] 2022-12-20 00:00 Osteoporosis, unspecified Walk-In [facility] Primary Care & Ancillary Services [facility] 2022-12-20 00:00 Primary malignant neoplasm of Walk-In Clinic Primary Care & female breast Ancillary Services [facility] 2022-12-20 00:00 Malignant neoplasm of unspecified Walk [facility]In [facility] Primary Care & site of left female breast Ancillary Ser vices [place] 2022-12-20 00:00 Opioid abuse, uncomplicated Walk-In [facility] Primary Care & [facility] Services [facility] [place] 2022-12-20 00:00 Major depressive disorder, single Walk [facility] Primary Care & episode, unspecified [facility] [place] 2022-12-20 00:00 Hypotension, unspecified [facility] Primary Care & [facility] Services [facility] [place] 2022-12-20 00:00 Unspecified thoracic, thoracolumbar [facility] Primary Care & and lumbosacral intervertebral disc Anci llary Services [facility] 2022-12-20 00:00 Age-related osteoporosis without Walk- In Clinic Primary Care & current pathological fracture [facility] [place] 2022-12-20 00:00 Asymptomatic menopausal state [facility]In [facility] Primary Care & [facility] Services [facility] [place] 2023-02-06 00:00 Malignant neoplasm of breast Walk-In [facility] Primary Care & (female), unspecified [facility] [place] 2023-02-06 00:00 Menopause present [facility] 2023-02-06 00:00 Other, mixed, or unspecified drug Walk [facility] Primary Care & abuse, unspecified use Ancillary Service [facility] [place] 2023-02-06 00:00 Depressive disorder, not elsewhere [facility] Primary Care & classified [facility] Services [facility] [place] 2023-02-06 00:00 Depressive disorder Walk[facility]In [facility] Care & [facility] Services [facility] [place] 2023-02-06 00:00 Intervertebral disc disorder Walk-In [facility] Primary Care & Ancillary Services [facility] 2023-02-06 00:00 Low blood pressure [facility] [place] 2023-02-06 00:00 Opioid abuse [facility] 2023-02-06 00:00 Symptomatic menopausal or female Walk- In Clinic Primary Care & climacteric states Ancillary Services [facility] [place] 2023-02-06 00:00 Osteoporosis [facility] 2023-02-06 00:00 Other and unspecified disc disorder [facility] Primary Care & of unspecified region [facility] [place] 2023-02-06 00:00 Osteoporosis, unspecified [facility] Primary Care & [facility] [place] 2023-02-06 00:00 Primary malignant neoplasm of [facility] Primary Care & female breast [facility] [place] 2023-02-06 00:00 Malignant neoplasm of unspecified [facility] Primary Care & site of left female breast Anc[facility] Ser v[facility] [place] 2023-02-06 00:00 Opioid abuse, uncomplicated [facility] Primary [facility] & [facility] [place] 2023-02-06 00:00 Major depressive disorder, single Walk -In [facility] Primary Care & episode, unspecified [facility] [place] 2023-02-06 00:00 Hypotension, unspecified [facility] & [facility] [place] 2023-02-06 00:00 Unspecified thoracic, thoracolumbar [facility] Primary Care & and lumbosacral intervertebral disc Anci llary Services [place] disorder 2023-02-06 00:00 Age-related osteoporosis without Walk- In Clinic Primary Care & current pathological fracture [facility] [place] 2023-02-06 00:00 Asymptomatic menopausal state [facility]In [facility] Primary Care & [facility] [place] Procedures No information. Results/Labs test date author facility value unit interpret ation Result panel 1 (unknown) (no date) (unknown) Walk-In (no value) (units (unk nown) Clinic Primary unknown) Care & [facility] [place] Result panel 2 (unknown) (no date) (unknown) Walk-In (no value) (units ([facility] nown) Clinic Primary unknown) [facility] [place] Result panel 3 (unknown) (no date) (unknown) Walk-In (no value) (units (unk nown) Clinic Primary unknown) [facility] [place] Result panel 4 (unknown) (no date) (unknown) Walk-In (no value) (units (unk nown) Clinic Primary unknown) [facility] [place] Result panel 5 (unknown) (no date) (unknown) Walk-In (no value) (units (unk nown) Clinic Primary unknown) [facility] [place] Result panel 6 (unknown) (no date) (unknown) Walk-In (no value) (units (unk nown) Clinic Primary unknown) [facility] [place] Result panel 7 (unknown) (no date) (unknown) Walk[facility]In (no value) (units (unk nown) Clinic Primary unknown) [facility] [place] Result panel 8 (unknown) (no date) (unknown) Walk[facility]In (no value) (units (unk nown) Clinic Primary unknown) [facility] [place] Result panel 9 (unknown) (no date) (unknown) Walk-In (no value) (units (unk nown) Clinic Primary unknown) [facility] [place] Result panel 10 (unknown) (no date) (unknown) Walk-In (no value) (units (unk nown) Clinic Primary unknown) [facility] [place] Result panel 11 (unknown) (no date) (unknown) Walk-In (no value) (units (unk nown) Clinic Primary unknown) [facility] [place] Result panel 12 (unknown) (no date) (unknown) Walk-In (no value) (units (unk nown) Clinic Primary unknown) [facility] [place] Result panel 13 (unknown) (no date) (unknown) Walk-In (no value) (units (unk nown) Clinic Primary unknown) [facility] [place] Result panel 14 (unknown) (no date) (unknown) Walk-In (no value) (units (unk nown) Clinic Primary unknown) [facility] [place] Result panel 15 (unknown) (no date) (unknown) Walk-In (no value) (units (unk nown) Clinic Primary unknown) [facility] [place] Result panel 16 (unknown) (no date) (unknown) Walk-In (no value) (units (unk nown) Clinic Primary unknown) [facility] [place] Result panel 17 (unknown) (no date) (unknown) Walk-In (no value) (units (unk nown) Clinic Primary unknown) [facility] [place] Result panel 18 (unknown) (no date) (unknown) Walk-In (no value) (units (unk nown) Clinic Primary unknown) [facility] [place] Result panel 19 (unknown) (no date) (unknown) Walk-In (no value) (units (unk nown) Clinic Primary unknown) [facility] [place] Result panel 20 (unknown) (no date) (unknown) Walk-In (no value) (units (unk nown) Clinic Primary unknown) [facility] [place] Result panel 21 (unknown) (no date) (unknown) Walk-In (no value) (units (unk nown) Clinic Primary unknown) [facility] [place] Result panel 22 (unknown) (no date) (unknown) Walk-In (no value) (units (unk nown) Clinic Primary unknown) [facility] [place] Result panel 23 (unknown) (no date) (unknown) Walk-In (no value) (units (unk nown) Clinic Primary unknown) [facility] [place] Result panel 24 (unknown) (no date) (unknown) Walk-In (no value) (units (unk nown) Clinic Primary unknown) [facility] [place] Result panel 25 (unknown) (no date) (unknown) Walk-In (no value) (units (unk nown) Clinic Primary unknown) [facility] [place] Result panel 26 (unknown) (no date) (unknown) Walk-In (no value) (units (unk nown) Clinic Primary unknown) [facility] [place] Result panel 27 (unknown) (no date) (unknown) Walk-In (no value) (units (unk nown) Clinic Primary unknown) [facility] [place] Result panel 28 (unknown) (no date) (unknown) Walk-In (no value) (units (unk nown) Clinic Primary unknown) [facility] [place] Result panel 29 (unknown) (no date) (unknown) Walk-In (no value) (units (unk nown) Clinic Primary unknown) [facility] [place] Result panel 30 (unknown) (no date) (unknown) Walk-In (no value) (units (unk nown) Clinic Primary unknown) [facility] [place] Result panel 31 (unknown) (no date) (unknown) Walk-In (no value) (units (unk nown) Clinic Primary unknown) [facility] [place] Result panel 32 (unknown) (no date) (unknown) Walk-In (no value) (units (unk nown) Clinic Primary unknown) [facility] [place] Result panel 33 (unknown) (no date) (unknown) Walk-In (no value) (units (unk nown) Clinic Primary unknown) [facility] [place] Result panel 34 (unknown) (no date) (unknown) Walk-In (no value) (units (unk nown) Clinic Primary unknown) [facility] [place] Result panel 35 (unknown) (no date) (unknown) Walk-In (no value) (units (unk nown) Clinic Primary unknown) [facility] [place] Result panel 36 (unknown) (no date) (unknown) Walk-In (no value) (units (unk nown) Clinic Primary unknown) [facility] [place] Result panel 37 (unknown) (no date) (unknown) Walk-In (no value) (units (unk nown) Clinic Primary unknown) [facility] [place] Result panel 38 (unknown) (no date) (unknown) Walk-In (no value) (units (unk nown) Clinic Primary unknown) [facility] [place] Result panel 39 (unknown) (no date) (unknown) Walk-In (no value) (units (unk nown) Clinic Primary unknown) [facility] [place] Result panel 40 (unknown) (no date) (unknown) Walk-In (no value) (units (unk nown) Clinic Primary unknown) [facility] [place] Result panel 41 (unknown) (no date) (unknown) Walk-In (no value) (units (unk nown) Clinic Primary unknown) [facility] [place] Result panel 42 (unknown) (no date) (unknown) Walk-In (no value) (units (unk nown) Clinic Primary unknown) [facility] [place] Result panel 43 (unknown) (no date) (unknown) Walk-In (no value) (units (unk nown) Clinic Primary unknown) [facility] [place] Result panel 44 (unknown) (no date) (unknown) Walk-In (no value) (units (unk nown) Clinic Primary unknown) [facility] [place] Result panel 45 (unknown) (no date) (unknown) Walk-In (no value) (units (unk nown) Clinic Primary unknown) [facility] [place] Result panel 46 (unknown) (no date) (unknown) Walk-In (no value) (units (unk nown) Clinic Primary unknown) [facility] [place] Result panel 47 (unknown) (no date) (unknown) Walk-In (no value) (units (unk nown) Clinic Primary unknown) [facility] [place] Result panel 48 (unknown) (no date) (unknown) Walk-In (no value) (units (unk nown) Clinic Primary unknown) [facility] Result panel 49 (unknown) (no date) (unknown) Walk-In (no value) (units (unk nown) Clinic Primary unknown) [facility] Result panel 50 (unknown) (no date) (unknown) Walk-In (no value) (units (unk nown) Clinic Primary unknown) [facility] Result panel 51 (unknown) (no date) (unknown) Walk-In (no value) (units (unk nown) Clinic Primary unknown) [facility] Result panel 52 (unknown) (no date) (unknown) Walk-In (no value) (units (unk nown) Clinic Primary unknown) [facility] Result panel 53 (unknown) (no date) (unknown) Walk-In (no value) (units (unk nown) Clinic Primary unknown) [facility] Result panel 54 (unknown) (no date) (unknown) Walk-In (no value) (units (unk nown) Clinic Primary unknown) [facility] Result panel 55 (unknown) (no date) (unknown) Walk-In (no value) (units (unk nown) Clinic Primary unknown) [facility] Result panel 56 (unknown) (no date) (unknown) Walk-In (no value) (units (unk nown) Clinic Primary unknown) [facility] Result panel 57 (unknown) (no date) (unknown) Walk-In (no value) (units (unk nown) Clinic Primary unknown) [facility] Result panel 58 (unknown) (no date) (unknown) Walk-In (no value) (units (unk nown) Clinic Primary unknown) [facility] [place] Result panel 59 (unknown) (no date) (unknown) Walk-In (no value) (units (unk nown) Clinic Primary unknown) [facility] [place] Result panel 60 (unknown) (no date) (unknown) Walk-In (no value) (units (unk nown) Clinic Primary unknown) [facility] Result panel 61 (unknown) (no date) (unknown) Walk-In (no value) (units (unk nown) Clinic Primary unknown) [facility] Result panel 62 (unknown) (no date) (unknown) Walk-In (no value) (units (unk nown) Clinic Primary unknown) [facility] Result panel 63 (unknown) (no date) (unknown) Walk-In (no value) (units (unk nown) Clinic Primary unknown) [facility] Result panel 64 (unknown) (no date) (unknown) Walk-In (no value) (units (unk nown) Clinic Primary unknown) [facility] Result panel 65 (unknown) (no date) (unknown) Walk-In (no value) (units (unk nown) Clinic Primary unknown) [facility] Result panel 66 (unknown) (no date) (unknown) Walk-In (no value) (units (unk nown) Clinic Primary unknown) [facility] Result panel 67 (unknown) (no date) (unknown) Walk-In (no value) (units (unk nown) Clinic Primary unknown) [facility] Result panel 68 (unknown) (no date) (unknown) Walk-In (no value) (units (unk nown) Clinic Primary unknown) [facility] Result panel 69 (unknown) (no date) (unknown) Walk-In (no value) (units (unk nown) Clinic Primary unknown) [facility] Result panel 70 (unknown) (no date) (unknown) Walk-In (no value) (units (unk nown) Clinic Primary unknown) [facility] Result panel 71 (unknown) (no date) (unknown) Walk-In (no value) (units (unk nown) Clinic Primary unknown) [facility] Result panel 72 (unknown) (no date) (unknown) Walk-In (no value) (units (unk nown) Clinic Primary unknown) [facility] Result panel 73 (unknown) (no date) (unknown) Walk-In (no value) (units (unk nown) Clinic Primary unknown) [facility] Result panel 74 (unknown) (no date) (unknown) Walk-In (no value) (units (unk nown) Clinic Primary unknown) [facility] Result panel 75 (unknown) (no date) (unknown) Walk-In (no value) (units (unk nown) Clinic Primary unknown) [facility] Result panel 76 (unknown) (no date) (unknown) Walk-In (no value) (units (unk nown) Clinic Primary unknown) [facility] Result panel 77 (unknown) (no date) (unknown) Walk-In (no value) (units (unk nown) Clinic Primary unknown) [facility] Result panel 78 (unknown) (no date) (unknown) Walk-In (no value) (units (unk nown) Clinic Primary unknown) [facility] Result panel 79 (unknown) (no date) (unknown) Walk-In (no value) (units (unk nown) Clinic Primary unknown) [facility] Result panel 80 (unknown) (no date) (unknown) Walk-In (no value) (units (unk nown) Clinic Primary unknown) [facility] Result panel 81 (unknown) (no date) (unknown) Walk-In (no value) (units (unk nown) Clinic Primary unknown) [facility] Result panel 82 (unknown) (no date) (unknown) Walk-In (no value) (units (unk nown) Clinic Primary unknown) [facility] Result panel 83 (unknown) (no date) (unknown) Walk-In (no value) (units (unk nown) Clinic Primary unknown) [facility] Result panel 84 (unknown) (no date) (unknown) Walk-In (no value) (units (unk nown) Clinic Primary unknown) [facility] Result panel 85 (unknown) (no date) (unknown) Walk-In (no value) (units (unk nown) Clinic Primary unknown) [facility] Result panel 86 (unknown) (no date) (unknown) Walk-In (no value) (units (unk nown) Clinic Primary unknown) [facility] Result panel 87 (unknown) (no date) (unknown) Walk-In (no value) (units (unk nown) Clinic Primary unknown) [facility] Result panel 88 (unknown) (no date) (unknown) Walk-In (no value) (units (unk nown) Clinic Primary unknown) [facility] Result panel 89 (unknown) (no date) (unknown) Walk-In (no value) (units (unk nown) Clinic Primary unknown) [facility] Result panel 90 (unknown) (no date) (unknown) Walk-In (no value) (units (unk nown) Clinic Primary unknown) [facility] Result panel 91 (unknown) (no date) (unknown) Walk-In (no value) (units (unk nown) Clinic Primary unknown) [facility] Result panel 92 (unknown) (no date) (unknown) Walk-In (no value) (units (unk nown) Clinic Primary unknown) [facility] Result panel 93 (unknown) (no date) (unknown) Walk-In (no value) (units (unk nown) Clinic Primary unknown) [facility] Result panel 94 (unknown) (no date) (unknown) Walk-In (no value) (units (unk nown) Clinic Primary unknown) [facility] Result panel 95 (unknown) (no date) (unknown) Walk-In (no value) (units (unk nown) Clinic Primary unknown) [facility] Result panel 96 (unknown) (no date) (unknown) Walk-In (no value) (units (unk nown) Clinic Primary unknown) [facility] Result panel 97 (unknown) (no date) (unknown) Walk-In (no value) (units (unk nown) Clinic Primary unknown) [facility] Result panel 98 (unknown) (no date) (unknown) Walk-In (no value) (units (unk nown) Clinic Primary unknown) [facility] Result panel 99 (unknown) (no date) (unknown) Walk-In (no value) (units (unk nown) Clinic Primary unknown) [facility] Result panel 100 (unknown) (no date) (unknown) Walk-In (no value) (units (unk nown) Clinic Primary unknown) [facility] Result panel 101 (unknown) (no date) (unknown) Walk-In (no value) (units (unk nown) Clinic Primary unknown) [facility] Result panel 102 (unknown) (no date) (unknown) Walk-In (no value) (units (unk nown) Clinic Primary unknown) [facility] Result panel 103 (unknown) (no date) (unknown) Walk-In (no value) (units (unk nown) Clinic Primary unknown) [facility] Result panel 104 (unknown) (no date) (unknown) Walk-In (no value) (units (unk nown) Clinic Primary unknown) [facility] Result panel 105 (unknown) (no date) (unknown) Walk-In (no value) (units (unk nown) Clinic Primary unknown) [facility] Result panel 106 (unknown) (no date) (unknown) Walk-In (no value) (units (unk nown) Clinic Primary unknown) [facility] Result panel 107 (unknown) (no date) (unknown) Walk-In (no value) (units (unk nown) Clinic Primary unknown) [facility] Result panel 108 (unknown) (no date) (unknown) Walk-In (no value) (units (unk nown) Clinic Primary unknown) [facility] Result panel 109 (unknown) (no date) (unknown) Walk-In (no value) (units (unk nown) Clinic Primary unknown) [facility] Result panel 110 (unknown) (no date) (unknown) Walk-In (no value) (units (unk nown) Clinic Primary unknown) [facility] Result panel 111 (unknown) (no date) (unknown) Walk-In (no value) (units (unk nown) Clinic Primary unknown) [facility] Result panel 112 (unknown) (no date) (unknown) Walk-In (no value) (units (unk nown) Clinic Primary unknown) [facility] Result panel 113 (unknown) (no date) (unknown) Walk-In (no value) (units (unk nown) Clinic Primary unknown) [facility] Result panel 114 (unknown) (no date) (unknown) Walk-In (no value) (units (unk nown) Clinic Primary unknown) [facility] Result panel 115 (unknown) (no date) (unknown) Walk-In (no value) (units (unk nown) Clinic Primary unknown) [facility] Result panel 116 (unknown) (no date) (unknown) Walk-In (no value) (units (unk nown) Clinic Primary unknown) [facility] Result panel 117 (unknown) (no date) (unknown) Walk-In (no value) (units (unk nown) Clinic Primary unknown) [facility] Result panel 118 (unknown) (no date) (unknown) Walk-In (no value) (units (unk nown) Clinic Primary unknown) [facility] Result panel 119 (unknown) (no date) (unknown) Walk-In (no value) (units (unk nown) Clinic Primary unknown) [facility] Result panel 120 (unknown) (no date) (unknown) Walk-In (no value) (units (unk nown) Clinic Primary unknown) [facility] Result panel 121 (unknown) (no date) (unknown) Walk-In (no value) (units (unk nown) Clinic Primary unknown) [facility] Result panel 122 (unknown) (no date) (unknown) Walk-In (no value) (units (unk nown) Clinic Primary unknown) [facility] Result panel 123 (unknown) (no date) (unknown) Walk-In (no value) (units (unk nown) Clinic Primary unknown) [facility] Result panel 124 (unknown) (no date) (unknown) Walk-In (no value) (units (unk nown) Clinic Primary unknown) [facility] Result panel 125 (unknown) (no date) (unknown) Walk-In (no value) (units (unk nown) Clinic Primary unknown) [facility] Result panel 126 (unknown) (no date) (unknown) Walk-In (no value) (units (unk nown) Clinic Primary unknown) [facility] Result panel 127 (unknown) (no date) (unknown) Walk-In (no value) (units (unk nown) Clinic Primary unknown) [facility] Result panel 128 (unknown) (no date) (unknown) Walk-In (no value) (units (unk nown) Clinic Primary unknown) [facility] Result panel 129 (unknown) (no date) (unknown) Walk-In (no value) (units (unk nown) Clinic Primary unknown) [facility] Result panel 130 (unknown) (no date) (unknown) Walk-In (no value) (units (unk nown) Clinic Primary unknown) [facility] Result panel 131 (unknown) (no date) (unknown) Walk-In (no value) (units (unk nown) Clinic Primary unknown) [facility] Result panel 132 (unknown) (no date) (unknown) [facility] (no value) [facility] Result panel 133 (unknown) (no date) (unknown) [facility] (no value) [facility] Result panel 134 (unknown) (no date) (unknown) [facility] (no value) [facility] Result panel 135 (unknown) (no date) (unknown) [facility] (no value) [facility] Result panel 136 (unknown) (no date) (unknown) [facility] (no value) [facility] Result panel 137 (unknown) (no date) (unknown) [facility] (no value) [facility] Result panel 138 (unknown) (no date) (unknown) [facility] (no value) [facility] Result panel 139 (unknown) (no date) (unknown) [facility] (no value) [facility] Result panel 140 (unknown) (no date) (unknown) [facility] (no value) [facility] Result panel 141 (unknown) (no date) (unknown) [facility] (no value) [facility] Result panel 142 (unknown) (no date) (unknown) [facility] (no value) [facility] Result panel 143 (unknown) (no date) (unknown) [facility] (no value) [facility] Result panel 144 (unknown) (no date) (unknown) [facility] (no value) [facility] Result panel 145 (unknown) (no date) (unknown) [facility] (no value) [facility] Result panel 146 (unknown) (no date) (unknown) [facility] (no value) [facility] Result panel 147 (unknown) (no date) (unknown) [facility] (no value) [facility] Result panel 148 (unknown) (no date) (unknown) [facility] (no value) [facility] Result panel 149 (unknown) (no date) (unknown) [facility] (no value) [facility] Result panel 150 (unknown) (no date) (unknown) [facility] (no value) [facility] Result panel 151 (unknown) (no date) (unknown) [facility] (no value) [facility] Result panel 152 (unknown) (no date) (unknown) [facility]-In (no value) [facility] Result panel 153 (unknown) (no date) (unknown) [facility] (no value) [facility] Result panel 154 (unknown) (no date) (unknown) [facility] (no value) [facility] Result panel 155 (unknown) (no date) (unknown) [facility] (no value) [facility] Result panel 156 (unknown) (no date) (unknown) [facility] (no value) [facility] Result panel 157 (unknown) (no date) (unknown) [facility] (no value) [facility] Result panel 158 (unknown) (no date) (unknown) [facility] (no value) [facility] Result panel 159 (unknown) (no date) (unknown) [facility] (no value) [facility] Result panel 160 (unknown) (no date) (unknown) [facility] (no value) [facility] Result panel 161 (unknown) (no date) (unknown) [facility]-In (no value) [facility] Result panel 162 (unknown) (no date) (unknown) Walk-[facility] (no value) [facility] Result panel 163 (unknown) (no date) (unknown) [facility] (no value) [facility] Result panel 164 (unknown) (no date) (unknown) Walk-In (no value) [facility] Result panel 165 (unknown) (no date) (unknown) Walk-In (no value) [facility] Result panel 166 (unknown) (no date) (unknown) [facility] (no value) [facility] Result panel 167 (unknown) (no date) (unknown) [facility]-In (no value) [facility] Result panel 168 (unknown) (no date) (unknown) Walk-In (no value) [facility] Result panel 169 (unknown) (no date) (unknown) [facility]-In (no value) [facility] Result panel 170 (unknown) (no date) (unknown) [facility] (no value) [facility] Result panel 171 (unknown) (no date) (unknown) [facility] (no value) [facility] Result panel 172 (unknown) (no date) (unknown) [facility] (no value) [facility] Result panel 173 (unknown) (no date) (unknown) [facility] (no value) [facility] Result panel 174 (unknown) (no date) (unknown) [facility] (no value) [facility] Result panel 175 (unknown) (no date) (unknown) [facility] (no value) [facility] Result panel 176 (unknown) (no date) (unknown) [facility] (no value) [facility] Result panel 177 (unknown) (no date) (unknown) [facility] (no value) [facility] Result panel 178 (unknown) (no date) (unknown) [facility] (no value) [facility] Result panel 179 (unknown) (no date) (unknown) [facility] (no value) [facility] Result panel 180 (unknown) (no date) (unknown) [facility] (no value) [facility] Result panel 181 (unknown) (no date) (unknown) [facility] (no value) [facility] Result panel 182 (unknown) (no date) (unknown) [facility] (no value) [facility] Result panel 183 (unknown) (no date) (unknown) [facility] (no value) [facility] Result panel 184 (unknown) (no date) (unknown) [facility] (no value) [facility] Result panel 185 (unknown) (no date) (unknown) [facility] (no value) [facility] Result panel 186 (unknown) (no date) (unknown) [facility] (no value) [facility] Result panel 187 (unknown) (no date) (unknown) [facility] (no value) [facility] Result panel 188 (unknown) (no date) (unknown) [facility] (no value) [facility] Result panel 189 (unknown) (no date) (unknown) [facility] (no value) [facility] Result panel 190 (unknown) (no date) (unknown) [facility] (no value) [facility] Result panel 191 (unknown) (no date) (unknown) [facility] (no value) [facility] Result panel 192 (unknown) (no date) (unknown) [facility] (no value) [facility] Result panel 193 (unknown) (no date) (unknown) [facility] (no value) [facility] Result panel 194 (unknown) (no date) (unknown) [facility] (no value) [facility] Result panel 195 (unknown) (no date) (unknown) [facility] (no value) [facility] Result panel 196 (unknown) (no date) (unknown) [facility] (no value) [facility] Result panel 197 (unknown) (no date) (unknown) [facility] (no value) [facility] Result panel 198 (unknown) (no date) (unknown) [facility] (no value) [facility] Result panel 199 (unknown) (no date) (unknown) [facility] (no value) [facility] Result panel 200 (unknown) (no date) (unknown) [facility] (no value) [facility] Result panel 201 (unknown) (no date) (unknown) [facility] (no value) [facility] Result panel 202 (unknown) (no date) (unknown) [facility] (no value) [facility] Result panel 203 (unknown) (no date) (unknown) [facility] (no value) [facility] Result panel 204 (unknown) (no date) (unknown) [facility] (no value) [facility] Result panel 205 (unknown) (no date) (unknown) [facility] (no value) [facility] Result panel 206 (unknown) (no date) (unknown) [facility] (no value) [facility] Result panel 207 (unknown) (no date) (unknown) [facility] (no value) [facility] Result panel 208 (unknown) (no date) (unknown) [facility] (no value) [facility] Result panel 209 (unknown) (no date) (unknown) [facility] (no value) [facility] Result panel 210 (unknown) (no date) (unknown) [facility] (no value) [facility] Result panel 211 (unknown) (no date) (unknown) [facility] (no value) [facility] Result panel 212 (unknown) (no date) (unknown) [facility] (no value) [facility] Result panel 213 (unknown) (no date) (unknown) [facility] (no value) [facility] Result panel 214 (unknown) (no date) (unknown) [facility] (no value) [facility] Result panel 215 (unknown) (no date) (unknown) [facility] (no value) [facility] Result panel 216 (unknown) (no date) (unknown) [facility] (no value) [facility] Result panel 217 (unknown) (no date) (unknown) [facility] (no value) [facility] Result panel 218 (unknown) (no date) (unknown) [facility] (no value) [facility] Result panel 219 (unknown) (no date) (unknown) [facility] (no value) [facility] Result panel 220 (unknown) (no date) (unknown) [facility] (no value) [facility] Result panel 221 (unknown) (no date) (unknown) [facility] (no value) [facility] Result panel 222 (unknown) (no date) (unknown) [facility] (no value) [facility] Result panel 223 (unknown) (no date) (unknown) [facility] (no value) [facility] Result panel 224 (unknown) (no date) (unknown) [facility] (no value) [facility] Result panel 225 (unknown) (no date) (unknown) [facility] (no value) [facility] Result panel 226 (unknown) (no date) (unknown) [facility] (no value) [facility] Result panel 227 (unknown) (no date) (unknown) [facility] (no value) [facility] Result panel 228 (unknown) (no date) (unknown) [facility] (no value) [facility] Result panel 229 (unknown) (no date) (unknown) [facility] (no value) [facility] Result panel 230 (unknown) (no date) (unknown) [facility] (no value) [facility] Result panel 231 (unknown) (no date) (unknown) [facility] (no value) [facility] Result panel 232 (unknown) (no date) (unknown) [facility] (no value) [facility] Result panel 233 (unknown) (no date) (unknown) [facility] (no value) [facility] Result panel 234 (unknown) (no date) (unknown) [facility] (no value) [facility] Result panel 235 (unknown) (no date) (unknown) [facility] (no value) [facility] Result panel 236 (unknown) (no date) (unknown) [facility] (no value) [facility] Result panel 237 (unknown) (no date) (unknown) [facility] (no value) [facility] Result panel 238 (unknown) (no date) (unknown) [facility] (no value) [facility] Result panel 239 (unknown) (no date) (unknown) [facility] (no value) [facility] Result panel 240 (unknown) (no date) (unknown) [facility] (no value) [facility] Result panel 241 (unknown) (no date) (unknown) [facility] (no value) [facility] Result panel 242 (unknown) (no date) (unknown) [facility] (no value) [facility] Result panel 243 (unknown) (no date) (unknown) [facility] (no value) [facility] Result panel 244 (unknown) (no date) (unknown) [facility] (no value) [facility] Result panel 245 (unknown) (no date) (unknown) [facility] (no value) [facility] Result panel 246 (unknown) (no date) (unknown) [facility] (no value) [facility] Result panel 247 (unknown) (no date) (unknown) [facility] (no value) [facility] Result panel 248 (unknown) (no date) (unknown) [facility] (no value) [facility] Result panel 249 (unknown) (no date) (unknown) [facility] (no value) [facility] Result panel 250 (unknown) (no date) (unknown) [facility] (no value) [facility] Result panel 251 (unknown) (no date) (unknown) [facility] (no value) [facility] Result panel 252 (unknown) (no date) (unknown) [facility] (no value) [facility] Result panel 253 (unknown) (no date) (unknown) [facility] (no value) [facility] Result panel 254 (unknown) (no date) (unknown) [facility] (no value) [facility] Result panel 255 (unknown) (no date) (unknown) [facility] (no value) [facility] Result panel 256 (unknown) (no date) (unknown) [facility] (no value) [facility] Result panel 257 (unknown) (no date) (unknown) [facility] (no value) [facility] Result panel 258 (unknown) (no date) (unknown) [facility] (no value) [facility] Result panel 259 (unknown) (no date) (unknown) [facility] (no value) [facility] Result panel 260 (unknown) (no date) (unknown) [facility] (no value) [facility] Result panel 261 (unknown) (no date) (unknown) Walk-[facility] (no value) [facility] Result panel 262 (unknown) (no date) (unknown) Walk-[facility] (no value) [facility] Result panel 263 (unknown) (no date) (unknown) [facility] (no value) [facility] Result panel 264 (unknown) (no date) (unknown) [facility] (no value) [facility] Result panel 265 (unknown) (no date) (unknown) Walk-[facility] (no value) [facility] Result panel 266 (unknown) (no date) (unknown) Walk-In (no value) [facility] Result panel 267 (unknown) (no date) (unknown) Walk-[facility] (no value) [facility] Result panel 268 (unknown) (no date) (unknown) Walk-In (no value) [facility] Result panel 269 (unknown) (no date) (unknown) Walk-[facility] (no value) [facility] Result panel 270 (unknown) (no date) (unknown) Walk-In (no value) [facility] Social History No information. Vital Signs No information.
[2023-02-06] MEDS ORDERED: iohexoL-300 100 ML VIAL ONE ×2 (14:17→14:18)
[2023-02-06 14:43] LABS: ABG BASE EXCESS -4.8 mmol/L (-2.0-3.0); ABG HCO3 18.9 mmol/L (22.0-26.0); ABG OXYGEN SATURATION 88 % (94-98); ABG PCO2 32 mmHg (34-45); ABG TCO2 19.9 MMOL/L (21.0-29.0)
[2023-02-06 14:44] LABS: ALLEN TEST POSITIVE
[2023-02-06 14:45] LABS: ABG PO2 52 mmHg (80-100)
[2023-02-06 14:45] LABS: CSF - GLUCOSE < 5 mg/dL (45-70); TOTAL PROTEIN,CSF 912 mg/dL (15-60)
[2023-02-06 14:52] LABS: CLARITY,CSF CLOUDY (CLEAR); COLOR,CSF STRAW (COLORLESS); CSF TUBE # CSF TUBE# 3; CSF XANTHOCHROMIA ABSENT (ABSENT)
[2023-02-06 14:55] LABS: WHITE BLOOD CELL,CSF 8140 /mm^3 (0-5)
[2023-02-06 14:58] LABS: NEUTROPHILS,CSF 100 % (0-6); RED BLOOD CELL,CSF 25 /mm^3 (0-1)
[2023-02-06] MEDS ORDERED: oxyCODONE 5 MG TABLET PO PRN (15:48)
[2023-02-06] MEDS ORDERED: ONDANSETRON 4 MG/2 ML VIAL IVP PRN (15:48)
[2023-02-06] MEDS ORDERED: ONDANSETRON ODT 4 MG TABLET TL PRN (15:48)
[2023-02-06] MEDS ORDERED: SODIUM CHLORIDE FLUSH 0.9% 10 ML SYRINGE IVP PRN (15:48)
[2023-02-06] MEDS ORDERED: ACETAMINOPHEN 325 MG TABLET PO PRN (15:48)
[2023-02-06] MEDS ORDERED: AMPICILLIN 2 GM in SODIUM CHLORIDE 0.9% MINIBAG 100 ML IV SCH (16:00)
[2023-02-06] MEDS ORDERED: DEXAMETHASONE 10 MG/ML VIAL IV STA (16:02)
--- NOTE | 2023-02-06 16:50 | CT Report ---
PROCEDURE: CHEST W INDICATIONS: ALOC, septic, no source CONTRAST:100ml Omnipaque 300 TECHNIQUE: After the administration of intravenous contrast, 1 mm axial images were acquired from the pulmonary apices through the posterior costophrenic angles. Axial 5 mm soft tissue kernel reconstructions were performed as well as 8 mm axial MIP and coronal and sagittal 5 mm reformations. For radiation dose reduction, the following was used: automated exposure control, adjustment of mA and/or kV according to patient size. COMPARISON: Chest x-ray, 02/27/2019. FINDINGS: Image quality: Excellent. Lungs and pleura: There is an irregular nodular airspace density in the posterior segment of the righ t upper lobe. Bibasilar dependent atelectasis. There is pleural thickening and subpleural scars and atelectasis in the anterior aspect of the left upper lobe, presumably secondary to postradiation amaro ge. Small right pleural effusion. No pneumothorax. Mediastinum: Heart size is normal. Mild coronary calcification. No pericardial effusion. No medias tinal or hilar adenopathy by size criteria. Thoracic aorta and central pulmonary arteries are normal in size. Esophagus is normal in caliber. No hiatal hernia. Bones and chest wall: No suspicious bony lesions. No vertebral body compression fractures. No axil henry or supraclavicular adenopathy by size criteria. The thyroid is normal in size and there are no incidental findings.. Abdomen: Please see separate CT abdomen report. IMPRESSION: 1. A nodular airspace density in the posterior segment of the right upper lobe, suspicious for pneumo vaishali. Recommend a follow-up CT to ensure resolution. 2. Small right effusion. 3. Basilar atelectasis. Reviewed by: Yris Mantilla MD on 02/06/2023 3:48 PM [facility] Approved by: Yris Mantilla MD on 02/06/2023 3:48 PM [facility] Station ID: [id number]
--- NOTE | 2023-02-06 16:54 | CT Report ---
PROCEDURE: ABDOMEN/PELVIS W INDICATIONS: ALOC, septic CONTRAST: 100ml Omnipaque 300 TECHNIQUE: After the administration of IV contrast, 5 mm thick sections acquired from the diaphragms to the symp hysis. 5 mm thick coronal and sagittal reformats were acquired. For radiation dose reduction, the f ollowing was used: automated exposure control, adjustment of mA and/or kV according to patient size. COMPARISON: CT abdomen and pelvis, 06/29/2017. FINDINGS: Image quality: Excellent. ABDOMEN: Lung bases: Please see separate CT test report. Solid organs: Liver and spleen are normal in size and enhancement. Gallbladder Biliary system is no n dilated. Pancreas enhances normally. No adrenal nodules. Kidneys demonstrate normal size and enh ancement, without hydronephrosis. Peritoneum and bowel: Bowel loops demonstrate normal wall thickness and caliber. Appendix is normal . There is a large amount of stool throughout colon. No free fluid or air. Nodes and vessels: No retroperitoneal or mesenteric adenopathy by size criteria. Aorta and inferior vena cava are normal in size. Miscellaneous: No ventral hernias. PELVIS: Genitourinary: Bladder is contracted with a Hensley catheter. Miscellaneous: No inguinal hernias or adenopathy. Bones: No suspicious bony lesions. No vertebral body compression fractures. IMPRESSION: 1. No acute inflammatory process in abdomen or pelvis. 2. Large amount of stool in colon. 3. Hensley catheter in bladder. Reviewed by: Yris Mantilla MD on 02/06/2023 3:52 PM [facility] Approved by: Yris Mantilla MD on 02/06/2023 3:52 PM [facility] Station ID: [id number]
--- NOTE | 2023-02-06 17:10 | XRAY Report ---
PROCEDURE: Chest for Line Placement INDICATIONS: line placement TECHNIQUE: One view of the chest was acquired. COMPARISON: CT chest from earlier same day FINDINGS: Surgical changes and devices: Left subclavian central venous catheter has been placed with the dista l tip projecting over the upper SVC. Surgical clips in the left axilla are again noted. Lungs and pleura: Stable extensive diffuse patchy opacities of the bilateral lower lung zones. No pn eumothorax visualized. Mediastinum: Mediastinal contours appear normal. Heart size is normal. Bones and chest wall: No suspicious bony lesions. Overlying soft tissues appear unremarkable. IMPRESSION: Left-sided central venous catheter in place with distal tip projecting over the upper SVC. No pneumot horax. Otherwise, stable cardiopulmonary evaluation. Reviewed by: Antonio Hatch MD on 02/06/2023 4:08 PM SETH Approved by: Antonio Hatch MD on 02/06/2023 4:08 PM SETH Station ID: [id number]
--- NOTE | 2023-02-06 17:14 | PHARMACY PROGRESS NOTE ---
- Therapy Status Vancomycin regimen day #: 1 Therapy status: Awaiting steady state Basis for treatment: Empirical Treatment indication: MENINGITIS Trough goal: 20 Concurrent antibiotics: AMPICILLIN AND CEFTRIAXONE - TIMOTHY Risk Risk level for Acute Kidney Injury: High Acute Kidney Injury risk factors: Goal trough >15, Admission to ICU - Monitoring and Recommendation Clinical response to treatment: I&O Previous 24 hours 02/04/23 02/05/23 02/06/23 23:59 23:59 23:59 Intake Total 2300 Output Total 1500 Balance 800 Lab Results 02/06/23 11:17 BUN 18 Creatinine 0.9 Estimated GFR (MDRD) 62 L Cultures 02/06/23 13:55 Cerebral Spinal Fluid CSF Culture - Preliminary 02/06/23 11:30 Stool Occult Blood - Final Monitoring plan: Daily serum creatinine
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
[2023-02-06] MEDS: SODIUM CHLORIDE FLUSH 0.9% 10 ML SYRINGE IVP SCH (18:37)
[2023-02-06] MEDS: cefTRIAXone 2 GM in SODIUM CHLORIDE 0.9% MINIBAG 100 ML IV SCH (22:41)
[2023-02-06] MEDS: AMPICILLIN 2 GM in SODIUM CHLORIDE 0.9% MINIBAG 100 ML IV SCH (22:41)
[2023-02-07] MEDS: POTASSIUM CHLOR 10 MEQ/100 ML 10 MEQ/100 ML BAG IV SCH ×8 (00:07→08:09)
[2023-02-07] MEDS: SODIUM CHLORIDE FLUSH 0.9% 10 ML SYRINGE IVP SCH ×3 (00:16→17:20)
--- NOTE | 2023-02-07 00:40 | PROVIDER PROGRESS NOTE ---
Tailor Garment Fitter Note - Tailor Garment Fitter Note Tailor Garment Fitter Note: 68F admitted for encephalopathy 2/2 bacterial meningitis. RN called to report patient breathing 50 breaths per min. elevated lactic acid 4.9 down from 5.5. Patient is DNR/DNI but NOT comfort care. She is getting abx. most recent VBG 7. at approx 14:00. HCO3 25 at 11:17. lactic acid 4.9 23:36. given patient's breathing rate at 50 breaths per min, she is likely metabolic acidosis and attempting to respiratory compensate. rate of 50 breaths per min is not sustainable and is considered verge of resp failure in this case. spoke c RN, propellant charge zone assembler, and RT. reiterated that 50 breaths per min is not normal and that if her pH is 7.4 c CO2 only 32 at 50 breaths per min, then patient is not ventilating well and need assistance before her rate slows down and she resp arrests. once her rate slows and she tired out, patient will likely dive into complete acute resp failure pend resp arrest. since she is DNI, will recommend Bipap early to assist c ventilation. getting repeat VBG and BMP. continue abx. neuro checks. transfer to icu if necessary. sitter if necessary. Rufina Watson DO Internal Medicine [employer] Tele Tailor Garment Fitter
[2023-02-07 01:22] LABS: VBG HCO3 19.2 mmol/L (23-28); VBG PH 7.504 (7.31-7.41); VBG PO2 212.4 mmHg (25-47)
[2023-02-07 01:23] LABS: VBG OXYGEN SATURATION 99.3 % (60-80)
[2023-02-07 01:26] LABS: CALCIUM 8.2 mg/dL (8.5-10.3); CREATININE 0.8 mg/dL (0.4-1.0); POTASSIUM 3.1 mmol/L (3.5-5.0)
[2023-02-07 02:54] LABS: VBG BASE EXCESS -2.6 mmol/L (-2 - +2); VBG OXYGEN SATURATION 91.9 % (60-80); VBG PCO2 26.1 mmHg (41-51); VBG PH 7.481 (7.31-7.41); VBG PO2 54.8 mmHg (25-47); VBG TOTAL CO2 19.8 mmol/L (24-29)
[2023-02-07] MEDS ORDERED: SODIUM BICARBONATE 150 MEQ in DEXTROSE 5% 1,000 ML IV SCH (03:00)
[2023-02-07] MEDS ORDERED: SODIUM BICARBONATE 8.4% 50 MEQ/50 ML VIAL ONE (03:11)
[2023-02-07] MEDS ORDERED: DEXTROSE 5% 1,000 ML IV ONE ×2 (03:12→16:58)
[2023-02-07] MEDS: AMPICILLIN 2 GM in SODIUM CHLORIDE 0.9% MINIBAG 100 ML IV SCH ×4 (04:43→17:20)
[2023-02-07 06:12] LABS: HCT - HEMATOCRIT 40.6 % (37.0-47.0); HGB - HEMOGLOBIN 14.2 g/dL (12.0-16.0); LYMPHOCYTES % (AUTO) 1.9 %; MEAN CORPUSCULAR VOLUME 91.4 fL (81.0-99.0); MEAN PLATELET VOLUME 11.2 fL (7.9-10.8); MONOCYTES % (AUTO) 3.8 %; NEUTROPHILS % (AUTO) 87.8 %; PLT - PLATELET COUNT 194 10^3/uL (130-450); RED BLOOD COUNT 4.44 10^6/uL (4.20-5.40); RED CELL DISTRIBUTION WIDTH 12.4 % (12.0-15.0)
[2023-02-07 06:19] LABS: WHITE BLOOD COUNT 39.3 x10^3/uL (4.8-10.8)
[2023-02-07 06:21] LABS: ABNORMAL LYMPHS % (MANUAL) 0 %; CALCIUM 8.5 mg/dL (8.5-10.3); CREATININE 0.9 mg/dL (0.4-1.0); POTASSIUM 3.7 mmol/L (3.5-5.0)
[2023-02-07 06:43] LABS: BAND NEUTROPHILS % (MANUAL) 14 %; LYMPHOCYTES # (MANUAL) 1.2 10^3/uL (1.5-3.5); LYMPHOCYTES % (MANUAL) 3 %; METAMYELOCYTES % (MANUAL) 6 %; MONOCYTES # (MANUAL) 0.8 10^3/uL (0.0-1.0); MYELOCYTES % (MANUAL) 4 %; NEUTROPHILS # (MANUAL) 33.4 10^3/uL (1.5-6.6)
[2023-02-07 06:44] LABS: DIFFERENTIAL COMMENT MANUAL DIFFERENTIAL; PLATELET ESTIMATE, MANUAL NORMAL (130-450,000) (NORMAL); PLATELET MORPHOLOGY NORMAL APPEARANCE (NORMAL); RBC MORPHOLOGY (MULTIPLE) NORMAL APPEARANCE (NORMAL); WBC MORPHOLOGY (MULTIPLE) NORMAL APPEARANCE (NORMAL)
[2023-02-07] MEDS: cefTRIAXone 2 GM in SODIUM CHLORIDE 0.9% MINIBAG 100 ML IV SCH ×2 (08:12→20:59)
[2023-02-07] MEDS ORDERED: VANCOMYCIN INJ 1 GM in SODIUM CHLORIDE 0.9% 250 ML IV SCH ×2 (09:00→16:00)
[2023-02-07 09:50] LABS: ESTIMATED AVERAGE GLUCOSE 108 mg/dL (70-100); HEMOGLOBIN A1c% 5.4 % (4.27-6.07)
[2023-02-07] MEDS: ACETAMINOPHEN 1,000 MG/100 ML 1,000 MG/100 ML BAG IV PRN ×2 (10:33→17:20)
--- NOTE | 2023-02-07 12:29 | PHARMACY PROGRESS NOTE ---
- Therapy Status Vancomycin regimen day #: 2 Therapy status: Awaiting steady state Basis for treatment: Empirical Treatment indication: bacterial meningitis Trough goal: 20 Concurrent antibiotics: ampicillin, ceftriaxone - TIMOTHY Risk Risk level for Acute Kidney Injury: Moderate Acute Kidney Injury risk factors: IV contrast within 72 hrs, Goal trough >15, Chronic baseline hypertension, Admission to ICU - Monitoring and Recommendation Clinical response to treatment: I&O Previous 24 hours 02/05/23 02/06/23 02/07/23 23:59 23:59 23:59 Intake Total 2600 800 Output Total 2450 1025 Balance 150 -225 Lab Results 02/07/23 02/07/23 02/06/23 05:50 01:02 11:17 BUN 17 14 18 Creatinine 0.9 0.8 0.9 Estimated GFR (MDRD) 62 L 71 L 62 L Cultures 02/06/23 14:40 Blood - Left Hand Blood Culture (PCR) - Final 02/06/23 14:40 Blood - Left Hand Blood Culture - Preliminary 02/06/23 14:40 Blood - Right Hand Blood Culture - Preliminary 02/06/23 13:55 Cerebral Spinal Fluid CSF Culture - Preliminary 02/06/23 11:30 Stool Occult Blood - Final Monitoring plan: Daily serum creatinine Next trough due prior to maintenance dose #: 5 Next trough due (date/time): 02/09 @ 0800 Areas for additional monitoring: IV to PO when appropriate Pharmacy recommendation: Increase dose (Initial regime of 1g every 24 hours has a low predicted AUC and trough. Given the treatment indication I have increased to more aggressive twice daily dosing.)
--- NOTE | 2023-02-07 16:15 | PHARMACY PROGRESS NOTE ---
- Best Possible Medication History Admit Date and Time: 02/06/23 1548 Processed by: Pharmacy Patient Interview: Pt unable to participate Secondary Source(s): Physician records, Pharmacy records, Insurance records As the person ultimately responsible for medication therapy, providers are able to order a medication from an existing home medication list in [facility] via the "Reconcile Routine" prior to Confirmation of that medication by computer support specialist instructor. Such practice is discouraged except when the physician, in their clinical judgment, deems that a medical need exists for a medication without regard to previous use.
--- NOTE | 2023-02-07 19:21 | PROVIDER PROGRESS NOTE ---
Progress Note February 07, 2023 7:13 PM She has not really had much response to my broad-spectrum antibiotics. Continues to be unconscious, unresponsive, febrile, tachypneic, tachycardic. Last night telemed interpreted DO NOT RESUSCITATE as not necessarily do not treat. They requested transfer to the ICU but we do not have any beds. He requested BiPAP and that was done temporarily, but BiPAP is not allowed on [facility]. She is not on BiPAP at this time. She has had good urine output. Since midnight last night she is 1650 cc. Blood pressure has been maintained. However she has been consistently tachycardic in the 120s, 130s. Exam: Temperature is 38 2, heart rate 123, blood pressure 113/87, respiratory rate 31. 97% on room air. Continues to be responsive to only pain. No spontaneous movement, no spontaneous opening of eyes and no response to voice. Shotty neck and very stiff Lungs have coarse upper airway sounds with panting head cook small respiration Tachycardic regular rate and rhythm and I do not hear a murmur Abdomen is with hypoactive bowel sounds, and no response to deep palpation. There is no withdrawal, no grimacing as she does with sternal rub. Bowel movement was today. Hensley is draining straw-colored clear urine. Extremities without edema Neurologically continues to have fixed and deviated gaze to the left. Right pupil not reactive. Left pupil is reactive. Decorticate posturing continues. Babinski's also continue to be nonreactive. Labs: BMP has a CO2 of 20, anion gap of 17. BUN 17, creatinine 0.9. A1c is 5.4%. Glucose is 166. CK is 96. White cell count continues to climb and is 39.3 thousand. Hemoglobin 14. Platelets 194 Blood cultures from February 06 are growing Streptococcus pneumonia CSF culture from February 06 has gram-positive cocci identity pending Assessment/plan 1. Sepsis with Meningitis. Streptococcal. Today is day #2 of antibiotics.She continues to spike fevers, have an elevated white cell count, and tachycardia is driven by fever.Streptococcal meningitis has a high mortality rate. I have shared that with her friend Ms. Finch. Plan: De-escalate to Rocephin 2 g twice daily, discontinue vancomycin and ampicillin since there is no Listeria. No ICU bed available. So far blood pressure is not worsening and does not require pressors. I will also repeat blood cultures to assess response.I will also stop bicarb drip. Lactic acid in am. 2. Tachypnea. I agree with telemed that she can only maintain this for so long. But I reiterated a discussion with her best friend Ms. Finch today. Ms. Finch continues to say that they never really discussed CODE STATUS specifically but that the patient herself is said that she had certain criteria for life. She did not want to be alive this way if she were ever brain damage or unable to take care of her self. So she is still DO NOT RESUSCITATE. 3. IV drug abuse. Echocardiogram is not available today. Will wait till next Saturday if this patient's survives to get an echo. 4. Hypokalemia resolved. We will continue to check daily 5. Hyperglycemia. Still present. But no evidence of diabetes on A1c. We will continue to monitor and treat as necessary.
[2023-02-08] MEDS: SODIUM CHLORIDE FLUSH 0.9% 10 ML SYRINGE IVP SCH ×3 (01:39→16:30)
[2023-02-08 07:03] LABS: BASOPHILS % (AUTO) 0.5 %; LYMPHOCYTES % (AUTO) 2.1 %; MEAN CORPUSCULAR HEMOGLOBIN 31.3 pg (27.0-31.0); MEAN CORPUSCULAR HGB CONC 34.2 g/dL (32.0-36.0); MEAN CORPUSCULAR VOLUME 91.3 fL (81.0-99.0); MEAN PLATELET VOLUME 11.4 fL (7.9-10.8); MONOCYTES % (AUTO) 3.4 %; PLT - PLATELET COUNT 179 10^3/uL (130-450); RED BLOOD COUNT 4.16 10^6/uL (4.20-5.40); RED CELL DISTRIBUTION WIDTH 12.7 % (12.0-15.0)
[2023-02-08 07:08] LABS: WHITE BLOOD COUNT 36.9 x10^3/uL (4.8-10.8)
[2023-02-08 07:09] LABS: ABNORMAL LYMPHS % (MANUAL) 0 %
[2023-02-08 07:11] LABS: CALCIUM 8.2 mg/dL (8.5-10.3); CREATININE 0.9 mg/dL (0.4-1.0); POTASSIUM 3.1 mmol/L (3.5-5.0)
[2023-02-08 07:32] LABS: BAND NEUTROPHILS % (MANUAL) 30 %; LYMPHOCYTES # (MANUAL) 1.8 10^3/uL (1.5-3.5); LYMPHOCYTES % (MANUAL) 5 %; MONOCYTES # (MANUAL) 1.1 10^3/uL (0.0-1.0); NEUTROPHILS # (MANUAL) 33.9 10^3/uL (1.5-6.6)
[2023-02-08 07:34] LABS: DIFFERENTIAL COMMENT MANUAL DIFFERENTIAL; PLATELET ESTIMATE, MANUAL NORMAL (130-450,000) (NORMAL); PLATELET MORPHOLOGY NORMAL APPEARANCE (NORMAL); RBC MORPHOLOGY (MULTIPLE) NORMAL APPEARANCE (NORMAL); WBC MORPHOLOGY (MULTIPLE) NORMAL APPEARANCE (NORMAL)
[2023-02-08] MEDS: cefTRIAXone 2 GM in SODIUM CHLORIDE 0.9% MINIBAG 100 ML IV SCH ×2 (08:29→21:01)
--- NOTE | 2023-02-08 16:04 | PROVIDER PROGRESS NOTE ---
Progress Note February 08, 2023 3:40 PM Patient was febrile through yesterday. 38.2 on 2 occasions. Since midnight last night, she has been afebrile. She is 36.4. Continues to be tachypneic at anywhere between 31 breaths a minute and as high as 56 breaths a minute. Continues to be tachycardic at 108-126. I have updated her friend and gabrielelady. She continues to state that the patient has no one to contact. Even though they have been friends for a couple of years, the patient is estranged from her children and from her siblings. In looking through her apartment, there is no number or address for her to contact. She cannot unlock the patient's phone because its a locked phone. On admission I did reach out to Luis Fox. This was a phone number left in her clinic chart for emergency contact. Apparently it is her ex-. Unfortunately he is . We then call the number again today because there are "friends" that are listed at the same phone number. We have left a message and have not gotten a phone call back. I did hope by now that someone would have reached out to us about this patient. A relative, a child. But Ms. Finch, her landlady, says there is no way to get a hold of any of them. Active Medications Ceftriaxone Sodium 2 gm/ (Sodium Chloride) 100 mls @ 200 mls/hr IV BID LAURA Last Infusion: 02/08/23 09:00 Dose: Infused Acetaminophen (Acetaminophen) 1,000 mg in 100 mls @ 400 mls/hr IV Q6HR PRN PRN Reason: Moderate Pain (Level 4-6) Last Infusion: 02/07/23 19:00 Dose: Infused Ondansetron HCl (Ondansetron Odt 4 Mg Tablet) 4 mg TL Q6HR PRN PRN Reason: Nausea / Vomiting Ondansetron HCl (Ondansetron 4 Mg/2 Ml Vial) 4 mg IVP Q6HR PRN PRN Reason: Nausea / Vomiting Oxycodone HCl (Oxycodone 5 Mg Tablet) 5 mg PO Q4HR PRN PRN Reason: Pain 5 to 7 Sodium Chloride (Sodium Chloride Flush 0.9% 10 Ml Syringe) 10 ml IVP PRN PRN PRN Reason: NEEDED PER PROVIDER ORDERS Sodium Chloride (Sodium Chloride Flush 0.9% 10 Ml Syringe) 10 ml IVP 0100,0900,1700 LAURA Last Admin: 02/08/23 08:30 Dose: 10 ml Home Meds: Lisinopril/Hydrochlorothiazide [Zestoretic 20-12.5 mg Tablet] 1 each PO DAILY 02/07/23 Exam: Temperature is 36.4. Heart rate is 126. Blood pressure 136/116. Respiratory rate 49. 96% on room air. Patient continues to have arms at her side, arms turned outward and wrists flexed and fingers closed. Legs are straight and feet turned inward and pointing down. Left eye gaze is fixed and deviated down into the left. Left pupil is not responsive. Right pupil is responsive. Mouth open breathing has left her with severely dry oral mucosa. No response to voice and sternal rub. Neck is still without easy move ability. No carotid bruits. Lungs are without crackles, rhonchi or wheezing. Fast panting shallow respiration Tachycardic regular rate and rhythm Abdomen soft, nontender hypoactive bowel sounds. She had a bowel movement yesterday and a bowel movement today. Hensley catheter is draining clear yellow urine. Extremities continue to have cold hands and feet. But she is not mottling. Labs: Sodium 140, potassium 3.1, carbon dioxide is now normal at 25, anion gap 13. BUN 28, creatinine 0.9. Glucose 121. Lactic acid is normal this morning. She is 1.9. White cell count 36.9. Hemoglobin 13. Platelet 179. Differential has 30% bandemia CSF culture from February 06 as well as blood cultures from February 06 are all growing out strep pneumonia. All sensitive to ceftriaxone. Assessment/plan 1. Sepsis with streptococcal pneumonia meningitis. Today's #3 of antibiotics. No fevers today. White cell count is still elevated. Heart rate is still elevated. I worry about endocarditis in an IV drug abuser. And I wonder if she has any new brain findings that we are not able to notice on physical exam since physical exam has been unchanged since admission. I descalated antibiotics yesterday once cultures came back. She is on Rocephin 2 g twice daily. Unfortunate white cell count continues to be e levated. It is gratifying to note that her anion gap is closed, and her lactic acid is now normal. So she is responding in a small way to treatment but her neurologic exam and her white cell count is not responding. Repeat blood cultures ordered for today to assess response of antibiotics. Echocardiogram cannot be done till next Saturday. I will order CT of the head. 2. DO NOT RESUSCITATE status on the basis of conversation I had with her landlady and friend. We continue to reach out to try and discuss this with any family member and have been unsuccessful. I have enlisted the help of social work and case management as well. So far we have been unsuccessful. We have left a message with a phone that was listed in one of her contacts sheets from the clinic in 2018. We will see if we get a response from that. 3. IV drug abuse. Again, echocardiogram not available. We will continue supportive care with antibiotics. 4. Hypokalemia. It had resolved yesterday but returned again today. We will continue to supplement. I will give 40 mill equivalents of potassium riders.
[2023-02-08] MEDS: ACETAMINOPHEN 1,000 MG/100 ML 1,000 MG/100 ML BAG IV PRN (16:30)
--- NOTE | 2023-02-08 19:19 | CT Report ---
PROCEDURE: HEAD WO INDICATIONS: strep meningitis TECHNIQUE: Noncontrast 4.5 mm thick angled axial sections acquired from the foramen magnum to the vertex. For r adiation dose reduction, the following was used: automated exposure control, adjustment of mA and/or kV according to patient size. COMPARISON: CT head 02/06/2023 FINDINGS: Image quality: Excellent. CSF spaces: Basal cisterns are patent. No extra-axial fluid collections. Ventricles are normal in size and shape. Brain: No midline shift. No intracranial masses or hemorrhage. Bryson-white matter interface is norm al. Skull and face: Calvarium and visualized facial bones are intact, without suspicious lesions. Sinuses: Visualized sinuses and mastoids are clear. IMPRESSION: 1. No acute intracranial process. If concern for meningitis is present, contrast MRI is recommended. Reviewed by: Khushbu Cruz MD on 02/08/2023 7:18 PM PDT Approved by: Khushbu Cruz MD on 02/08/2023 7:18 PM PDT Station ID: [id number]
[2023-02-09] MEDS: SODIUM CHLORIDE FLUSH 0.9% 10 ML SYRINGE IVP SCH ×3 (01:00→16:30)
[2023-02-09 04:59] LABS: BASOPHILS % (AUTO) 0.3 %; EOSINOPHILS % (AUTO) 0.3 %; HCT - HEMATOCRIT 33.9 % (37.0-47.0); HGB - HEMOGLOBIN 11.4 g/dL (12.0-16.0); LYMPHOCYTES % (AUTO) 2.8 %; MEAN CORPUSCULAR HEMOGLOBIN 31.6 pg (27.0-31.0); MEAN CORPUSCULAR HGB CONC 33.6 g/dL (32.0-36.0); MEAN CORPUSCULAR VOLUME 93.9 fL (81.0-99.0); MEAN PLATELET VOLUME 11.6 fL (7.9-10.8); MONOCYTES % (AUTO) 3.9 %; NEUTROPHILS % (AUTO) 92.1 %; PLT - PLATELET COUNT 153 10^3/uL (130-450); RED BLOOD COUNT 3.61 10^6/uL (4.20-5.40); RED CELL DISTRIBUTION WIDTH 13.4 % (12.0-15.0); WHITE BLOOD COUNT 32.5 x10^3/uL (4.8-10.8)
[2023-02-09 05:06] LABS: ABNORMAL LYMPHS % (MANUAL) 0 %
[2023-02-09 05:22] LABS: CALCIUM 8.3 mg/dL (8.5-10.3); CREATININE 0.9 mg/dL (0.4-1.0); POTASSIUM 2.7 mmol/L (3.5-5.0)
[2023-02-09 05:34] LABS: BAND NEUTROPHILS % (MANUAL) 5 %; DIFFERENTIAL COMMENT MANUAL DIFFERENTIAL; LYMPHOCYTES # (MANUAL) 1.3 10^3/uL (1.5-3.5); LYMPHOCYTES % (MANUAL) 4 %; MONOCYTES # (MANUAL) 1.6 10^3/uL (0.0-1.0); NEUTROPHILS # (MANUAL) 29.6 10^3/uL (1.5-6.6); PLATELET ESTIMATE, MANUAL NORMAL (130-450,000) (NORMAL); RBC MORPHOLOGY (MULTIPLE) NORMAL APPEARANCE (NORMAL)
[2023-02-09] MEDS ORDERED: POTASSIUM CHLOR 10 MEQ/100 ML 10 MEQ/100 ML BAG IV ONE (06:37)
[2023-02-09] MEDS ORDERED: POTASSIUM CHLORIDE 20 MEQ TABLET PO ONE (06:40)
[2023-02-09] MEDS: cefTRIAXone 2 GM in SODIUM CHLORIDE 0.9% MINIBAG 100 ML IV SCH ×2 (08:31→21:04)
[2023-02-09] MEDS: POTASSIUM CHLOR 10 MEQ/100 ML 10 MEQ/100 ML BAG IV SCH ×8 (08:40→16:29)
--- NOTE | 2023-02-09 15:28 | PROVIDER PROGRESS NOTE ---
Progress Note February 09, 2023 3:16 PM There has been no response to her phone calls at the phone number she left in her clinic chart for emergency contacts. I have tried and social work as tried. She spiked a temp yesterday at 4:00 in the afternoon. Since 4 PM she has not had any temperatures. This morning she was 37.7. She continues to be tachycardic. This morning she has been 115. She does have urine output. When she was first admitted she had 2450 out, and on the second day 1950. Yesterday she had 600 out, and as of midnight last night she has had 675 today. She is getting potassium riders at 100 cc an hour. And maintenance IV fluid was discontinued because she was starting to get a little edematous yesterday. She still has no spontaneous verbalization or opening of eyes or response to our voice or sternal manipulation. The only thing she moved was on admission when she did not like Babinski's being tested. But in testing Babinskis on a daily basis she has not withdrawn to that since day #2. Exam: Temperature is 37.7, heart rate 115, blood pressure 175/65. Respirations 40, 95% on room air She is 5 foot 4 inches tall, 66.8 kg Face and body is covered in a thin sheen of sweat. Red face. Red forearms arms and anterior chest wall. Diffuse discoloration that is blanching. Neck is stiff, with shotty adenopathy. Lungs have coarse upper airway sounds with her e learning coordinator small panting respiration Although she was tachycardic this morning, I find her to have a regular rate and rhythm that is below 100 on my exam right now Abdomen has hypoactive bowel sounds. She had a bowel movement today. Hensley catheter is draining clear yellow urine. Extremities have diffuse puffiness and appearance of anasarca. Neurologically she continues to be unresponsive to deep sternal rub or voice. There is improvement in that the left eye is no longer fixed and deviated down. The left eye is dilated midpoint. Unresponsive. The right pupil is smaller and slightly responsive. She did at one point turn her head to the right during my exam but that is the only spontaneous movement I saw. She does not withdraw her feet to Babinski's. Lab: Sodium 144, potassium 2.7, chloride 107, carbon dioxide 26, anion gap 11. BUN 34, creatinine 0.9. Random glucose 120. White cell count came down to 32.5 today. She peaked at 39.3 on February 07. Hemoglobin is 11.4. During this admission she has been normal at 13 g and today is the first drop. Platelets are 153. Slowly coming down from the 313 on admission. Blood cultures from February 08 have been done and results are pending. Assessment/plan 1. Sepsis with streptococcal pneumonia meningitis. Today is day #4 of antibiotics. She was initially treated with Rocephin and vancomycin and ampicillin. I descalated to Rocephin once a saw that her cultures were only growing out strep pneumonia. Sensitivities show it to be sensitive to the Rocephin. She is on Rocephin 2 g twice daily. White cell count is slowly coming down. Anion gap is also coming down and has been normal. BUN is rising. Creatinine is staying stable. Urine output slowing a little bit today. Not on maintenance IV therapy. Exam today shows some resolution of neurological deficits and that her left eye is no longer fixed and deviated. But she still unresponsive and with decorticate posturing. I have repeated blood cultures to assess response. Those results are pending. I repeated a CT of the head to make sure she did not develop any abscesses and that repeat CT of head was negative yesterday afternoon. I really have tried between social work and myself to identify any family or friend that this patient could have a DPOA. We are unable to find anyone. Although have made the patient DO NOT RESUSCITATE, I have done this only on the basis of the discussion that her landlady and friend documents that this patient never wanted a lot done. Plan: Continue 2 g twice daily of Rocephin Continue monitoring of CBC and neurological exam Neck step would be echocardiogram when echo is available on Saturday (today is Saturday). I would look for vegetations and evidence of endocarditis. This would make a difference of treating her meningitis and bacteremia for 7 to 10 days versus 6 weeks. 2. Protein calorie malnutrition. I do not know how much she was eating before she was admitted and since admission she has not been conscious enough to eat. Plan: NG tube placement since we do not do Heriberto feeding tubes here. We do not have fluoroscopy. I did speak to radiology yesterday and asked if they were comfortable placing a KO feeding tube with the C arm and they said no. As such I will place an NG tube today and start tube feeds. 3. IV drug abuse. Again echocardiogram not available We will continue supportive care and I will order the echo for next Saturday. 4. Hypokalemia. She is receiving potassium riders. Continues to need supplement today. Those will continue with another 40 mill equivalent back.
--- NOTE | 2023-02-09 18:59 | XRAY Report ---
PROCEDURE: Chest for Line Placement INDICATIONS: NGT placement TECHNIQUE: One view of the chest was acquired. COMPARISON: Chest CT February 06, 2023 FINDINGS: Surgical changes and devices: Enteric tube courses below the diaphragm with side port below the GE j unction. Left subclavian line with tip in the superior vena cava. Lungs and pleura: Airspace opacities seen on comparison CT chest is not well seen by radiograph. No pneumothorax. No pleural effusion. Mediastinum: Mediastinal contours appear normal. Heart size is normal. Bones and chest wall: No suspicious bony lesions. Overlying soft tissues appear unremarkable. IMPRESSION: 1.Appropriate positioning of enteric tube. 2.No acute cardiopulmonary process identified. Reviewed by: Onesimo Schaefer MD on 02/09/2023 5:58 PM AKTITA Approved by: Onesimo Schaefer MD on 02/09/2023 5:58 PM AKDT Station ID: [id number]
[2023-02-10] MEDS: SODIUM CHLORIDE FLUSH 0.9% 10 ML SYRINGE IVP SCH ×3 (00:43→21:10)
[2023-02-10] MEDS: ACETAMINOPHEN 1,000 MG/100 ML 1,000 MG/100 ML BAG IV PRN ×2 (00:46→21:22)
[2023-02-10 05:12] LABS: BASOPHILS % (AUTO) 0.3 %; EOSINOPHILS % (AUTO) 0.2 %; HGB - HEMOGLOBIN 12.2 g/dL (12.0-16.0); LYMPHOCYTES % (AUTO) 5.3 %; MEAN CORPUSCULAR HEMOGLOBIN 31.4 pg (27.0-31.0); MEAN CORPUSCULAR HGB CONC 33.9 g/dL (32.0-36.0); MEAN CORPUSCULAR VOLUME 92.8 fL (81.0-99.0); MEAN PLATELET VOLUME 12.1 fL (7.9-10.8); MONOCYTES % (AUTO) 8.1 %; NEUTROPHILS % (AUTO) 85.3 %; PLT - PLATELET COUNT 177 10^3/uL (130-450); RED BLOOD COUNT 3.88 10^6/uL (4.20-5.40); RED CELL DISTRIBUTION WIDTH 13.8 % (12.0-15.0); WHITE BLOOD COUNT 19.7 x10^3/uL (4.8-10.8)
[2023-02-10 05:21] LABS: CALCIUM 8.3 mg/dL (8.5-10.3); CREATININE 0.8 mg/dL (0.4-1.0); POTASSIUM 3.1 mmol/L (3.5-5.0)
[2023-02-10 05:24] LABS: ABNORMAL LYMPHS % (MANUAL) 0 %; BAND NEUTROPHILS % (MANUAL) 0 %
[2023-02-10] MEDS: CARBOXYMETHYLCELLULOSE OPHTH DROPS EACHEYE PRN (05:48)
[2023-02-10 06:22] LABS: DIFFERENTIAL COMMENT MANUAL DIFFERENTIAL; LYMPHOCYTES # (MANUAL) 2.8 10^3/uL (1.5-3.5); LYMPHOCYTES % (MANUAL) 14 %; PLATELET ESTIMATE, MANUAL NORMAL (130-450,000) (NORMAL); RBC MORPHOLOGY (MULTIPLE) NORMAL APPEARANCE (NORMAL)
[2023-02-10] MEDS: cefTRIAXone 2 GM in SODIUM CHLORIDE 0.9% MINIBAG 100 ML IV SCH ×2 (08:12→21:10)
[2023-02-10] MEDS: POTASSIUM CHLOR 10 MEQ/100 ML 10 MEQ/100 ML BAG IV SCH ×4 (08:21→11:37)
[2023-02-10] MEDS: hydrALAZINE INJ 20 MG/ML VIAL IVP SCH ×3 (08:27→21:15)
--- NOTE | 2023-02-10 17:15 | PROVIDER PROGRESS NOTE ---
Progress Note February 10, 2023 5 PM Case management and I continue to try and find anybody that we could contact in this woman's life. We reviewed the clinic notes again and found a Peng Mcpherson listed. He is addressed on Google was on [place] in [place]. We call the phone number associated with that name and unfortunately that person says that they have not lived and would be Danis for 5 years. They do not know Ms. Fox. Continues to have daily temperature spikes. Today hers was at midnight. So far no temperature spike beyond midnight but they have been daily since she has been admitted. Continues to have continued tachycardia, hypertension. She is tolerating tube feeds that I started yesterday. Exam: Temperature 37.2, heart rate has been consistently tachycardic between 110 and up to 115. Highest her blood pressure today was 178/85. This afternoon she is 156/68. Cachectic, unresponsive, white female with mouth open breathing, eyes half open, and although arms are at her side and fingers are closed, wrist is no longer flex, and feet and no longer posturing for decorticate posturing. Left eye has now come back to the midline. Pupils are midpoint, not responsive. She does not respond to voice or pain (sternal rub) Open mouth breathing has resulted in very dry oral mucosa. NG tube in place. Coarse upper airway sounds but no crackles or rhonchi. Respiratory rate was 38 this morning. Tachycardic regular rate and rhythm without a murmur Abdomen is scaphoid, nondistended, hypoactive bowel sounds. She had a bowel movement today. Hensley is draining clear yellow urine. Extremities with trace edema. Lab: Sodium 145, potassium 3.1. I am supplementing her potassium daily through K riders. BUN 34, creatinine 0.8. White cell count continues to come down. She peaked at 39.3 February 07. Yesterday she was 32.5, and today she is 19.7 Assessment/plan 1. Sepsis with streptococcal pneumonia meningitis. Today is day #5 of antibiotics. Initial treatment for meningitis with broad- spectrum antibiotics with Rocephin, vancomycin and ampicillin. Rocephin was continued while vancomycin and ampicillin were discontinued once her cultures came back for strep pneumonia. Sensitivities show it to be sensitive to Rocephin. Continues on Rocephin 2 g twice daily. White cell count is continuing to come down slowly. Creatinine is staying stable. She is not on maintenance IVs but does get anywhere from 400-500 a day of IV fluids on the basis of K riders and antibiotics. She is now also getting free water through her tube feeds. Repeat blood cultures to assess response to therapy are negative from February 08. There is no growth after [address] of the head to reassess for abscesses is also negative. While she is clinically responding, she is not regaining consciousness. Plan: Continue 2 g twice a day of Rocephin Continue monitoring CBC and neurological exam. While CBC is showing improvement, neurologic exam is now. Echocardiogram on Saturday (today is Saturday). Continue to try and locate any family or DPOA. From a logistics perspective, if I cannot identify a DPOA, she may be here for a while as we try and get guardianship and then placement if she does not wake up. 2. Protein calorie malnutrition. NG tube was placed February 09 afternoon. I have started her on tube feeds, and 100 cc of water every shift. She is on 25 cc/hr for feeding. I will increase to 30. 3. IV drug abuse. Echocardiogram on Saturday 4. Hypokalemia. Continue K riders until patient is normal.
[2023-02-11] MEDS: SODIUM CHLORIDE FLUSH 0.9% 10 ML SYRINGE IVP SCH ×3 (01:00→22:32)
[2023-02-11] MEDS: hydrALAZINE INJ 20 MG/ML VIAL IVP SCH ×3 (06:50→21:42)
[2023-02-11 07:09] LABS: CALCIUM 8.7 mg/dL (8.5-10.3); CREATININE 0.6 mg/dL (0.4-1.0); POTASSIUM 3.6 mmol/L (3.5-5.0)
[2023-02-11 07:16] LABS: BASOPHILS # (AUTO) 0.1 10^3/uL (0.0-0.1); BASOPHILS % (AUTO) 0.4 %; EOSINOPHILS % (AUTO) 0.1 %; HCT - HEMATOCRIT 37.7 % (37.0-47.0); HGB - HEMOGLOBIN 12.4 g/dL (12.0-16.0); LYMPHOCYTES # (AUTO) 1.6 10^3/uL (1.5-3.5); LYMPHOCYTES % (AUTO) 13.9 %; MEAN CORPUSCULAR HEMOGLOBIN 30.5 pg (27.0-31.0); MEAN CORPUSCULAR HGB CONC 32.9 g/dL (32.0-36.0); MEAN CORPUSCULAR VOLUME 92.9 fL (81.0-99.0); MEAN PLATELET VOLUME 12.2 fL (7.9-10.8); MONOCYTES # (AUTO) 1.7 10^3/uL (0.0-1.0); MONOCYTES % (AUTO) 14.4 %; NEUTROPHILS # (AUTO) 7.7 10^3/uL (1.5-6.6); NEUTROPHILS % (AUTO) 67.9 %; PLT - PLATELET COUNT 245 10^3/uL (130-450); RED BLOOD COUNT 4.06 10^6/uL (4.20-5.40); RED CELL DISTRIBUTION WIDTH 14.1 % (12.0-15.0); WHITE BLOOD COUNT 11.4 x10^3/uL (4.8-10.8)
[2023-02-11 07:26] LABS: SLIDE REVIEW? Indicated
[2023-02-11 07:51] LABS: RBC MORPHOLOGY (MULTIPLE) 2+ ANISOCYTOSIS (NORMAL)
[2023-02-11] MEDS ORDERED: DEXTROSE 5% 1,000 ML IV SCH (09:00)
[2023-02-11] MEDS: cefTRIAXone 2 GM in SODIUM CHLORIDE 0.9% MINIBAG 100 ML IV SCH ×2 (09:47→21:39)
[2023-02-11] MEDS: ACETAMINOPHEN 1,000 MG/100 ML 1,000 MG/100 ML BAG IV PRN ×2 (10:12→21:46)
[2023-02-11] MEDS: PANTOPRAZOLE 40 MG VIAL IVP SCH (13:37)
--- NOTE | 2023-02-11 16:03 | PROVIDER PROGRESS NOTE ---
Progress Note February 11, 2023 3:34 PM Even though her lactic acidosis is resolved, this patient's Kussmaul breathing continues. It is a steady tachypnea. Temperature spike again yesterday. She had at midnight, and 9 PM. Overall her body rigidity from decorticate posturing has slackened. But she remains unresponsive to deep rub or painful stimuli. She is tolerating her tube feeds. Nutrition services and I have discussed the case. I will be increasing her tube feeds to 60 cc an hour, and increasing her free water. Active Medications Carboxymethylcellulose (Carboxymethylcellulose Ophth Drops) 1 drops EACHEYE PRN PRN PRN Reason: Dry Eye Last Admin: 02/10/23 05:48 Dose: 1 drops Hydralazine HCl (Hydralazine Inj 20 Mg/Ml Vial) 10 mg IVP TID [facility] Last Admin: 02/11/23 15:14 Dose: Not Given Ceftriaxone Sodium 2 gm/ (Sodium Chloride) 100 mls @ 200 mls/hr IV BID [facility] Last Infusion: 02/11/23 11:10 Dose: Infused Acetaminophen (Acetaminophen) 1,000 mg in 100 mls @ 400 mls/hr IV Q6HR PRN PRN Reason: Moderate Pain (Level 4-6) Last Infusion: 02/11/23 10:35 Dose: Infused Ondansetron HCl (Ondansetron Odt 4 Mg Tablet) 4 mg TL Q6HR PRN PRN Reason: Nausea / Vomiting Ondansetron HCl (Ondansetron 4 Mg/2 Ml Vial) 4 mg IVP Q6HR PRN PRN Reason: Nausea / Vomiting Oxycodone HCl (Oxycodone 5 Mg Tablet) 5 mg PO Q4HR PRN PRN Reason: Pain 5 to 7 Pantoprazole Sodium (Pantoprazole 40 Mg Vial) 40 mg IVP QDAC [facility] Last Admin: 02/11/23 13:37 Dose: 40 mg Sodium Chloride (Sodium Chloride Flush 0.9% 10 Ml Syringe) 10 ml IVP PRN PRN PRN Reason: NEEDED PER PROVIDER ORDERS Sodium Chloride (Sodium Chloride Flush 0.9% 10 Ml Syringe) 10 ml IVP 0100,0900,1700 [facility] Last Admin: 02/11/23 10:37 Dose: 10 ml Home Meds: Lisinopril/Hydrochlorothiazide [Zestoretic 20-12.5 mg Tablet] 1 each PO DAILY 02/07/23 Exam: Temperature is 36.2 right now, heart rate is 96, blood pressure 151/70. She is breathing at 40 breaths/min. 94% on room air. Shotty adenopathy in her neck. Her neck was quite stiff in the last day or 2 is starting to slacken and I do not feel rigidity Lungs have tachypneic hyperventilating respirations. But they are clear. I do not hear crackles or rhonchi. Nursing reports that sometimes she is hearing more phlegm. Tachycardic regular rate and rhythm at times. Today she is very between 96-118. Abdomen is soft, not distended, hypoactive bowel sounds. She does not respond to deep palpation. But she is not responsive to painful stimuli. Hensley is draining clear yellow urine Extremities are warm, she has not been diaphoretic today. Trace edema around ankles and hands. Neurologically, she had a fixed left gaze deviation of the left eye when she was admitted. That has disappeared. Her right pupil was slightly responsive. Left pupil was not. Today both pupils are midpoint, not really responsive. She does not respond to sternal rub. Right foot has a slight twitch when I check for Babinski's but it is equivocal. There is no up or down. Left foot is unresponsive. I have only seen her do spontaneous head movement once and that was 2 days ago. She was turning her head to the right. Since that time nursing and myself have not observed any spontaneous movement of limbs, legs, feet. Lab: Sodium is 146. It has been gradually creeping up by 1 or 2 mmol since admission. She was 137 on admission. Today is the first time she has been hyponatremic. Potassium is 3.6. She is now normal. This entire stay she has been requiring potassium riders to get her up. BUN is 32, creatinine 0.6. Staying stable. Random glucose 162. Calcium is 8.7. White cell count is 11.4. She peaked at 39.3 on the . She has been gradually coming down. Hemoglobin 12.4. Hematocrit 37.7. Platelets 245. She still has a left shift with bandemia Assessment/plan 1. Sepsis with streptococcal pneumonia meningitis Today is day #6 of antibiotics. My initial treatment for empiric use of antibiotics in meningitis was Rocephin, vancomycin, ampicillin. Once her cultures came back positive for strep pneumonia, I de-escalated to Rocephin alone. White cell count is coming down. Initial lactic acidosis and sepsis criteria have resolved. She is still tachycardic. Still with tachypnea. She has good urine output. I have had her on maintenance IVs off and on to make sure I do not fluid overload. She has not required pressors. Unfortunately, she has not woken up. Her initial decorticate posturing that was present for several days has gradually slackened over the last 48 hours. Her left eye is no longer fixed and deviated but pupils remain minimally responsive. Babinski's are not responsive. I have repeated the CT of her head to make sure she is not herniating and to make sure there is no abscesses. The CT of her head is negative from February 08. Repeat blood cultures to make sure she is responding to the Rocephin were negative on February 08. Plan: Echocardiogram tomorrow. I will to make sure there is no evidence of endocarditis. If there is endocarditis she would need up to 6 weeks of IV antibiotic therapy. If there is no endocarditis seen, I would anticipate 7 to 10 days of IV antibiotic therapy. At least until her white cell count is down. Continue daily CBC -Continue to work with social work and case management and trying to find any family members. 2. Protein calorie malnutrition. I placed an NG tube on February 09, and started her on tube feedings. After discussing with nutrition services, I will increase her tube feedings from 25 cc an hour to 60 cc an hour to meet caloric requirements. And I am increasing free water through her tube as well. 3. IV drug abuse. Echocardiogram tomorrow 4. Hypokalemia has resolved but I will continue to monitor on a daily basis 5. Coma. The fact that she has Kussmaul breathing still leads me to think that this patient still has an infectious/inflammatory response to her meningitis. I have ruled out abscess. She is responding to the Rocephin. But I do not know how much cognitive deficits she is going to have if she recovers from this. If we cannot find a family member that is a legal DPOA, we will have to continue to support her and treat her. We will then need to seek guardianship. From there guardianship can determine placement. 6. Hypertension. She has a history of hypertension and was on an BRENDA inhibitor before admission. Her systolic is gotten as high as 176 once, and she has been maintaining 140s, 150s. Plan: Resume her Zestoretic via NG and crush the tablet consider metoprolol if BP continues to be elvated.
[2023-02-11] MEDS: MORPHINE SOL 10 MG/0.5 ML ORAL SYRINGE PO PRN (22:56)
[2023-02-12] MEDS: SODIUM CHLORIDE FLUSH 0.9% 10 ML SYRINGE IVP SCH ×2 (01:03→08:02)
[2023-02-12] MEDS: hydrALAZINE INJ 20 MG/ML VIAL IVP SCH ×2 (05:38→13:57)
[2023-02-12] MEDS: PANTOPRAZOLE 40 MG VIAL IVP SCH (05:41)
[2023-02-12 07:54] LABS: ALBUMIN 2.7 g/dL (3.2-5.5); ALBUMIN/GLOBULIN RATIO 0.7 (1.0-2.2); BILIRUBIN,TOTAL 0.3 mg/dL (0.2-1.0); CALCIUM 8.6 mg/dL (8.5-10.3); CREATININE 0.8 mg/dL (0.4-1.0); MAGNESIUM 2.2 mg/dL (1.7-2.8); PHOSPHORUS 3.1 mg/dL (2.5-4.6); TOTAL PROTEIN 6.6 g/dL (6.7-8.2)
[2023-02-12] MEDS: cefTRIAXone 2 GM in SODIUM CHLORIDE 0.9% MINIBAG 100 ML IV SCH (08:01)
[2023-02-12] MEDS: MORPHINE SOL 10 MG/0.5 ML ORAL SYRINGE PO PRN ×2 (08:02→12:42)
[2023-02-12] MEDS ORDERED: lisinopriL 20 MG TABLET NG SCH (09:00)
[2023-02-12] MEDS ORDERED: hydroCHLOROthiazide 12.5 MG CAPSULE PO SCH ×2 (09:00)
[2023-02-12] MEDS: ACETAMINOPHEN 1,000 MG/100 ML 1,000 MG/100 ML BAG IV PRN (09:09)
[2023-02-12 09:40] LABS: BASOPHILS # (AUTO) 0.1 10^3/uL (0.0-0.1); BASOPHILS % (AUTO) 0.3 %; EOSINOPHILS % (AUTO) 0.1 %; HCT - HEMATOCRIT 38.7 % (37.0-47.0); HGB - HEMOGLOBIN 12.6 g/dL (12.0-16.0); LYMPHOCYTES # (AUTO) 1.9 10^3/uL (1.5-3.5); LYMPHOCYTES % (AUTO) 13.1 %; MEAN CORPUSCULAR HGB CONC 32.6 g/dL (32.0-36.0); MEAN CORPUSCULAR VOLUME 95.3 fL (81.0-99.0); MEAN PLATELET VOLUME 12.2 fL (7.9-10.8); MONOCYTES # (AUTO) 1.5 10^3/uL (0.0-1.0); MONOCYTES % (AUTO) 10.4 %; NEUTROPHILS # (AUTO) 10.8 10^3/uL (1.5-6.6); NEUTROPHILS % (AUTO) 73.8 %; NRBC ABSOLUTE COUNT (AUTO) 0.02 x10^3/uL; NUCLEATED RED BLOOD CELLS AUTO 0.1 /100WBC; PLT - PLATELET COUNT 371 10^3/uL (130-450); RED BLOOD COUNT 4.06 10^6/uL (4.20-5.40); RED CELL DISTRIBUTION WIDTH 14.5 % (12.0-15.0); WHITE BLOOD COUNT 14.6 x10^3/uL (4.8-10.8)
--- NOTE | 2023-02-12 11:34 | XRAY Report ---
PROCEDURE: Chest 1 View X-Ray INDICATIONS: brain damage,getting ng feeds fever, eval for PNA TECHNIQUE: One view of the chest was acquired. COMPARISON: 02/09/2023 FINDINGS: Surgical changes and devices: Left central line terminates in the proximal SVC. Enteric tube termina uziel in the gastric fundus. Lungs and pleura: No dense consolidation or pleural effusion. Mediastinum: Heart size is within normal limits Bones and chest wall: No suspicious bony lesions. Overlying soft tissues appear unremarkable. Left axillary clips. IMPRESSION: Appropriate positioning of the central line and enteric tube. No acute pulmonary consolidation. Reviewed by: Favian Mantilla MD on 02/12/2023 11:33 AM PDT Approved by: Favian Mantilla MD on 02/12/2023 11:33 AM PDT Station ID: [id number]
[2023-02-12] MEDS ORDERED: ZINC OXIDE 20% OINT 30 GM TUBE TOP PRN (13:51)
[2023-02-12] MEDS: CARBOXYMETHYLCELLULOSE OPHTH DROPS EACHEYE PRN (13:58)
--- NOTE | 2023-02-12 17:14 | PROVIDER PROGRESS NOTE ---
Assessment/Plan - Problem List (1) Coma Assessment/Plan: She cont to have Kussmaul breathing. This leads me to think that this patient still has an infectious/inflammatory response to her meningitis and that her abn breathing is neurologically driven. We have ruled out abscess. She is responding to the Rocephin. But we do not know how much cognitive deficits she is going to have if she recovers from this. We have no EEG here to eval for brain , or a Neurologist here for consultation (at this [facility]). We were unable to find a family member or a legal DPOA. But today, SW supplied Hospitalist with name of step-daughter, Concepcion, who I spoke to. Concepcion said that there is a daughter, Bea, who I than spoke to, and a son Onesimo, that Bea will speak to. Then I got a call from pt's sister Samira Weber, who I spoke to. With each of them and I discussed her current status, her poor prognosis and they said they want to have a family discussion, and they are also coming in to see her. Plan: We will continue with supportive care and full medical management Patient was made a DNR at admission after speaking to the friend Jailene at admission. The pt's sister said that she believes they had a discussion about her CODE STATUS which the sister will try to find. There was no request to change her CODE STATUS from DNR to full code. 2. Streptococcal pneumonia meningitis She is on iv antibiotics. Initial empiric antibiotic treatment for meningitis was Rocephin, vancomycin, ampicillin. Once her cultures came back positive for strep pneumonia, this was de-escalated to Rocephin alone. White cell count is coming down. Initial lactic acidosis and sepsis criteria have resolved. She is still tachycardic. Still with tachypnea. She has good urine output. I have had her on maintenance IVs off and on to make sure I do not fluid overload. She has not required pressors. Unfortunately, she has not woken up. Her initial decorticate posturing that was present for several days has gradually slackened over the last 48 hours. Her left eye is no longer fixed and deviated but pupils remain minimally responsive. Babinski's are not responsive. I have repeated the CT of her head to make sure she is not herniating and to make sure there is no abscesses. The CT of her head is negative from February 08. Repeat blood cultures to make sure she is responding to the Rocephin were negative on February 08. Plan: Echocardiogram to be done today eval for endocarditis. If there is endocarditis she would need up to 6 weeks of IV antibiotic therapy. If there is no endocarditis seen, I would anticipate 7 to 10 days of IV antibiotic therapy. At least until her white cell count is down. Continue daily CBC 3. Strep bacteremia Plan: As above in #2. Continue with IV antibiotics Echo ordered to evaluate for endocarditis 4. IV drug abuse Her drug screen was positive for methamphetamine, amphetamine and opiates Plan: Echo still pending 5. Protein calorie malnutrition. We placed an NG tube on February 09, and started her on tube feedings. After discussing with nutrition services, we are adjusting her tube feedings to meet caloric requirements. Also she is getting free water flushes often through her tube as well. 6. Hypertension. She has a history of hypertension and was on an BRENDA inhibitor before admission. Her systolic is gotten as high as 176 once, and she has been maintaining 140s, 150s. Her Zestoretic was resumed and given as Lisinopril and HCTZ via NG with crushing the tablets Plan: Due to a borderline elevated/high serum sodium of 144 (which was 146), we will stop the HCTZ to prevent sodium loss Will begin amlodipine 2.5 mg daily Continue Considering metoprolol if BP continues to be elevated. 7. Hypokalemia This has resolved Plan: Will continue to monitor BMP on a daily basis 8. Sepsis Initial lactic acidosis and sepsis criteria have resolved - Current Meds Current Meds: Current Medications Generic Name Dose Route Start Last Admin Trade Name Freq PRN Reason Stop Dose Admin Carboxymethylcellulose 1 drops 02/10/23 02:06 02/12/23 13:58 Carboxymethylcellulose Ophth Drops EACHEYE 1 drops PRN PRN Administration Dry Eye Hydralazine HCl 10 mg 02/10/23 09:00 02/12/23 13:57 Hydralazine Inj 20 Mg/Ml Vial IVP Not Given TID LAURA Ceftriaxone Sodium 2 gm/ 100 mls @ 200 mls/hr 02/06/23 21:00 02/12/23 09:09 Sodium Chloride IV Infused BID [facility] Infusion Acetaminophen 1,000 mg in 100 mls @ 400 mls/hr 02/07/23 09:21 02/12/23 09:30 Acetaminophen IV Infused Q6HR PRN Infusion Moderate Pain (Level 4-6) Lisinopril 20 mg 02/12/23 09:00 02/12/23 09:09 Lisinopril 20 Mg Tablet NG 20 mg DAILY LAURA Administration Morphine Sulfate 10 mg 02/11/23 21:56 02/12/23 12:42 Morphine Stormy 10 Mg/0.5 Ml Oral Syringe PO 10 mg Q2HR PRN Administration Moderate Pain (Level 4-6) Pantoprazole Sodium 40 mg 02/11/23 13:00 02/12/23 05:41 Pantoprazole 40 Mg Vial IVP 40 mg QDAC LAURA Administration Sodium Chloride 10 ml 02/06/23 17:00 02/12/23 08:02 Sodium Chloride Flush 0.9% 10 Ml Syringe IVP 10 ml 0100,0900,1700 LAURA Administration - Lab Result Fish Bone Diagrams: 02/12/23 06:45 02/12/23 06:45 - Additional Planning My Orders: My Active Orders 02/12/23 11:25 CULTURE, BLOOD #1 [RM] Stat 02/12/23 13:51 Zinc Oxide 20% Oint [Zinc Oxide] 1 applic TOP PRN PRN 02/13/23 05:00 CBC - COMP BLD CT W/AUTO DIFF [HEME] DAILYLAB 02/13/23 09:00 amLODIPine [Norvasc] 2.5 mg PO DAILY 02/14/23 05:00 CBC - COMP BLD CT W/AUTO DIFF [HEME] DAILYLAB 02/15/23 05:00 CBC - COMP BLD CT W/AUTO DIFF [HEME] DAILYLAB 02/16/23 05:00 CBC - COMP BLD CT W/AUTO DIFF [HEME] DAILYLAB Subjective - Subjective Nursing Reports: Other (Comatose, tachypneic) Objective Vital Signs: Vital Signs - 24 hr 02/11/23 02/11/23 02/11/23 21:42 21:49 23:38 Temperature 37.1 C 36.4 C L Heart Rate [ 95 111 H Brachial] Heart Rate [ Monitoring electrodes] Respiratory 42 H Rate Blood Pressure 155/71 H Blood Pressure 155/71 H 159/63 H [Right Brachial artery] O2 Saturation 91 L 02/12/23 02/12/23 02/12/23 05:37 09:07 09:15 Temperature 38.3 C H Heart Rate [ 117 H Brachial] Heart Rate [ Monitoring electrodes] Respiratory 55 H 52 H Rate Blood Pressure Blood Pressure 153/70 H 165/63 H [Right Brachial artery] O2 Saturation 94 92 02/12/23 02/12/23 02/12/23 10:10 12:15 13:41 Temperature 37.3 C 37.4 C Heart Rate [ Brachial] Heart Rate [ 116 H Monitoring electrodes] Respiratory 44 H Rate Blood Pressure Blood Pressure 153/56 H [Right Brachial artery] O2 Saturation 85 L 93 02/12/23 13:57 Temperature Heart Rate [ Brachial] Heart Rate [ Monitoring electrodes] Respiratory Rate Blood Pressure 153/56 H Blood Pressure [Right Brachial artery] O2 Saturation Oxygen O2 Source Room air I&O (Last 24 Hrs): Intake and Output Totals x24h 02/10/23 02/11/23 02/12/23 23:59 23:59 23:59 Intake Total 1485 6538.105 7185 Output Total 1070 1083 550 Balance 415 906.840 511 General: Other (Cachectic, sunken eyes, ng tube in place, tachypneic) HEENT: Other (Dry mucosa, poor dentition,) Neck: Other (No spontaneous muscle movements to assess neck) Neuro: Other (Comatose, does not respond to sternal rub) Cardiovascular: Regular rate Respiratory: Rales, Rhonchi Abdomen: Other (flat) Extremities: No clubbing, Other (Muscle wasting) - Results Results: Laboratory Results WBC 14.6 x10^3/uL (4.8-10.8) H 02/12/23 06:45 RBC 4.06 10^6/uL (4.20-5.40) L 02/12/23 06:45 Hgb 12.6 g/dL (12.0-16.0) 02/12/23 06:45 Hct 38.7 % (37.0-47.0) 02/12/23 06:45 MCV 95.3 fL (81.0-99.0) 02/12/23 06:45 MCH 31.0 pg (27.0-31.0) 02/12/23 06:45 MCHC 32.6 g/dL (32.0-36.0) 02/12/23 06:45 RDW 14.5 % (12.0-15.0) 02/12/23 06:45 Plt Count 371 10^3/uL (130-450) 02/12/23 06:45 MPV 12.2 fL (7.9-10.8) H 02/12/23 06:45 Neut # (Auto) 10.8 10^3/uL (1.5-6.6) H 02/12/23 06:45 Lymph # (Auto) 1.9 10^3/uL (1.5-3.5) 02/12/23 06:45 [place] # (Auto) 1.5 10^3/uL (0.0-1.0) H 02/12/23 06:45 Eos # (Auto) 0.0 10^3/uL (0.0-0.7) 02/12/23 06:45 Baso # (Auto) 0.1 10^3/uL (0.0-0.1) 02/12/23 06:45 Absolute Nucleated RBC 0.02 x10^3/uL 02/12/23 06:45 Total Counted 100 02/10/23 05:00 Band Neuts % (Manual) 0 % (0-10) 02/10/23 05:00 Abnorm Lymph % (Manual) 0 % 02/10/23 05:00 Metamyelocytes % 6 % (-0) H 02/07/23 05:50 Myelocytes % 4 % (-0) H 02/07/23 05:50 Nucleated RBC % 0.1 /100WBC 02/12/23 06:45 Neutrophils # (Manual) 16.0 10^3/uL (1.5-6.6) H 02/10/23 05:00 Lymphocytes # (Manual) 2.8 10^3/uL (1.5-3.5) 02/10/23 05:00 Monocytes # (Manual) 1.0 10^3/uL (0.0-1.0) 02/10/23 05:00 Eosinophils # (Manual) 0.0 10^3/uL (0-0.7) 02/10/23 05:00 Basophils # (Manual) 0.0 10^3/uL (0-0.1) 02/10/23 05:00 Differential Comment MANUAL DIFFERENTIAL 02/10/23 05:00 Manual Slide Review Indicated 02/11/23 06:35 WBC Morphology NORMAL APPEARANCE (NORMAL) 02/08/23 06:15 Platelet Estimate NORMAL (130-450,000) (NORMAL) 02/10/23 05:00 Platelet Morphology NORMAL APPEARANCE (NORMAL) 02/08/23 06:15 RBC Morph Micro Appear 2+ ANISOCYTOSIS (NORMAL) 02/11/23 06:35 Bld Gas Analysis Time 1430 02/06/23 14:30 Sample Site RIGHT RADIAL 02/06/23 14:30 ABG pH 7.40 (7.35-7.45) 02/06/23 14:30 ABG pCO2 32 mmHg (34-45) L 02/06/23 14:30 ABG pO2 52 mmHg (80-100) L* 02/06/23 14:30 ABG HCO3 18.9 mmol/L (22.0-26.0) L 02/06/23 14:30 ABG Total CO2 19.9 MMOL/L (21.0-29.0) L 02/06/23 14:30 ABG O2 Saturation 88 % (94-98) L 02/06/23 14:30 ABG Base Excess -4.8 mmol/L (-2.0-3.0) L 02/06/23 14:30 Danis Test POSITIVE 02/06/23 14:30 VBG pH 7.481 (7.31-7.41) H 02/07/23 02:48 VBG pCO2 26.1 mmHg (41-51) L 02/07/23 02:48 VBG pO2 54.8 mmHg (25-47) H 02/07/23 02:48 VBG HCO3 19.0 mmol/L (23-28) L 02/07/23 02:48 VBG Total CO2 19.8 mmol/L (24-29) L 02/07/23 02:48 VBG O2 Saturation 91.9 % (60-80) H 02/07/23 02:48 VBG Base Excess -2.6 mmol/L (-2 - +2) L 02/07/23 02:48 Room Air YES 02/06/23 14:30 Sodium 144 mmol/L (135-145) 02/12/23 06:45 Potassium 4.0 mmol/L (3.5-5.0) 02/12/23 06:45 Chloride 106 mmol/L (101-111) 02/12/23 06:45 Carbon Dioxide 26 mmol/L (21-32) 02/12/23 06:45 Anion Gap 12.0 (6-13) 02/12/23 06:45 BUN 37 mg/dL (6-20) H 02/12/23 06:45 Creatinine 0.8 mg/dL (0.4-1.0) 02/12/23 06:45 Estimated GFR (MDRD) 71 (>89) L 02/12/23 06:45 Glucose 215 mg/dL (70-100) H 02/12/23 06:45 Estimat Average Glucose 108 mg/dL (70-100) H 02/07/23 05:50 Hemoglobin A1c % 5.4 % (4.27-6.07) 02/07/23 05:50 Lactic Acid 1.9 mmol/L (0.5-2.2) 02/08/23 06:45 Calcium 8.6 mg/dL (8.5-10.3) 02/12/23 06:45 Phosphorus 3.1 mg/dL (2.5-4.6) 02/12/23 06:45 Magnesium 2.2 mg/dL (1.7-2.8) 02/12/23 06:45 Total Bilirubin 0.3 mg/dL (0.2-1.0) 02/12/23 06:45 AST 37 IU/L (10-42) 02/12/23 06:45 ALT 51 IU/L (10-60) 02/12/23 06:45 Alkaline Phosphatase 107 IU/L (42-121) 02/12/23 06:45 Total Creatine Kinase 96 IU/L (22-269) 02/07/23 05:50 Total Protein 6.6 g/dL (6.7-8.2) L 02/12/23 06:45 Albumin 2.7 g/dL (3.2-5.5) L 02/12/23 06:45 Globulin 3.9 g/dL (2.1-4.2) 02/12/23 06:45 Albumin/Globulin Ratio 0.7 (1.0-2.2) L 02/12/23 06:45 Prealbumin 20 mg/dL (18-45) 02/12/23 06:45 Lipase 34 U/L (22-51) 02/06/23 11:17 Urine Color YELLOW 02/06/23 11:49 Urine Clarity CLEAR (CLEAR) 02/06/23 11:49 Urine pH 7.5 PH (5.0-7.5) 02/06/23 11:49 Ur Specific [place] 1.020 (1.002-1.030) 02/06/23 11:49 Urine Protein NEGATIVE mg/dL (NEGATIVE) 02/06/23 11:49 Urine Glucose (UA) NEGATIVE mg/dL (NEGATIVE) 02/06/23 11:49 Urine Ketones NEGATIVE mg/dL (NEGATIVE) 02/06/23 11:49 Urine Occult Blood TRACE-INTA (NEGATIVE) 02/06/23 11:49 Urine Nitrite NEGATIVE (NEGATIVE) 02/06/23 11:49 Urine Bilirubin NEGATIVE (NEGATIVE) 02/06/23 11:49 Urine Urobilinogen 0.2 (NORMAL) E.U./dL (NORMAL) 02/06/23 11:49 Ur Leukocyte Esterase NEGATIVE (NEGATIVE) 02/06/23 11:49 Ur Microscopic Review NOT INDICATED 02/06/23 11:49 Urine Culture Comments NOT INDICATED 02/06/23 11:49 CSF Color STRAW (COLORLESS) 02/06/23 13:55 CSF Clarity CLOUDY (CLEAR) 02/06/23 13:55 Xanthrochromic ABSENT (ABSENT) 02/06/23 13:55 CSF WBC 8140 /mm^3 (0-5) H* 02/06/23 13:55 CSF RBC 25 /mm^3 (0-1) H 02/06/23 13:55 CSF Cell Count Tube # CSF TUBE# 3 02/06/23 13:55 CSF Neutrophils 100 % (0-6) H 02/06/23 13:55 CSF Glucose < 5 mg/dL (45-70) L* 02/06/23 13:55 CSF Total Protein 912 mg/dL (15-60) H 02/06/23 13:55 Nasal Adenovirus (PCR) NOT DETECTED 02/06/23 11:41 Nasal B. parapertussis DNA (PCR) NOT DETECTED 02/06/23 11:41 Nasal Coronavir 229E PCR NOT DETECTED 02/06/23 11:41 Nasal Coronavir HKU1 PCR NOT DETECTED 02/06/23 11:41 Nasal Coronavir NL63 PCR NOT DETECTED 02/06/23 11:41 Nasal Coronavir OC43 PCR NOT DETECTED 02/06/23 11:41 Nasal Enterovir/Rhinovir PCR NOT DETECTED 02/06/23 11:41 Nasal Influenza B PCR NOT DETECTED 02/06/23 11:41 Nasal Influenza A PCR NOT DETECTED 02/06/23 11:41 Nasal Parainfluen 1 PCR NOT DETECTED 02/06/23 11:41 Nasal Parainfluen 2 PCR NOT DETECTED 02/06/23 11:41 Nasal Parainfluen 3 PCR NOT DETECTED 02/06/23 11:41 Nasal Parainfluen 4 PCR NOT DETECTED 02/06/23 11:41 Nasal RSV (PCR) NOT DETECTED 02/06/23 11:41 Nasal B.pertussis DNA PCR NOT DETECTED 02/06/23 11:41 Nasal C.pneumoniae (PCR) NOT DETECTED 02/06/23 11:41 Rufino Human Metapneumo PCR NOT DETECTED 02/06/23 11:41 Nasal M.pneumoniae (PCR) NOT DETECTED 02/06/23 11:41 Nasal SARS-CoV-2 (PCR) NOT DETECTED 02/06/23 11:41 Urine Opiates Screen POSITIVE (NEGATIVE) H 02/06/23 11:49 Ur Oxycodone Screen NEGATIVE (NEGATIVE) 02/06/23 11:49 Urine Methadone Screen NEGATIVE (NEGATIVE) 02/06/23 11:49 Ur Propoxyphene Screen NEGATIVE (NEGATIVE) 02/06/23 11:49 Ur Barbiturates Screen NEGATIVE (NEGATIVE) 02/06/23 11:49 Ur Tricyclics Screen NEGATIVE (NEGATIVE) 02/06/23 11:49 Ur Phencyclidine Scrn NEGATIVE (NEGATIVE) 02/06/23 11:49 Ur Amphetamine Screen POSITIVE (NEGATIVE) H 02/06/23 11:49 U Methamphetamines Scrn POSITIVE (NEGATIVE) H 02/06/23 11:49 U Benzodiazepines Scrn NEGATIVE (NEGATIVE) 02/06/23 11:49 Urine Cocaine Screen NEGATIVE (NEGATIVE) 02/06/23 11:49 U Cannabinoids Screen NEGATIVE (NEGATIVE) 02/06/23 11:49 Ethyl Alcohol < 5.0 mg/dL 02/06/23 11:17 Sepsis Event Note (H) - Evaluation Current Stage of Sepsis: Sepsis Possible source of Sepsis: positive: Meningitis
[2023-02-12 17:43] VITALS: BP 139/69
--- NOTE | 2023-02-12 19:07 | Discharge Plan ---
Discharge Plan Problem Reviewed?: Yes Disposition: 20 Instruction Topics: Meningitis Bacterial No Smoking: If you smoke, Please STOP! Call for help.
--- NOTE | 2023-02-13 08:05 | DISCHARGE SUMMARY ---
Discharge Summary Admit Date: 02/06/23 Discharge Date: 02/12/23 Discharging Provider: Dr Mervat Barragan Primary Care Provider: None on file Discharge Disposition: 20 - HPI History of Present Illness: 68-year-old female who has a history of breast cancer, hypertension, osteoporosis, frozen R shoulder, and continuous heroin and methamphetamine abuse that presents being found down in her apartment. Her landlady Jailene Finch was the one that found her and called EMS. The patient was described as having a bad headache last night. Not much else described. This morning when Jailene went to go check on her, patient was down in her apartment and EMS was called. She was initially evaluated as a possible subdural since she had left gaze deviation and was unresponsive except to touch. CT head was negative. Eventually she underwent an LP which is positive for meningitis. She has received empiric antibiotic therapy in the emergency room. The ER provider, Dr. Walter, and I discussed the case regarding any other possible causes of her being found down other than the meningitis, and so far there is no stroke, no other source of infection, and unfortunately no antecedent history. Specifically we thought about drug overdose. Her drug screen is pos for Methamphetamine and Opiates. I am now admitting the patient to [facility] on telemetry and will be tried giving empiric antibiotic therapy for meningitis. Because this patient is critically ill, I did attempt to call family members or friends that she has listed in her clinic chart. I called her estranged Luis Fox at [phone]. The person who answered the phone stated he was not at home and a message was left for him to call me but when I called Ms Finch she informed me that he is . She is startled that someone would actually "take my name and number to call me because she was at his bedside when he ". The patient has living relatives in the form of children and sister. However, because of the patient's substance abuse she is no longer in contact with anybody in her family. Ms. Finch is the only person that speaks to her. But Jailene says that she is not a formal power of radio operator. However, in discussing life, events, and shared confidences, the patient has shared with Ms Hinds that she would not want to be kept on life support. I have reviewed her clinic chart, her main problems over the last year have been screenings for STDs, pain from a right frozen shoulder and referral to orthopedics, a few emergency room visits for UTIs and abdominal pain, and a tooth infection. - HOSPITAL COURSE Hospital Course: 1) Coma She had decorticate posturing which slackened somewhat. Her left eye was fixed and deviated and pupils were minimally responsive and Babinski's were not responsive. She had Kussmaul breathing. We ruled out abscess, and by labs, she was responding to her iv antibiotics. We have no EEG here to eval for brain , or a Neurologist here for consultation (at this [facility]). We were unable to find a family member or a legal DPOA, until the [employer] was contacted after several days and we got name of a step-daughter, who was contacted. From the step-daughter we learned there was a natural daughter and son and a sister with whom she was estranged. I discussed the patient's critical status with them. Patient had been made a DNR at admission, after speaking to the friend Jailene at admission. The patient's sister said that she remembered a discussion about her CODE STATUS. There was no request to change her CODE STATUS from DNR to full code, by any of the family members, whom I spoke to. I discussed her poor prognosis. They arrived to see her. She moments after they arrived. 2) Streptococcal pneumonia meningitis She was put on iv Rocephin, vancomycin, ampicillin. Once her cultures came back positive for strep pneumonia, this was de-escalated to Rocephin alone. White cell count improved. Initial lactic acidosis and sepsis criteria resolved. We had her on maintenance IVs off and on to make sure to not cause fluid overload. Unfortunately, she did not wake up. Her initial decorticate posturing gradually slackened. Her left eye was no longer fixed and deviated but pupils remain minimally responsive and Babinski's were not responsive. We repeated the CT of her head to make sure she was not herniating and to make sure there was no abscesses. The CT of her head was negative from February 08. Also, repeat blood cultures, to make sure she was responding to the Rocephin, were negative on February 08. 3) Strep bacteremia As above in #2. An Echo was ordered to evaluate for endocarditis 4) IV drug abuse Her drug screen was positive for methamphetamine, amphetamine and opiates. Her Echo was not done before she (no Paste Up Worker available the days she was here). 5) Protein calorie malnutrition. We placed an NG tube on February 09, and started her on tube feedings and were adjusting her tube feedings to meet caloric requirements. Also she got free water flushes through her NG tube as well. 6) Hypertension. She had a history of hypertension. Her Zestoretic was resumed and given as Lisinopril and HCTZ via NG with crushing the tablets and we use Amlodipine. 7) Hypokalemia Replacement was given 8) Sepsis Initial lactic acidosis and sepsis criteria resolved - ALLERGIES Allergies/Adverse Reactions: Allergies Allergy/AdvReac Type Severity Reaction Status Date / Time codeine Allergy Rash Verified 02/06/23 11:27 Latex, Natural Rubber Allergy Rash Verified 02/06/23 11:27 - MEDICATIONS Home Medications: Ambulatory Orders Medication Instructions Recorded Confirmed Lisinopril/Hydrochlorothiazide 1 each PO DAILY 02/07/23 02/07/23 [Zestoretic 20-12.5 mg Tablet] - LABS Result Diagrams: 02/12/23 06:45 02/12/23 06:45 - SEPSIS Current Stage of Sepsis: Sepsis Possible source of Sepsis: Meningitis
[2023-02-13] MEDS ORDERED: amLODIPine 5 MG TABLET PO SCH (09:00)
== END 2023-02-12 21:00 | disposition expired | DRG 871 ==
LOC: EDBD → EDUNIT# → ED 11:13 → ICU 15:48 → MS2 17:18
PROVIDERS: ADMIT Specialist; ATTEND Internal Medicine
DX: G00.9 Bacterial meningitis, unspecified (principal); G93.40 Encephalopathy, unspecified; D72.829 Elevated white blood cell count, unspecified; A40.3 Sepsis due to Streptococcus pneumoniae; Z20.822 Contact with and (suspected) exposure to COVID-19; G00.1 Pneumococcal meningitis; R40.20 Unspecified coma; E46 Unspecified protein-calorie malnutrition; E87.20 Acidosis, unspecified; R64 Cachexia; M81.0 Age-related osteoporosis without current pathological fracture; I10 Essential (primary) hypertension; F15.10 Other stimulant abuse, uncomplicated; F11.10 Opioid abuse, uncomplicated; E87.6 Hypokalemia; R73.9 Hyperglycemia, unspecified; R06.82 Tachypnea, not elsewhere classified; R59.0 Localized enlarged lymph nodes; Z66 Do not resuscitate; Z85.3 Personal history of malignant neoplasm of breast; Z87.891 Personal history of nicotine dependence
CPT/HCPCS: 36415; 36556; 36600; 51702; 62270; 70450; 70496; 70498; 71045; 71260; 72125; 74177; 80048; 80053; 80306; 81003; 82272; 82550; 82803; 82945; 83036; 83605; 83690; 83735; 84100; 84134; 84157; 85025; 87040; 87070; 87077; 87150; 87181; 87205; 87633; 89051; 94660; 96361; 96374; 96375; 99285; 99291; 99292; A9270; G0480; J0131; J2060; J3370; Q9967; 80320; 81001; 82270; 87086; 87640